=== PATIENT | female | born 1950 | race Caucasian/White ===

== ENCOUNTER 2017-01-23 01:56 | Emergency (ER) | payer MEDICARE, OTHER ==
[2017-01-23] MEDS ORDERED: Aspirin Low Dose CHEW TAB* 81 MG PO ONE (02:21)
[2017-01-23 03:03] LABS: Hematocrit 40 % (35-47); Hemoglobin 13.5 g/dl (12.0-16.0); Mean Corpuscular HGB Conc 34 g/dl (31-36); Mean Corpuscular Hemoglobin 29 pg (27-31); Mean Corpuscular Volume 87 fL (80-97); Mean Platelet Volume 9 um3 (7.4-10.4); Red Blood Count 4.65 10^6/ul (4.0-5.4); Red Cell Distribution Width 14 % (10.5-15)
[2017-01-23 03:16] LABS: Albumin 3.8 g/dL (3.2-5.2); BUN/Creatinine Ratio 23.3 (8-20); Calcium 9.5 mg/dL (8.6-10.3); EGFR African American 102.6 (>60); EGFR Non-African American 79.8 (>60); Globulin 2.7 g/dL (2-4); Potassium 3.9 mmol/L (3.5-5.0); Total Bilirubin 0.3 mg/dL (0.2-1.0); Total Protein 6.5 g/dL (6.4-8.9)
[2017-01-23 03:19] LABS: Troponin I 0.01 ng/mL (<0.04)
[2017-01-23] MEDS ORDERED: Iohexol 350* (CONTRAST) 500 ML MDV IV ONE (03:53)
--- NOTE | 2017-01-23 04:33 | ED ---
yudith Douglas Timothy, scribed for Gwyn Mckinney MD on 01/23/17 at 0214 . HPI Chest Pain - HPI Summary HPI Summary: Daxa Perez is a 66 yo female presenting to [facility] with constant SOB and 8 /10 chest tightness worsening for the past 3 days. She states it is hard to breathe and hard to move, and these actions increase her pain. She has self- medicated with ibuprofen with mild relief. Her MHx includes anus CA 2006, claustraphobia. - History of Current Complaint Time Seen by Provider: 01/23/17 02:20 Hx Obtained From: Patient Onset/Duration: Started Days Ago, Still Present Timing: Constant Initial Severity: Worse Since: - now Current Severity: Moderate Pain Intensity: 8 Pain Scale Used: 0-10 Numeric Chest Pain Location: Diffuse Character: Dyspnea at Rest, Tightness Aggravating Factor(s): Movement, Deep Breaths Associated Signs and Symptoms: Positive: Chest Pain, Shortness of Breath - Allergy/Home Medications Allergies/Adverse Reactions: Allergies Allergy/AdvReac Type Severity Reaction Status Date / Time Sulfa Drugs Allergy Intermediate Hives Verified 03/18/14 10:48 Cold Allergy Airway Uncoded 01/23/17 02:10 Obstruction PMH/Surg Hx/FS Hx/Imm Hx Endocrine/Hematology History: Denies: Hx Diabetes Cardiovascular History: Denies: Hx Hypertension, Hx Pacemaker/ICD History: Denies: Hx Dialysis, Hx Renal Disease Musculoskeletal History: Denies: Hx Osteoporosis Sensory History: Denies: Hx Hearing Aid Psychiatric History: Denies: Hx Panic Disorder - Cancer History Cancer Type, Location and Year: ANUS CA 2006 - Surgical History Surgery Procedure, Year, and Place: CYSTOSCOPY AGE 20. 2006 REMOVAL OF CANCER FROM ANUS Infectious Disease History: Denies: Traveled Outside the [place] in Last 30 Days - Family History Known Family History: Positive: Cardiac Disease - maternal, Other - stroke maternal, leukemia paternal - Social History Alcohol Use: None Substance Use Type: Reports: None Hx Tobacco Use: No Smoking Status (MU): Never Smoked Tobacco Review of Systems Constitutional: Negative Eyes: Negative ENT: Negative Positive: Chest Pain - tightness Positive: Shortness Of Breath Gastrointestinal: Negative Genitourinary: Negative Musculoskeletal: Negative Skin: Negative Neurological: Negative Psychological: Normal All Other Systems Reviewed And Are Negative: Yes Physical Exam Triage Information Reviewed: Yes Vital Signs On Initial Exam: Initial Vitals Temp Pulse Resp BP Pulse Ox 97.2 F 56 18 113/99 99 01/23/17 01:58 01/23/17 01:58 01/23/17 01:58 01/23/17 01:58 01/23/17 01:58 Vital Signs Reviewed: Yes Appearance: Positive: Well-Appearing, No Pain Distress Skin: Positive: Warm Head/Face: Positive: Normal Head/Face Inspection Eyes: Positive: TUCKER ENT: Positive: Hearing grossly normal Neck: Positive: Supple, Nontender Respiratory/Lung Sounds: Positive: Clear to Auscultation, Breath Sounds Present Cardiovascular: Positive: RRR Abdomen Description: Positive: Nontender, Soft Bowel Sounds: Positive: Present Musculoskeletal: Positive: Strength/ROM Intact Neurological: Positive: Alert, Oriented to Person Place, Time Psychiatric: Positive: Affect/Mood Appropriate Diagnostics - Vital Signs Vital Signs Temp Pulse Resp BP Pulse Ox 01/23/17 01:58 97.2 F 56 18 113/99 99 - Laboratory Lab Results: Lab Results 01/23/17 01/23/17 01/23/17 Range/Units 02:45 02:45 02:45 WBC 6.0 (3.5-10.8) 10^3/ul RBC 4.65 (4.0-5.4) 10^6/ul Hgb 13.5 (12.0-16.0) g/dl Hct 40 (35-47) % MCV 87 (80-97) fL MCH 29 (27-31) pg MCHC 34 (31-36) g/dl RDW 14 (10.5-15) % Plt Count 179 (150-450) 10^3/ul MPV 9 (7.4-10.4) um3 Neut % (Auto) 73.1 (38-83) % Lymph % (Auto) 15.4 L (25-47) % [place] % (Auto) 5.3 (1-9) % Eos % (Auto) 4.5 (0-6) % Baso % (Auto) 1.7 (0-2) % Absolute Neuts (auto) 4.4 (1.5-7.7) 10^3/ul Absolute Lymphs (auto) 0.9 L (1.0-4.8) 10^3/ul Absolute Monos (auto) 0.3 (0-0.8) 10^3/ul Absolute Eos (auto) 0.3 (0-0.6) 10^3/ul Absolute Basos (auto) 0.1 (0-0.2) 10^3/ul Absolute Nucleated RBC 0 10^3/ul Nucleated RBC % 0.1 D-Dimer, Quantitative (Less Than 230) ng/mL Sodium 135 (133-145) mmol/L Potassium 3.9 (3.5-5.0) mmol/L Chloride 104 (101-111) mmol/L Carbon Dioxide 28 (22-32) mmol/L Anion Gap 3 (2-11) mmol/L BUN 17 (6-24) mg/dL Creatinine 0.73 (0.51-0.95) mg/dL Est GFR ( Amer) 102.6 (>60) Est GFR (Non-Af Amer) 79.8 (>60) BUN/Creatinine Ratio 23.3 H (8-20) Glucose 98 (70-100) mg/dL Lactic Acid 0.7 (0.5-2.0) mmol/L Calcium 9.5 (8.6-10.3) mg/dL Total Bilirubin 0.30 (0.2-1.0) mg/dL AST 16 (13-39) U/L ALT 18 (7-52) U/L Alkaline Phosphatase 74 (34-104) U/L Troponin I 0.01 (<0.04) ng/mL Total Protein 6.5 (6.4-8.9) g/dL Albumin 3.8 (3.2-5.2) g/dL Globulin 2.7 (2-4) g/dL Albumin/Globulin Ratio 1.4 (1-3) 01/23/17 Range/Units 02:45 WBC (3.5-10.8) 10^3/ul RBC (4.0-5.4) 10^6/ul Hgb (12.0-16.0) g/dl Hct (35-47) % MCV (80-97) fL MCH (27-31) pg MCHC (31-36) g/dl RDW (10.5-15) % Plt Count (150-450) 10^3/ul MPV (7.4-10.4) um3 Neut % (Auto) (38-83) % Lymph % (Auto) (25-47) % [place] % (Auto) (1-9) % Eos % (Auto) (0-6) % Baso % (Auto) (0-2) % Absolute Neuts (auto) (1.5-7.7) 10^3/ul Absolute Lymphs (auto) (1.0-4.8) 10^3/ul Absolute Monos (auto) (0-0.8) 10^3/ul Absolute Eos (auto) (0-0.6) 10^3/ul Absolute Basos (auto) (0-0.2) 10^3/ul Absolute Nucleated RBC 10^3/ul Nucleated RBC % D-Dimer, Quantitative 237 H (Less Than 230) ng/mL Sodium (133-145) mmol/L Potassium (3.5-5.0) mmol/L Chloride (101-111) mmol/L Carbon Dioxide (22-32) mmol/L Anion Gap (2-11) mmol/L BUN (6-24) mg/dL Creatinine (0.51-0.95) mg/dL Est GFR ( Amer) (>60) Est GFR (Non-Af Amer) (>60) BUN/Creatinine Ratio (8-20) Glucose (70-100) mg/dL Lactic Acid (0.5-2.0) mmol/L Calcium (8.6-10.3) mg/dL Total Bilirubin (0.2-1.0) mg/dL AST (13-39) U/L ALT (7-52) U/L Alkaline Phosphatase (34-104) U/L Troponin I (<0.04) ng/mL Total Protein (6.4-8.9) g/dL Albumin (3.2-5.2) g/dL Globulin (2-4) g/dL Albumin/Globulin Ratio (1-3) Result Diagrams: 01/23/17 02:45 01/23/17 02:45 Lab Statement: Any lab studies that have been ordered have been reviewed, and results considered in the medical decision making process. - Radiology CXR Xray Interpretation: No Acute Changes - No active disease Radiology Interpretation Completed By: ED Physician - CT Chest/Thorax CTA CT Interpretation: No Acute Changes - Impression: No Pulmonary embolism identified. Air trapping noted bilaterally. Correlate for asthma or COPD exacerbation. No other acute abnormality seen in the chest or visualized in the upper abdomen. CT Interpretation Completed By: Radiologist - imaging business process consultant - EKG 0217 Cardiac Rate: Bradycardia - 52 BPM EKG Interpretation: Sinus bradycardia @ 52 BPM WNL Re-Evaluation - Re-Evaluation First Eval Re-Evaluation Time: 03:22 Change: Improved Comment: Discussed results of lab and imaging studies with Pt and her daughter. Chest Pain Course/Dx - Course Assessment/Plan: Daxa Perez is a 66 yo female presenting to [facility] with 8 /10 chest tightness and SOB worsening for the past 3 days, made worse with deep breaths and movement. In the ED course she received ASA. Her EKG suggests sinus bradycardia WNL. Her CXR suggests no active disease. Her Chest/Thorax CTA suggests air trapping bilaterally and no other acute abnormality. After clinical examination and review of her lab and imaging studies, she will be is charged home with chest pain with appropriate instructions. - Diagnoses Provider Diagnoses: Chest pain Discharge - Discharge Plan Condition: Improved Disposition: HOME Patient Education Materials: Chest Pain (ED) Referrals: Amira Chavis MD [Primary Care Provider] - 2 Days Additional Instructions: Please follow up with your primary care physician regarding your visit to the emergency department today. Return to the emergency department with any new or recurring symptoms. The documentation as recorded by the yudith braun Timothy accurately reflects the service I personally performed and the decisions made by me, Gwyn Mckinney MD.
[2017-01-23 05:01] VITALS: BP 104/56
--- NOTE | 2017-01-23 07:53 | RAD ---
HISTORY: Chest pain, shortness of breath COMPARISONS: November 29, 2010 VIEWS: 2: Frontal dual-energy and lateral views of the chest. FINDINGS: CARDIOMEDIASTINAL SILHOUETTE: The cardiomediastinal silhouette is normal. HERNANDO: The hernando are normal. PLEURA: The costophrenic angles are sharp. No pleural abnormalities are noted. LUNG PARENCHYMA: The lungs are clear. ABDOMEN: The upper abdomen is clear. There is no subphrenic gas. BONES AND SOFT TISSUES: Degenerative changes are noted of the spine. There is scoliotic curvature of the spine OTHER: None. IMPRESSION: NO ACTIVE CARDIOPULMONARY DISEASE.
--- NOTE | 2017-01-23 08:06 | RAD ---
INDICATION: Shortness of breath and elevated d-dimer. COMPARISON: Comparison is made with a prior outside PET/CT study from February 24, 2014 and a chest x-ray study from January 23, 2017. TECHNIQUE: A CT angiogram of the chest was performed with intravenous following intravenous injection of 69 ml of Omnipaque 350 nonionic contrast. Contiguous axial sections were obtained from the lung apices through the lung bases. Images were reconstructed in the coronal and sagittal planes. FINDINGS: There is relatively homogeneous opacification of the pulmonary arteries. No intraluminal filling defect or pulmonary embolism is seen. The heart is within normal limits in size. No pericardial effusion is present. The aorta is normal in caliber. No significant enlarged mediastinal or hilar lymph nodes are seen. There are numerous calcified and noncalcified small bilateral pulmonary nodules. The nodules appears similar to the prior PET/CT study taken in account differences in technique and would be consistent with old granulomatous disease. There is mild bilateral air trapping. No significant infiltrate or pleural effusion is seen. No acute finding is seen within the upper abdomen. There is a [id number] dorsal scoliosis convex toward the right side. No significant focal osseous abnormality is seen. IMPRESSION: 1. NO EVIDENCE FOR PULMONARY EMBOLISM. 2. FINDINGS CONSISTENT WITH OLD GRANULOMATOUS DISEASE.
== END 2017-01-23 05:02 | disposition home or self-care (01) ==
LOC: ED 01:56
DX: R07.9 Chest pain, unspecified (principal); R06.02 Shortness of breath
CPT/HCPCS: 36415; 71020; 71275; 80053; 83605; 84484; 85025; 85379; 93005; 99283; A9270-GY; Q9967

== ENCOUNTER 2017-02-17 15:16 | Emergency (ER) | payer MEDICARE ==
[2017-02-17 15:25] VITALS: BP 106/69
[2017-02-17] MEDS ORDERED: Ondansetron ODT TAB* 4 MG PO ONE ×2 (15:47→16:41)
[2017-02-17] MEDS ORDERED: Al Hydrox/Mg Hydrox/Simet LIQ* 30 ML UDC PO ONE (15:48)
--- NOTE | 2017-02-17 15:55 | UC ---
Abdominal Pain Female HPI - HPI Summary HPI Summary: 66 yo female inadvertently drank a couple of sips of tea that had a descaling solution in tip mid gi upset and bruning Poison Control suggest that this is a non life threatening ingestion and symptomatic treatment only main ingredient citric acid - History of Current Complaint Chief Complaint: UCGI Stated Complaint: DRANK CLEANING SOLUTION Time Seen by Provider: 02/17/17 15:33 Allergies/Adverse Reactions: Allergies Allergy/AdvReac Type Severity Reaction Status Date / Time Sulfa Drugs Allergy Intermediate Hives Verified 02/17/17 15:25 Cold Allergy Airway Uncoded 01/23/17 02:10 Obstruction Home Medications: Home Medications [place]-3 Fatty Acids [Fish Oil] 02/17/17 [History] Turmeric (Curcuma Longa) (Bulk [Turmeric] 1 pow XX 02/17/17 [History] PMH/Surg Hx/FS Hx/Imm Hx - Surgical History Surgical History: Yes Surgery Procedure, Year, and Place: CYSTOSCOPY AGE 20. 2006 REMOVAL OF CANCER FROM ANUS - Family History Known Family History: Positive: Cardiac Disease - maternal, Other - stroke maternal, leukemia paternal - Social History Alcohol Use: None Substance Use Type: None Smoking Status (MU): Never Smoked Tobacco Review of Systems Constitutional: Negative Skin: Negative Eyes: Negative ENT: Negative Respiratory: Negative Cardiovascular: Negative Gastrointestinal: Nausea Genitourinary: Negative Motor: Negative Neurovascular: Negative Musculoskeletal: Negative Neurological: Negative Psychological: Negative All Other Systems Reviewed And Are Negative: Yes Physical Exam Triage Information Reviewed: Yes Appearance: Well-Appearing, No Pain Distress, Well-Nourished Vital Signs: Initial Vital Signs Temp 98.2 F 02/17/17 15:20 Pulse 74 02/17/17 15:20 Resp 16 02/17/17 15:20 BP 106/69 02/17/17 15:20 Pulse Ox 100 02/17/17 15:20 Eye Exam: Normal Eyes: Positive: Conjunctiva Clear ENT: Positive: Hearing grossly normal. Negative: Nasal congestion, Nasal drainage, Tonsillar exudate, Trismus, Muffled/hoarse voice Neck: Positive: Supple, Nontender, No Lymphadenopathy Respiratory: Positive: Lungs clear, Normal breath sounds, No respiratory distress, No accessory muscle use Cardiovascular: Positive: RRR, No Murmur Abdomen Description: Positive: Nontender, Soft Musculoskeletal: Positive: ROM Intact, No Edema Neurological: Positive: Alert Psychological Exam: Normal Skin Exam: Normal Re-Evaluation - Re-Evaluation First Eval Re-Evaluation Time: 16:35 Change: Improved - no nausea/no longer burping Abd Pain Female Course/Dx - Differential Dx/Diagnosis Provider Diagnoses: esophagitis Discharge - Discharge Plan Condition: Stable Disposition: HOME Patient Education Materials: Esophagitis (ED) Referrals: Marlee Clay MD [Primary Care Provider] - If Needed Additional Instructions: MYLANTA 30 ML (2 tablespoons) every 2 hours while awake for 2-3 days
== END 2017-02-17 16:59 | disposition home or self-care (01) ==
LOC: UCEAST 15:16
DX: T65.891A Toxic effect of other specified substances, accidental (unintentional), initial encounter (principal); K20.9 Esophagitis, unspecified; Y92.9 Unspecified place or not applicable; Z88.2 Allergy status to sulfonamides
CPT/HCPCS: 99213; A9270-GY; G0463

== ENCOUNTER 2018-04-27 10:30 | Emergency (ER) | payer MEDICARE ==
[2018-04-27] MEDS ORDERED: Famotidine TAB* 20 MG PO ONE (11:33)
--- NOTE | 2018-04-27 12:04 | ED ---
Allergic Reaction/Systemic - HPI Summary HPI Summary: Patient is a 68-year-old female presenting to the ED with a possible allergic reaction. Patient states she was stung by a bee or a wasp this morning twice. She immediately took 50 of Benadryl and proceeded to go to [facility]. When she arrived at [facility] she started feeling dizzy, lightheaded with some sore throat symptoms. She called the ambulance and arrives stable into the ED. She is endorsing some mild chest pressure and tightening of the throat. She remains able to communicate well, and appears well. - History of Current Complaint Chief Complaint: EDAllergicReaction Time Seen by Provider: 04/27/18 10:35 Hx Obtained From: Patient Onset/Duration: Sudden Onset Timing: Constant Severity Initially: Moderate Severity Currently: Moderate Pain Intensity: 2 Pain Scale Used: 0-10 Numeric Associated Signs And Symptoms: Positive: Negative - Allergies/Home Medications Allergies/Adverse Reactions: Allergies Allergy/AdvReac Type Severity Reaction Status Date / Time Sulfa (Sulfonamide Allergy Hives Verified 04/27/18 10:44 Antibiotics) Cold Allergy Airway Uncoded 04/27/18 10:44 Obstruction Home Medications: Home Medications Meclizine HCl 12.5 mg PO TID PRN 04/27/18 [History Confirmed 04/27/18] PMH/Surg Hx/FS Hx/Imm Hx Previously Healthy: Yes Endocrine/Hematology History: Denies: Hx Diabetes Cardiovascular History: Denies: Hx Hypertension, Hx Pacemaker/ICD History: Denies: Hx Dialysis, Hx Renal Disease Musculoskeletal History: Denies: Hx Osteoporosis Sensory History: Denies: Hx Hearing Aid Psychiatric History: Denies: Hx Panic Disorder - Cancer History Cancer Type, Location and Year: ANUS CA 2006 - Surgical History Surgery Procedure, Year, and Place: CYSTOSCOPY AGE 20. 2006 REMOVAL OF CANCER FROM ANUS - Immunization History Hx Pertussis Vaccination: No Immunizations Up to Date: Unable to Obtain/Confirm Infectious Disease History: No Infectious Disease History: Denies: Traveled Outside the [place] in Last 30 Days - Family History Known Family History: Positive: Cardiac Disease - maternal, Other - stroke maternal, leukemia paternal - Social History Occupation: Unemployed Lives: With Family Alcohol Use: None Hx Substance Use: No Substance Use Type: Reports: None Hx Tobacco Use: No Smoking Status (MU): Never Smoked Tobacco Review of Systems Constitutional: Negative Negative: Fever, Chills, Fatigue, Skin Diaphoresis Negative: Sore Throat, Ear Ache, Nasal Discharge Negative: Palpitations, Chest Pain Negative: Shortness Of Breath, Cough Positive: no symptoms reported, see HPI Musculoskeletal: Negative Negative: Arthralgia, Myalgia Positive: Rash - 2 inesct wound - one to the leg and one to the back - erythematous and pruritic - without ecchymosis or swelling. Negative: Bruising Negative: Anxious, Depressed All Other Systems Reviewed And Are Negative: Yes Physical Exam Triage Information Reviewed: Yes Vital Signs On Initial Exam: Initial Vitals Temp Pulse Resp BP Pulse Ox 97.7 F 65 16 112/77 97 04/27/18 10:36 04/27/18 10:36 04/27/18 10:36 04/27/18 10:36 04/27/18 10:36 Vital Signs Reviewed: Yes Appearance: Positive: Well-Appearing, Well-Nourished Skin: Positive: Warm, Skin Color Reflects Adequate Perfusion Head/Face: Positive: Normal Head/Face Inspection Eyes: Positive: EOMI, TUCKER, Conjunctiva Clear Neck: Positive: Supple, No Lymphadenopathy Respiratory/Lung Sounds: Positive: Clear to Auscultation, Breath Sounds Present Cardiovascular: Positive: RRR, Pulses are Symmetrical in both Upper and Lower Extremities Musculoskeletal: Positive: Normal, Strength/ROM Intact Neurological: Positive: Sensory/Motor Intact, Alert, Oriented to Person Place, Time, Speech Normal Psychiatric: Positive: Normal, Affect/Mood Appropriate AVPU Assessment: Alert Diagnostics - Vital Signs Vital Signs Temp Pulse Resp BP Pulse Ox 04/27/18 11:00 64 97 04/27/18 10:49 64 95 04/27/18 10:36 97.7 F 65 16 112/77 97 - Laboratory Lab Statement: Any lab studies that have been ordered have been reviewed, and results considered in the medical decision making process. Allergic Reaction Course/Dx - Course Course Of Treatment: Patient's evaluated for allergic reaction. Airway patent, no pharyngeal erythema or symptoms of throat closing. Lungs CTA. RRR. Patient appears very well in speaking normally. Since she has taken Benadryl 2 hours prior to arrival, she is given famotidine. Discussed giving steroids, but she would like to defer at this time due to potential side effects. Reassessment approximately 40 minutes later, she has improved and states she is okay for discharge. She is given return precautions. - Diagnoses Differential Diagnosis/HQI/PQRI: Positive: Local Allergic Reaction Provider Diagnoses: Allergic reaction Discharge - Sign-Out/Discharge Documenting (check all that apply): Patient Departure - Discharge Plan Condition: Stable Disposition: HOME Referrals: Marlee Clay MD [Primary Care Provider] - - Billing Disposition and Condition Condition: STABLE Disposition: Home
[2018-04-27 12:05] VITALS: BP 103/63
[2018-04-27] MEDS ORDERED: Albuterol HFA INHALER* 8 gm MDI INH ONE (12:12)
== END 2018-04-27 12:18 | disposition home or self-care (01) ==
LOC: ED 10:30
DX: T78.40XA Allergy, unspecified, initial encounter (principal); X58.XXXA Exposure to other specified factors, initial encounter; Z85.048 Personal history of other malignant neoplasm of rectum, rectosigmoid junction, and anus
CPT/HCPCS: 99282; A9270-GY

== ENCOUNTER 2018-05-10 17:14 | Emergency (ER) | payer MEDICARE ==
[2018-05-10] MEDS ORDERED: NS 0.9% 1000 ML* 1,000 ML IV ONE (17:30)
[2018-05-10 17:50] LABS: ABS Basophils 0.1 10^3/ul (0-0.2); ABS Eosinophils 0.1 10^3/ul (0-0.6); ABS Monocytes 0.3 10^3/ul (0-0.8); ABS Neutrophils 5.3 10^3/ul (1.5-7.7); ABS Nucleated RBC 0 10^3/ul; Eosinophil % 2.2 % (0-6); Hematocrit 42 % (35-47); Hemoglobin 14.4 g/dl (12.0-16.0); Lymphocyte % 14.4 % (25-47); Mean Corpuscular HGB Conc 34 g/dl (31-36); Mean Corpuscular Hemoglobin 30 pg (27-31); Mean Corpuscular Volume 87 fL (80-97); Mean Platelet Volume 8.7 um3 (7.4-10.4); Nucleated Red Blood Cells % 0; Platelet Count 200 10^3/ul (150-450); Red Blood Count 4.81 10^6/ul (4.00-5.40); Red Cell Distribution Width 14 % (10.5-15); White Blood Count 6.8 10^3/ul (3.5-10.8)
--- NOTE | 2018-05-10 18:00 | ED ---
Syncope/Near Syncope - HPI Summary HPI Summary: Patient complains of lightheadedness, decreased ability to concentrate, shortness of breath, nausea after being in the sun today. Patient states she was reading in the sun for 40 minutes. Denies fever, AMS, focal deficits, MARIANO, CP, V/D, cough, sore throat, abdominal pain, change in urine, change in BM, . Medical history is A. fib. - History Of Current Complaint Chief Complaint: EDDizziness Time Seen by Provider: 05/10/18 17:43 Hx Obtained From: Patient Onset/Duration: Sudden Onset Timing: Constant Activity At Onset: At Rest Associated Head Trauma: No Aggravating Factor(s): Nothing Alleviating Factor(s): Nothing Associated Signs And Symptoms: Head Trauma (Remote), Lightheadedness, Shortness Of Breath - Allergies/Home Medications Allergies/Adverse Reactions: Allergies Allergy/AdvReac Type Severity Reaction Status Date / Time Sulfa (Sulfonamide Allergy Hives Verified 05/10/18 17:55 Antibiotics) Cold Allergy Airway Uncoded 05/10/18 17:29 Obstruction PMH/Surg Hx/FS Hx/Imm Hx Endocrine/Hematology History: Denies: Hx Anticoagulant Therapy, Hx Diabetes Cardiovascular History: Reports: Hx Atrial Fibrillation Denies: Hx Hypertension, Hx Pacemaker/ICD History: Denies: Hx Dialysis, Hx Renal Disease Musculoskeletal History: Denies: Hx Osteoporosis Sensory History: Denies: Hx Hearing Aid Neurological History: Denies: Hx CVA Psychiatric History: Denies: Hx Panic Disorder - Cancer History Cancer Type, Location and Year: ANUS CA 2006 - Surgical History Surgery Procedure, Year, and Place: CYSTOSCOPY AGE 20. 2006 REMOVAL OF CANCER FROM ANUS Infectious Disease History: No Infectious Disease History: Denies: Traveled Outside the [place] in Last 30 Days - Family History Known Family History: Positive: Cardiac Disease - maternal, Other - stroke maternal, leukemia paternal - Social History Alcohol Use: None Hx Substance Use: No Substance Use Type: Reports: None Hx Tobacco Use: No Smoking Status (MU): Never Smoked Tobacco Review of Systems Constitutional: Negative Eyes: Negative ENT: Negative Cardiovascular: Negative Positive: Shortness Of Breath Gastrointestinal: Negative Genitourinary: Negative Musculoskeletal: Negative Skin: Negative Neurological: Other - decreased ability to concentrate, lightheadedness Positive: Weakness Psychological: Normal All Other Systems Reviewed And Are Negative: Yes Physical Exam - Summary Physical Exam Summary: Neuro exam normal. Physical exam unremarkable. No peripheral edema Triage Information Reviewed: Yes Vital Signs On Initial Exam: Initial Vitals Temp Pulse Resp BP Pulse Ox 97.3 F 65 14 109/76 100 05/10/18 17:20 05/10/18 17:20 18 17:20 05/10/18 17:20 05/10/18 17:20 Vital Signs Reviewed: Yes Appearance: Positive: Well-Appearing Skin: Positive: Warm Head/Face: Positive: Normal Head/Face Inspection Eyes: Positive: Normal Neck: Positive: Supple Respiratory/Lung Sounds: Positive: Clear to Auscultation Cardiovascular: Positive: Normal Abdomen Description: Positive: Nontender Musculoskeletal: Positive: Normal Neurological: Positive: Normal Psychiatric: Positive: Normal AVPU Assessment: Alert - [place] Coma Scale Best Eye Response: 4 - Spontaneous Best Motor Response: 6 - Obeys Commands Best Verbal Response: 5 - Oriented Coma Scale Total: 15 Diagnostics - Vital Signs Vital Signs Temp Pulse Resp BP Pulse Ox 05/10/18 17:20 97.3 F 65 14 109/76 100 - Laboratory Lab Results: Lab Results 05/10/18 Range/Units 17:39 WBC 6.8 (3.5-10.8) 10^3/ul RBC 4.81 (4.00-5.40) 10^6/ul Hgb 14.4 (12.0-16.0) g/dl Hct 42 (35-47) % MCV 87 (80-97) fL MCH 30 (27-31) pg MCHC 34 (31-36) g/dl RDW 14 (10.5-15) % Plt Count 200 (150-450) 10^3/ul MPV 8.7 (7.4-10.4) um3 Neut % (Auto) 77.6 (38-83) % Lymph % (Auto) 14.4 L (25-47) % [place] % (Auto) 5.0 (0-7) % Eos % (Auto) 2.2 (0-6) % Baso % (Auto) 0.8 (0-2) % Absolute Neuts (auto) 5.3 (1.5-7.7) 10^3/ul Absolute Lymphs (auto) 1.0 (1.0-4.8) 10^3/ul Absolute Monos (auto) 0.3 (0-0.8) 10^3/ul Absolute Eos (auto) 0.1 (0-0.6) 10^3/ul Absolute Basos (auto) 0.1 (0-0.2) 10^3/ul Absolute Nucleated RBC 0 10^3/ul Nucleated RBC % 0 Result Diagrams: 05/10/18 17:39 05/10/18 19:15 Lab Statement: Any lab studies that have been ordered have been reviewed, and results considered in the medical decision making process. - Radiology cxr Xray Interpretation: No Acute Changes Radiology Interpretation Completed By: ED Physician - EKG 1 Cardiac Rate: NL EKG Rhythm: Sinus Rhythm ST Segment: Non-Specific Ectopy: None EKG Comparison: Other - 01/23/17 Course/Dx Course Of Treatment: Patient complains of lightheadedness, decreased ability to concentrate, shortness of breath, nausea after being in the sun today. Patient states she was reading in the sun for 40 minutes. Denies fever, AMS, focal deficits, MARIANO, CP, V/D, cough, sore throat, abdominal pain, change in urine, change in BM, . Medical history is A. fib. Neuro exam normal. Physical exam unremarkable. No peripheral edema. Patient ambulatory with minimal assistance. Vital signs within normal limits. UA neg. Labs unremarkable except for some dehydration. Chest x-ray unremarkable. EKG unremarkable and similar to prior on 01/23/17. Staff unable to get IV access, patient has agreed to hydrate by mouth. Has had 2 large cups of water here in the ED - Diagnoses Provider Diagnoses: Dehydration Discharge - Sign-Out/Discharge Documenting (check all that apply): Patient Departure - Discharge Plan Condition: Stable Disposition: HOME Patient Education Materials: Dehydration (ED) Referrals: Marlee Clay MD [Primary Care Provider] - Additional Instructions: Drink plenty of fluids. Maintain hydration. Return to the ED for any new or worsening symptoms - Billing Disposition and Condition Condition: STABLE Disposition: Home
[2018-05-10 18:05] LABS: EGFR Non-African American 81.9 (>60)
[2018-05-10 18:19] LABS: Urine Appearance Clear; Urine Blood 1+ (Negative); Urine Color Colorless; Urine Ketones Negative (Negative); Urine Protein Negative (Negative); Urine Red Blood Cell Trace(0-2/hpf) (Absent); Urine Specific Gravity 1.001 (1.010-1.030); Urine Urobilinogen Negative (Negative); Urine White Blood Cell Trace(0-5/hpf) (Absent)
[2018-05-10 19:35] LABS: INR 0.94 (0.77-1.02)
[2018-05-10] MEDS ORDERED: Meclizine TAB* 12.5 MG PO ONE (20:28)
[2018-05-10 20:51] VITALS: BP 134/83
--- NOTE | 2018-05-11 08:51 | RAD ---
INDICATION: Dizziness and nausea COMPARISON: Most recent comparison chest x-ray is dated January 23, 2017 TECHNIQUE: PA and lateral views of the chest were obtained. FINDINGS: The heart and mediastinum are normal in size and contour. The lungs are grossly clear. There is no evidence of large pleural effusion. Again seen are degenerative changes of the thoracic spine including loss of intervertebral disc height and anterior marginal osteophyte formation. There is no radiographic evidence of free air beneath the diaphragm IMPRESSION: No radiographic evidence of acute cardiopulmonary disease. R0
== END 2018-05-10 20:51 | disposition home or self-care (01) ==
LOC: ED 17:14
CPT/HCPCS: 36415; 71046; 80048; 81003; 81015; 83735; 83880; 84443; 84484; 85025; 85610; 87086; 93005

== ENCOUNTER 2018-06-04 07:41 | Observation (INO) | payer MEDICARE ==
--- NOTE | 2018-06-04 08:08 | ED ---
HPI Chest Pain - HPI Summary HPI Summary: This pt is a 68 y/o female presenting to [facility] c/o intermittent chest tightness for a couple of days now. Pt additionally reports SOB, right hand tingling, nausea, neck pain. She states most recent episode of chest tightness began this morning around 04:00. Pt notes radiation to left upper extremity and neck. At 06 :00 pt took 4 baby aspirin with no relief. Currently she states her pain is rated 7 or 8 out of 10 in severity. Pt reports she has had recent stress over the last couple of months and trouble sleeping. Pt states she was in the ED a couple of weeks ago for dizziness and nausea but was discharged with dehydration. She notes she saw her PCP (Dr. Rhoades) and had a brain MRI that resulted negative. Pt had an echocardiogram one week ago and followed up with her table games manager, who placed her in a holter monitor for the weekend. She has a scheduled stress test next week. PMHx includes head injury treated for at the concussion clinic, rectal CA treated with radiation, and cardiac cath for afib (16 years ago). Pt takes magnesium PO. - History of Current Complaint Chief Complaint: EDChestPainROMI Time Seen by Provider: 06/04/18 07:54 Hx Obtained From: Patient Onset/Duration: Started Days Ago, Still Present Timing: Lasting Days Current Severity: Severe Pain Intensity: 8 Pain Scale Used: 0-10 Numeric Chest Pain Location: Diffuse Chest Pain Radiates: No Character: Tightness Aggravating Factor(s): Nothing Alleviating Factor(s): Nothing Associated Signs and Symptoms: Positive: Chest Pain, Recent Stress, Tingling - right hand, Shortness of Breath, Nausea, Other: - neck pain. Negative: Fever, Chills, Vomiting - Allergy/Home Medications Allergies/Adverse Reactions: Allergies Allergy/AdvReac Type Severity Reaction Status Date / Time Sulfa (Sulfonamide Allergy Hives Verified 06/04/18 07:49 Antibiotics) Cold Allergy Airway Uncoded 06/04/18 07:49 Obstruction Home Medications: Home Medications Albuterol HFA INHALER* [Ventolin HFA Inhaler*] 2 puff INH Q6H PRN 06/04/18 [ History Confirmed 06/04/18] Aspirin 81 mg CHEW TAB* [Aspirin Low Dose TAB*] 81 mg PO DAILY PRN 06/04/18 [ History Confirmed 06/04/18] Cholecalciferol TAB* [Vitamin D TAB*] 1,000 unit PO DAILY 06/04/18 [History Confirmed 06/04/18] Cholecalciferol TAB* [Vitamin D TAB*] 1,000 unit PO DAILY 06/04/18 [History Confirmed 06/04/18] EPINEPHrine [Epipen 2-Sandor] 0.3 mg IM ONCE PRN 06/04/18 [History Confirmed ] Magnesium [Magnesium Elemental] 600 - 1,000 mg PO DAILY 06/04/18 [History Confirmed 06/04/18] Meclizine TAB* [Antivert 12.5 TAB*] 12.5 mg PO ONCE PRN 06/04/18 [History Confirmed 06/04/18] Melatonin (NF) 3 mg PO BEDTIME PRN 06/04/18 [History Confirmed 06/04/18] Multivitamin [Multiple Vitamins] 1 tab PO BID WITH MEALS 06/04/18 [History Confirmed 06/04/18] Salinas-3 Fatty Acids [Salinas-3] 1,000 mg PO DAILY 06/04/18 [History Confirmed 06/12] PMH/Surg Hx/FS Hx/Imm Hx Endocrine/Hematology History: Denies: Hx Anticoagulant Therapy, Hx Diabetes Cardiovascular History: Reports: Hx Atrial Fibrillation Denies: Hx Hypertension, Hx Pacemaker/ICD History: Denies: Hx Dialysis, Hx Renal Disease Musculoskeletal History: Denies: Hx Osteoporosis Sensory History: Denies: Hx Hearing Aid Neurological History: Reports: Other Neuro Impairments/Disorders - head injury Denies: Hx CVA Psychiatric History: Denies: Hx Panic Disorder - Cancer History Cancer Type, Location and Year: ANUS CA 2006 - Surgical History Surgery Procedure, Year, and Place: CYSTOSCOPY AGE 20. 2006 REMOVAL OF CANCER FROM [facility] Infectious Disease History: No Infectious Disease History: Denies: Traveled Outside the [place] in Last 30 Days - Family History Known Family History: Positive: Cardiac Disease - maternal, Other - stroke maternal, leukemia paternal - Social History Alcohol Use: None Hx Substance Use: No Substance Use Type: Reports: None Hx Tobacco Use: No Smoking Status (MU): Never Smoked Tobacco Review of Systems Negative: Fever, Chills Positive: Chest Pain Positive: Shortness Of Breath Positive: Nausea. Negative: Vomiting Musculoskeletal: Other - neck pain Positive: Paresthesia - in right hand All Other Systems Reviewed And Are Negative: Yes Physical Exam - Summary Physical Exam Summary: VITAL SIGNS: Reviewed. GENERAL: Patient is a well-developed and nourished female who is lying comfortable in the stretcher. Patient is not in any acute respiratory distress. HEAD AND FACE: No signs of trauma. No ecchymosis, hematomas or skull depressions. No sinus tenderness. EYES: PERRLA, EOMI x 2, No injected conjunctiva, no nystagmus. EARS: Hearing grossly intact. Ear canals and tympanic membranes are within normal limits. MOUTH: Oropharynx within normal limits. NECK: Supple, trachea is midline, no adenopathy, no JVD, no carotid bruit, no c- spine tenderness, neck with full ROM. CHEST: Symmetric, no tenderness at palpation LUNGS: Clear to auscultation bilaterally. No wheezing or crackles. CVS: Regular rate and rhythm, S1 and S2 present, no murmurs or gallops appreciated. ABDOMEN: Soft, non-tender. No signs of distention. No rebound, no guarding, and no masses palpated. Bowel sounds are normal. EXTREMITIES: FROM in all major joints, no edema, no cyanosis or clubbing. NEURO: Alert and oriented x 3. No acute neurological deficits. Speech is normal and follows commands. SKIN: Dry and warm Triage Information Reviewed: Yes Vital Signs On Initial Exam: Initial Vitals Temp Pulse Resp BP Pulse Ox 97.9 F 74 18 144/90 98 06/04/18 07:44 06/04/18 07:44 06/04/18 07:44 06/04/18 07:44 06/04/18 07:44 Vital Signs Reviewed: Yes Diagnostics - Vital Signs Vital Signs Temp Pulse Resp BP Pulse Ox 06/04/18 07:44 97.9 F 74 18 144/90 98 - Laboratory Result Diagrams: 06/05/18 06:42 06/05/18 06:42 Lab Statement: Any lab studies that have been ordered have been reviewed, and results considered in the medical decision making process. - Radiology Chest XR Xray Interpretation: No Acute Changes - IMPRESSION: COPD. No active cardiopulmonary disease. Dr. Felder has reviewed this report. Radiology Interpretation Completed By: Radiologist - EKG 07:53 Cardiac Rate: NL - at 63 bpm EKG Rhythm: Sinus Rhythm EKG Interpretation: No ST elevation. Chest Pain Course/Dx - Course Assessment/Plan: This pt is a 68 y/o female presenting to [facility] c/o intermittent chest tightness for a couple of days now. Pt additionally reports SOB, right hand tingling, nausea, neck pain. She states most recent episode of chest tightness began this morning around 04:00. Pt notes radiation to left upper extremity and neck. At 06:00 pt took 4 baby aspirin with no relief. Currently she states her pain is rated 7 or 8 out of 10 in severity. Pt reports she has had recent stress over the last couple of months and trouble sleeping. Pt states she was in the ED a couple of weeks ago for dizziness and nausea but was discharged with dehydration. She notes she saw her PCP (Dr. Rhoades) and had a brain MRI that resulted negative. Pt had an echocardiogram one week ago and followed up with her table games manager, who placed her in a holter monitor for the weekend. She has a scheduled stress test next week. PMHx includes head injury treated for at the concussion clinic, rectal CA treated with radiation, and cardiac cath for afib (16 years ago). Pt takes magnesium PO. Blood work without any significant abnormality, d-dimer is less than 200, urinalysis is negative for UTI. Chest x-ray impression: COPD. No active cardiopulmonary disease. Because the patient continues to have intermittent chest pressure with radiation to the neck and the left upper extremity I discussed the physical exam, findings and test results with Dr. Gibbs from the hospitalist services who accepted the patient for admission. Patient is hemodynamically stable, alert oriented 3. - Chest Pain Differential Diagnosis/HQI/PQRI: Acute GA, ACS, Angina, CHF, Chest Wall, GI Disease, Lower Respiratory Infection, Pulmonary Edema - Diagnoses Provider Diagnoses: Chest pain due to CAD - Provider Notifications Discussed Care Of Patient With: Rox Gibbs - hospitalist Time Discussed With Above Provider: 11:05 Instructed by Provider To: Admit As Inpatient Discharge - Sign-Out/Discharge Documenting (check all that apply): Patient Departure - admit to [facility] - Discharge Plan Condition: Stable Disposition: ADMITTED TO [facility] - Billing Disposition and Condition Condition: STABLE Disposition: Admitted to [facility] - Attestation Statements Document Initiated by Scribe: Yes Documenting Scribe: Adrienne Bernabe Provider For Whom Scribe is Documenting (Include Credential): Jayden Felder MD Scribe Attestation: I, Adrienne Bernabe, scribed for Jayden Felder MD on 06/05/18 at 0735. Scribe Documentation Reviewed: Yes Provider Attestation: The documentation as recorded by the scribe, Adrienne Bernabe accurately reflects the service I personally performed and the decisions made by me, Jayden Felder MD
[2018-06-04 08:30] LABS: ABS Basophils 0.1 10^3/ul (0-0.2); ABS Eosinophils 0.1 10^3/ul (0-0.6); ABS Lymphocytes 0.8 10^3/ul (1.0-4.8); ABS Monocytes 0.3 10^3/ul (0-0.8); ABS Neutrophils 2.8 10^3/ul (1.5-7.7); ABS Nucleated RBC 0 10^3/ul; Eosinophil % 2.6 % (0-6); Hematocrit 40 % (35-47); Hemoglobin 13.8 g/dl (12.0-16.0); Lymphocyte % 20.3 % (25-47); Mean Corpuscular HGB Conc 35 g/dl (31-36); Mean Corpuscular Hemoglobin 30 pg (27-31); Mean Corpuscular Volume 87 fL (80-97); Mean Platelet Volume 8.4 um3 (7.4-10.4); Nucleated Red Blood Cells % 0.1; Platelet Count 201 10^3/ul (150-450); Red Blood Count 4.59 10^6/ul (4.00-5.40); Red Cell Distribution Width 14 % (10.5-15); White Blood Count 4.1 10^3/ul (3.5-10.8)
[2018-06-04 08:39] LABS: INR 0.91 (0.77-1.02)
[2018-06-04 08:50] LABS: EGFR Non-African American 81.9 (>60)
[2018-06-04 08:57] LABS: Urine Appearance Clear; Urine Blood Negative (Negative); Urine Color Colorless; Urine Ketones Negative (Negative); Urine Protein Negative (Negative); Urine Specific Gravity 1.002 (1.010-1.030); Urine Urobilinogen Negative (Negative)
--- OUTSIDE RECORDS SUMMARY | 2018-06-04 08:57 | XMS REPORT ---
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 31 mg/dL High 2-29 7 LDL (Calc) 140 mg/dL High 20-99 7, 14 CBC With Auto Diff 02/22/2017 WBC 3.9 K/uL Low 4.1-11.0 7 RBC 4.57 M/uL 4.00-5.40 7 Hemoglobin 13.4 gm/dL 12.0-16.0 7 Hematocrit 40.0 % 36.0-47.0 7 MCV 87.5 fL 80.0-97.0 7 MCH 29.2 pg 27.0-32.0 7 MCHC 33.4 g/dL 32.0-36.0 7 RDW 13.7 % 11.5-14.5 7 PLT Count 184 K/ul 140-400 7 Neutrophil 64.7 % 35.0-75.0 7 Lymphocyte 24.4 % 16.0-52.0 7 Monocyte 6.3 % 2.0-10.0 7 Eosinophil 3.7 % 0.0-5.0 7 Basophil 0.9 % 0.0-4.0 7 Abs Neutrophils 2.5 K/uL 2.1-8.0 7 Abs Lymphocytes 1.0 K/uL 0.8-5.5 7 Abs Monocytes 0.2 K/uL 0.1-1.0 7 Abs Eosinophils 0.1 K/uL 0.0-0.5 7 Abs Basophils 0.0 K/uL 0.0-0.3 7 CBC With Auto Diff 05/16/2015 WBC 4.6 K/uL 4.1-11.0 RBC 4.56 M/uL 4.00-5.40 Hemoglobin 13.6 gm/dL 12.0-16.0 Hematocrit 41.0 % 36.0-47.0 MCV 90.0 fL 80.0-97.0 MCH 29.7 pg 27.0-32.0 MCHC 33.0 g/dL 32.0-36.0 RDW 14.0 % 11.5-14.5 PLT Count 164 K/ul 140-400 Neutrophil 72.3 % 35.0-75.0 Lymphocyte 14.7 % Low 16.0-52.0 Monocyte 6.8 % 2.0-10.0 Eosinophil 5.5 % High 0.0-5.0 Basophil 0.7 % 0.0-4.0 Abs Neutrophils 3.4 K/uL 2.1-8.0 Abs Lymphocytes 0.7 K/uL Low 0.8-5.5 Abmon 0.3 K/uL 0.1-1.0 Abs Eosinophils 0.3 K/uL 0.0-0.5 Abs Basophils 0.0 K/uL 0.0-0.3 Comprehensive Metabolic (CMP) 05/16/2015 Sodium 138 mmol/L 134-142 Potassium 5.3 Specimen Sli <SEE NOTE> mmol/L High 3.5-5.2 15 Chloride 105 mmol/L 97-109 Carbon Dioxide 28 mmol/L 24-34 Glucose 61 mg/dL Low 70-105 BUN 21 mg/dL 6-26 Creatinine 0.6 mg/dL 0.5-1.4 Calcium 9.3 mg/dL 8.5-10.2 Total Protein 6.1 g/dL 6.0-8.0 Albumin 3.9 g/dL 3.6-4.9 Globulin 2.2 g/dL 2.0-3.5 A/G Ratio 1.8 Ratio 1.0-2.2 Total Bilirubin 0.4 mg/dL 0.1-1.3 Alkaline Phosphatase 69 U/L 24-140 Alt 25 U/L 3-42 Ast 18 U/L 8-42 Anion Gap 10 mmol/L 6-14 Jacinta Egfr >60 >60 16 Non Jacinta Egfr >60 >60 17 Laboratory test 05/16/2015 Urine Culture Microbiology res <SEE 18 finding NOTE> CBC With Auto Diff 01/12/2015 WBC 3.6 K/uL Low 4.1-11.0 19 RBC 4.70 M/uL 4.00-5.40 19 Hemoglobin 13.8 gm/dL 12.0-16.0 19 Hematocrit 42.4 % 36.0-47.0 19 MCV 90.3 fL 80.0-97.0 19 MCH 29.5 pg 27.0-32.0 19 MCHC 32.7 g/dL 32.0-36.0 19 RDW 14.1 % 11.5-14.5 19 PLT Count 158 K/ul 140-400 19 Neutrophil 72.2 % 35.0-75.0 19 Lymphocyte 15.6 % Low 16.0-52.0 19 Monocyte 7.0 % 2.0-10.0 19 Eosinophil 4.1 % 0.0-5.0 19 Basophil 1.1 % 0.0-4.0 19 Abs Neutrophils 2.6 K/uL 2.1-8.0 19 Abs Lymphocytes 0.6 K/uL Low 0.8-5.5 19 Abmon 0.3 K/uL 0.1-1.0 19 Abs Eosinophils 0.1 K/uL 0.0-0.5 19 Abs Basophils 0.0 K/uL 0.0-0.3 19 Comprehensive Metabolic (CMP) 01/12/2015 Sodium 139 mmol/L 134-142 19 Potassium 4.5 mmol/L 3.5-5.2 19 Chloride 104 mmol/L 97-109 19 Carbon Dioxide 29 mmol/L 24-34 19 Glucose 75 mg/dL 70-105 19 BUN 17 mg/dL 6-26 19 Creatinine 0.8 mg/dL 0.5-1.4 19 Calcium 9.7 mg/dL 8.5-10.2 19 Total Protein 6.8 g/dL 6.0-8.0 19 Albumin 4.2 g/dL 3.6-4.9 19 Globulin 2.6 g/dL 2.0-3.5 19 A/G Ratio 1.6 Ratio 1.0-2.2 19 Total Bilirubin 0.5 mg/dL 0.1-1.3 19 Alkaline Phosphatase 76 U/L 24-140 19 Alt 25 U/L 3-42 19 Ast 19 U/L 8-42 19 Anion Gap 11 mmol/L 6-14 19 Jacinta Egfr >60 >60 19, 20 Non Jacinta Egfr >60 >60 19, 21 Laboratory test finding 01/12/2015 Magnesium 2.0 mg/dL 1.5-2.7 19 Laboratory test finding 01/12/2015 Troponin I <0.06 ng/mL (0.00-0.10) 22 , 23 B Natriuretic Pep 65 pg/mL (0-100) 22, 24 Lipid 12/29/2013 Cholesterol 229 mg/dL High 50-199 25 Triglycerides 134 mg/dL 30-200 25 HDL 73 mg/dL 35-85 25, 26 Chol/ HDL Ratio 3.1 ratio Low 3.7-5.6 25 VLDL 27 mg/dL 2-29 25 LDL (Calc) 129 mg/dL High 20-99 25, 27 Laboratory test finding 12/29/2013 TSH 1.70 uIU/mL 0.34-5.60 25 Comprehensive Metabolic (CMP) 12/29/2013 Sodium 139 mmol/L 134-142 25 Potassium 4.9 mmol/L 3.5-5.2 25 Chloride 104 mmol/L 97-109 25 Carbon Dioxide 33 mmol/L 24-34 25 Glucose 91 mg/dL 70-105 25 BUN 13 mg/dL 6-26 25 Creatinine 0.6 mg/dL 0.5-1.4 25 Calcium 10.1 mg/dL 8.5-10.2 25 Total Protein 6.9 g/dL 6.0-8.0 25 Albumin 4.5 g/dL 3.6-4.9 25 Globulin 2.4 g/dL 2.0-3.5 25 A/G Ratio 1.9 Ratio 1.0-2.2 25 Total Bilirubin 0.5 mg/dL 0.1-1.3 25 Alkaline Phosphatase 73 U/L 24-140 25 Alt 23 U/L 3-42 25 Ast 18 U/L 8-42 25 Anion Gap 7 mmol/L 6-14 25 Jacinta Egfr >60 >60 25, 28 Non Jacinta Egfr >60 >60 25, 29 CBC With Auto Diff 12/29/2013 WBC 6.8 K/uL 4.1-11.0 25 RBC 4.92 M/uL 4.00-5.40 25 Hemoglobin 14.4 gm/dL 12.0-16.0 25 Hematocrit 42.3 % 36.0-47.0 25 MCV 85.9 fL 80.0-97.0 25 MCH 29.3 pg 27.0-32.0 25 MCHC 34.1 g/dL 32.0-36.0 25 RDW 13.7 % 11.5-14.5 25 PLT Count 186 K/ul 140-400 25 Neutrophil 65.0 % 35.0-75.0 25 Lymphocyte 27.5 % 16.0-52.0 25 Monocyte 4.9 % 2.0-10.0 25 Eosinophil 1.4 % 0.0-5.0 25 Basophil 1.2 % 0.0-4.0 25 Abs Neutrophils 4.5 K/uL 2.1-8.0 25 Abs Lymphocytes 1.9 K/uL 0.8-5.5 25 Abmon 0.3 K/uL 0.1-1.0 25 Abs Eosinophils 0.1 K/uL 0.0-0.5 25 Abs Basophils 0.1 K/uL 0.0-0.3 25 Laboratory test finding 12/29/2013 Vitamin B12 >1500 pg/mL High 180-914 25 Vit D,25 Hydroxy 43 ng/mL 31-100 25 Magnesium 2.1 mg/dL 1.5-2.7 25 Iron Panel 08/12/2012 Iron, Total 118 g/dL 50-170 30 Transferrin 280.9 mg/dL 203.0-362.0 30 Tibc (calc) 393 g/dL 261-478 30 % Iron Saturation 30.0 % 13.0-45.0 30 Laboratory test finding 08/12/2012 TSH 2.53 uIU/mL 0.34-5.60 30 Comprehensive Metabolic (CMP) 08/12/2012 Sodium 141 mmol/L 134-142 30 Potassium 4.7 mmol/L 3.5-5.2 30 Chloride 104 mmol/L 97-109 30 Carbon Dioxide 31 mmol/L 24-34 30 Glucose 87 mg/dL 70-105 30 BUN 19 mg/dL 6-26 30 Creatinine 0.9 mg/dL 0.5-1.4 30 Calcium 10.3 mg/dL High 8.5-10.2 30 Total Protein 7.3 g/dL 6.0-8.0 30 Albumin 4.7 g/dL 3.6-4.9 30 Globulin 2.6 g/dL 2.0-3.5 30 A/G Ratio 1.8 Ratio 1.0-2.2 30 Total Bilirubin 0.6 mg/dL 0.1-1.3 30 Alkaline Phosphatase 86 U/L 24-140 30 Alt 28 U/L 3-42 30 Ast 20 U/L 8-42 30 Anion Gap 11 mmol/L 6-14 30 Jacinta Egfr >60 >60 30, 31 Non Jacinta Egfr >60 >60 30, 32 Ebv Evaluation -RL 08/12/2012 Ebv Vca Igg @ POSITIVE (Neg) 30, 33 Ebv Vca Igm @ NEGATIVE (Neg) 30 Ebv Early Ag Igg @ NEGATIVE (Neg) 30 Ebv Nuclear Ag Igg @ POSITIVE (Neg) 30, 34 CBC With Auto Diff 08/12/2012 WBC 6.7 K/uL 4.1-11.0 30 RBC 4.91 M/uL 4.00-5.40 30 Hemoglobin 14.4 gm/dL 12.0-16.0 30 Hematocrit 42.7 % 36.0-47.0 30 MCV 87.0 fL 80.0-97.0 30 MCH 29.4 pg 27.0-32.0 30 MCHC 33.8 g/dL 32.0-36.0 30 RDW 13.8 % 11.5-14.5 30 PLT Count 181 K/ul 140-400 30 Neutrophil 64.2 % 35.0-75.0 30 Lymphocyte 27.5 % 16.0-52.0 30 Monocyte 5.2 % 2.0-10.0 30 Eosinophil 2.2 % 0.0-5.0 30 Basophil 0.9 % 0.0-4.0 30 Abs Neutrophils 4.3 K/uL 2.1-8.0 30 Abs Lymphocytes 1.8 K/uL 0.8-5.5 30 Abs Monocytes 0.4 K/uL 0.1-1.0 30 Abs Eosinophils 0.1 K/uL 0.0-0.5 30 Abs Basophils 0.1 K/uL 0.0-0.3 30 Laboratory test 12/18/2011 Cytology Fluid LAB[facility]ATORY [facility] <SEE 35 finding Specimen NOTE> Laboratory test 12/18/2011 [facility] Pap [facility] <SEE 36 finding NOTE> Laboratory test 12/18/2011 [facility] Pap Cancelled 37, 38 finding Rout Urine W/ Micro 12/18/2011 Color YELLOW 37 -RL Appearance CLEAR 37 Spec Grav Urine 1.006 (1.003-1.030) 37 PH Urine 8.0 High (5.0-7.5) 37 Leuk Esterase 2+ (Neg) 37 Nitrite Urine NEGATIVE (Neg) 37 Protein Urine NEGATIVE (Neg) 37 Glucose Urine NEGATIVE (Neg) 37 Ketone Urine NEGATIVE (Neg) 37 Urobilinogen 0.2 mg/dL (0-1.0) 37 Bilirubin Urine NEGATIVE (Neg) 37 Blood/HGB Urine TRACE (Neg) 37 Urine WBC 2 /HPF (0-8) 37 Urine RBC 3 /HPF (0-3) 37 Epithelial Cells NEGATIVE /HPF (Neg) 37 Bacteria NEGATIVE /HPF (Neg) 37 Hyaline Casts 0 /LPF (0-5) 37, 39 Comprehensive Metabolic (CMP) 12/18/2011 Sodium 140 mmol/L 134-142 37 Potassium 4.9 mmol/L 3.5-5.2 37 Chloride 102 mmol/L 97-109 37 Carbon Dioxide 32 mmol/L 24-34 37 Glucose 87 mg/dL 70-105 37 BUN 16 mg/dL 6-26 37 Creatinine 0.7 mg/dL 0.5-1.4 37 Calcium 10.1 mg/dL 8.5-10.2 37 BUN/CR 23 ratio High 12-20 37 Total Protein 7.2 g/dL 6.0-8.0 37 Albumin 4.5 g/dL 3.6-4.9 37 Globulin 2.7 g/dL 2.0-3.5 37 A/G Ratio 1.7 Ratio 1.0-2.2 37 Total Bilirubin 0.4 mg/dL 0.1-1.3 37 Alkaline Phosphatase 83 U/L 24-140 37 Alt 26 U/L 3-42 37 Ast 22 U/L 8-42 37 Anion Gap 11 mmol/L 6-14 37 Jacinta Egfr >60 >60 37, 40 Non Jacinta Egfr >60 >60 37, 41 CBC With Auto Diff 12/18/2011 WBC 6.7 K/uL 4.1-11.0 37 RBC 4.69 M/uL 4.00-5.40 37 Hemoglobin 13.6 gm/dL 12.0-16.0 37 Hematocrit 40.7 % 36.0-47.0 37 MCV 86.8 fL 80.0-97.0 37 MCH 28.9 pg 27.0-32.0 37 MCHC 33.4 g/dL 32.0-36.0 37 RDW 13.5 % 11.5-14.5 37 PLT Count 188 K/ul 140-400 37 Neutrophil 59.9 % 35.0-75.0 37 Lymphocyte 32.2 % 16.0-52.0 37 Monocyte 4.6 % 2.0-10.0 37 Eosinophil 2.5 % 0.0-5.0 37 Basophil 0.8 % 0.0-4.0 37 Abs Neutrophils 4.0 K/uL 2.1-8.0 37 Abs Lymphocytes 2.2 K/uL 0.8-5.5 37 Abs Monocytes 0.3 K/uL 0.1-1.0 37 Abs Eosinophils 0.2 K/uL 0.0-0.5 37 Abs Basophils 0.1 K/uL 0.0-0.3 37 Laboratory test finding 12/18/2011 Urine Culture Microbiology res <SEE 37, 42 NOTE> Cytology Fluid Specimen Cancelled 37, 43 Laboratory test 11/26/2011 Urine Culture Microbiology res <SEE 44 finding NOTE> Laboratory test 11/19/2011 TSH 2.53 uIU/mL 0.34-5.60 37 finding Free T4 0.66 ng/dL 0.50-1.60 37 Laboratory test finding 09/24/2011 Treponema Igg/Igm NEGATIVE (Neg) 45, 46 Vitamin B12 >1500 pg/mL High 180-914 45 Vit D,25 Hydroxy 54 ng/mL 31-100 45 Folate 19.8 ng/ml 5.9-24.8 45 TSH 3.46 uIU/mL 0.34-5.60 45 CBC With Auto Diff 09/24/2011 WBC 5.5 K/uL 4.1-11.0 45 RBC 4.70 M/uL 4.00-5.40 45 Hemoglobin 14.1 gm/dL 12.0-16.0 45 Hematocrit 40.3 % 36.0-47.0 45 MCV 85.7 fL 80.0-97.0 45 MCH 29.9 pg 27.0-32.0 45 MCHC 34.9 g/dL 32.0-36.0 45 RDW 13.2 % 11.5-14.5 45 PLT Count 194 K/ul 140-400 45 Neutrophil 64.6 % 35.0-75.0 45 Lymphocyte 27.6 % 16.0-52.0 45 Monocyte 4.5 % 2.0-10.0 45 Eosinophil 2.7 % 0.0-5.0 45 Basophil 0.6 % 0.0-4.0 45 Abs Neutrophils 3.6 K/uL 2.1-8.0 45 Abs Lymphocytes 1.5 K/uL 0.8-5.5 45 Abs Monocytes 0.2 K/uL 0.1-1.0 45 Abs Eosinophils 0.1 K/uL 0.0-0.5 45 Abs Basophils 0.0 K/uL 0.0-0.3 45 Laboratory test finding 09/24/2011 Methylmalonic Serum 0.10 umol/L 45, 47 Rast1 06/07/2011 D Pteronyssinus Conc <0.05 48 D Pteronyssinus Class Negative class 48 D Farinae Conc <0.05 48 D Farinae Class Negative class 48 Cat Epithelium Conc <0.05 48 Cat Epithelium Class Negative class 48 Dog Dander Conc <0.05 48 Dog Dander Class Negative class 48 B[place] Grass Conc <0.05 48 [place] Grass Class Negative class 48 Vijay Conc <0.05 48 Vijay Class Negative class 48 House Dust Conc <0.05 48 House Dust Class Negative class 48 Cladosporium Conc <0.05 48 Cladosporium Class Negative class 48 Aspergillus Conc <0.05 48 Aspergillus Class Negative class 48 Alternaria Conc <0.05 48 Alternaria Class Negative class 48 [place]/ Maple Conc <0.05 48 [place]/ Maple Class Negative class 48 Bryan Conc <0.05 48 Bryan Class Negative class 48 Birch Conc <0.05 48 Birch Class Negative class 48 Ragweed Short Conc <0.05 48 Ragweed Short Class Negative class 48 Jarvis's Quarter Conc <0.05 48 Jarvis's Quarter Class Negative class 48 IgE,Total 65.0 IU/mL 0.0-108.0 48 Rast 2 06/07/2011January/y Conc <0.05 48 January/y Class Negative class 48 Penicillium Conc <0.05 48 Penicillium Class Negative class 48 Rhizopus Conc <0.05 48 Rhizopus Class Negative class 48 Curvularia Conc <0.05 48 Curvularia Class Negative class 48 Mucor Conc <0.05 48 Mucor Class Negative class 48 [place] Tree Conc <0.05 48 [place] Class Negative class 48 [place] Conc <0.05 48 [place] Class Negative class 48 Elm Conc <0.05 48 Elm Class Negative class 48 Mugwort Conc <0.05 48 Mugwort Class Negative class 48 Nigerien Plantain Conc <0.05 48 Nigerien Plantain Class Negative class 48 [place] Conc <0.05 48 [place] Class Negative class 48 CBC With Auto Diff 06/07/2011 WBC 7.6 K/uL 4.1-11.0 48 RBC 4.66 M/uL 4.00-5.40 48 Hemoglobin 14.0 gm/dL 12.0-16.0 48 Hematocrit 40.4 % 36.0-47.0 48 MCV 86.7 fL 80.0-97.0 48 MCH 30.1 pg 27.0-32.0 48 MCHC 34.7 g/dL 32.0-36.0 48 RDW 13.7 % 11.5-14.5 48 PLT Count 178 K/ul 140-400 48 Neutrophil 66.4 % 35.0-75.0 48 Lymphocyte 25.7 % 16.0-52.0 48 Monocyte 5.2 % 2.0-10.0 48 Eosinophil 2.2 % 0.0-5.0 48 Basophil 0.5 % 0.0-4.0 48 Abs Neutrophils 5.0 K/uL 2.1-8.0 48 Abs Lymphocytes 1.9 K/uL 0.8-5.5 48 Abs Monocytes 0.4 K/uL 0.1-1.0 48 Abs Eosinophils 0.2 K/uL 0.0-0.5 48 Abs Basophils 0.0 K/uL 0.0-0.3 48 Comprehensive Metabolic (CMP) 06/07/2011 Sodium 139 mmol/L 135-144 48 Potassium 5.1 mmol/L 3.6-5.2 48 Chloride 104 mmol/L 97-110 48 Carbon Dioxide 27 mmol/L 23-32 48 Glucose 77 mg/dL 70-105 48 BUN 15 mg/dL 6-22 48 Creatinine 1.1 mg/dL 0.5-1.3 48 Calcium 9.6 mg/dL 8.6-10.2 48 BUN/CR 14 ratio 12-20 48 Total Protein 6.5 g/dL 5.8-7.8 48 Albumin 3.9 g/dL 3.5-4.8 48 Globulin 2.6 g/dL 2.0-3.5 48 A/G Ratio 1.5 Ratio 1.0-2.2 48 Total Bilirubin 0.6 mg/dL 0.3-1.2 48 Alkaline Phosphatase 66 U/L 24-140 48 Alt 24 U/L 5-45 48 Ast 24 U/L 12-40 48 Anion Gap 13 mmol/L 8-16 48 Non Jacinta Egfr 50 Low >60 48, 49 Jacinta Egfr >60 >60 48, 50 Laboratory test finding 06/07/2011 TSH 3.67 uIU/mL 0.34-5.60 48 CBC With Auto Diff 03/09/2010 WBC 5.6 K/ul 4.0-10.9 RBC 4.40 M/ul 4.20-5.40 Hemoglobin 13.1 GM/dl 12.5-16.0 Hematocrit 38.1 % 36.0-47.0 MCV 86.6 FL 80.0-97.0 MCH 29.9 pg 27.0-31.0 MCHC 34.5 g/dL 32.0-36.0 RDW 13.4 % 11.5-14.5 Platelet Count 181 K/ul 140-440 Neutrophils 64.5 % 50-70 Lymphocytes 24.4 % 20-44 Monocytes 6.8 % 2-9 Eosinophil 3.9 % 0-4 Basophil 0.4 % 0-2 Absolute Neutrophils 3.6 K/ul 2.05-7.63 Absolute Lymphocytes 1.4 K/ul 0.8-4.8 Absolute Monocytes 0.4 K/ul 0.1-1.0 Absolute Eosinophils 0.2 K/ul 0.1-0.5 Absolute Basophils 0.0 K/ul 0.0-0.3 Hematology Comment (Comm2) N/A CMP 03/09/2010 Sodium 138 mmol/L 135-144 Potassium 5.1 mmol/L 3.6-5.2 Chloride 104 mmol/L 97-110 Carbon Dioxide 31 mmol/L 23-32 Glucose 105 mg/dL 70-105 BUN 11 mg/dL 6-22 Creatinine 0.8 mg/dL 0.5-1.3 BUN/CR 14 Ratio Calcium 9.6 mg/dL 8.6-10.2 Total Protein 6.4 g/dL 5.8-7.8 Albumin 3.8 g/dL 3.5-4.8 Globulin 2.6 g/dL 2.0-3.5 A/G Ratio 1.5 Ratio 1.0-2.2 Total Bilirubin 0.9 mg/dL 0.3-1.2 Alkaline Phosphatase 72 U/L 24-140 Alt 29 U/L 5-45 Ast 26 U/L 12-40 Anion Gap 8 mmol/L 8-16 GFR Calculation > 60 mL/min 60-175 51 GFR For > 60 mL/min 60-175 52 Lipid Panel 03/09/2010 Cholesterol 183 mg/dL 50-199 53 Triglycerides 69 mg/dL 10-150 HDL 55 mg/dL 35-85 54 Chol/HDL Ratio 3.3 Ratio Low 3.7-5.6 55 VLDL 14 mg/dL 2-29 LDL (Calc) 114 mg/dL 20-129 56 Laboratory test finding 03/09/2010 TSH 2.14 uIU/ml 0.34-5.60 Vitamin D, 25 Hydroxy 58 ng/mL 31-100 Laboratory test finding 03/08/2010 Urine Culture NO GROWTH 57 Urinalysis -RL 03/08/2010 Color -LA YELLOW 57 Appearance -LA CLEAR 57 Specific [place] -[place] 1.003 1.003-1.030 57 Leukocyte Esterase -LA TRACE (Neg) 57 Nitrite -LA NEGATIVE (Neg) 57 PH Urine -LA 8.0 High 5.0-7.5 57 Protein Urine-LA NEGATIVE (Neg) 57 Glucose Urine -LA NEGATIVE (Neg) 57 Ketone Urine -LA NEGATIVE (Neg) 57 Urobilinogen -LA 0.2 mg/dL 0-1.0 57 Bilirubin Urine -LA NEGATIVE (Neg) 57 Blood/HGB Urine-RL TRACE (Neg) 57, 58 Laboratory test finding 03/08/2010 Vaginitis Direct (SEE NOTE) 57, 59 Test(Affirm) -LA Urine Microscopic, Only 03/08/2010 Urine WBC -LA 3-5 /HPF (0-5) 57 -RL Urine RBC -LA 0-2 /HPF (0-2) 57 Epithelial Cells -LA 1+ /HPF 57 Bacteria -LA 1+ /HPF 57, 60 Laboratory test finding 04/25/2009 Urine Culture NO GROWTH Laboratory test finding 12/28/2008 Urine Culture NO GROWTH Basic (BMP) 12/17/2008 Sodium DELETED mmol/L 135-144 61 Potassium DELETED mmol/L 3.6-5.2 61 Chloride DELETED mmol/L 97-110 61 Carbon Dioxide DELETED mmol/L 23-33 61 Glucose DELETED mg/dL 70-105 61 BUN DELETED mg/dL 6-22 61 Creatinine DELETED mg/dL 0.5-1.3 61 BUN/CR DELETED Ratio 12.0-20.0 61 Anion Gap DELETED mmol/L 8-16 61 Calcium DELETED mg/dL 8.6-10.2 61 GFR Calculation DELETED mL/min 60-175 61, 62 GFR For DELETED mL/min 60-175 61, 63 Laboratory test finding 12/17/2008 Vitamin B12 570 pg/mL 180-914 61, 64 Comment SAMPLE CONTAMINA <SEE NOTE> 61, 65 Laboratory test finding 12/16/2008 Urine Culture NO GROWTH 66 CBC With Auto Diff 12/16/2008 WBC 7.0 K/ul 4.0-10.9 66 RBC 5.00 M/ul 4.20-5.40 66 Hemoglobin 14.9 GM/dl 12.5-16.0 66 Hematocrit 43.0 % 36.0-47.0 66 MCV 86.0 FL 80.0-97.0 66 MCH 29.8 pg 27.0-31.0 66 MCHC 34.6 g/dL 32.0-36.0 66 RDW 13.6 % 11.5-14.5 66 Platelet Count 198 K/ul 140-440 66 Neutrophils 64.4 % 50-70 66 Lymphocytes 29.3 % 20-44 66 Monocytes 4.1 % 2-9 66 Eosinophil 1.7 % 0-4 66 Basophil 0.5 % 0-2 66 Absolute Neutrophils 4.5 K/ul 2.05-7.63 66 Absolute Lymphocytes 2.1 K/ul 0.8-4.8 66 Absolute Monocytes 0.3 K/ul 0.1-1.0 66 Absolute Eosinophils 0.1 K/ul 0.1-0.5 66 Absolute Basophils 0.0 K/ul 0.0-0.3 66 Hematology Comment (Comm2) N/A 66 Laboratory test finding 10/06/2008 Cytology Fluid Specimen - (SEE NOTE) 67, 68 [place] Urine Culture NO GROWTH 67 Laboratory test finding 09/23/2008 Vitamin D, 25 Hydroxy 41 ng/mL 31-100 Basic (BMP) 09/23/2008 Sodium 138 mmol/L 135-144 Potassium 5.1 mmol/L 3.6-5.2 69 Chloride 103 mmol/L 97-110 Carbon Dioxide 29 mmol/L 23-33 Glucose 95 mg/dL 70-105 BUN 17 mg/dL 6-22 Creatinine 0.7 mg/dL 0.5-1.3 BUN/CR 24 Ratio High 12.0-20.0 Anion Gap 11 mmol/L 8-16 Calcium 10.0 mg/dL 8.6-10.2 GFR Calculation > 60 mL/min 70 GFR For > 60 mL/min 71 Lipid Panel 09/23/2008 Cholesterol 242 mg/dL High 50-199 Triglycerides 90 mg/dL 10-150 HDL 66 mg/dL 35-85 72 Chol/HDL Ratio 3.7 Ratio 73 VLDL 18 mg/dL LDL (Calc) 158 mg/dL High 20-129 74 Urinalysis -RL 09/23/2008 Color -LA YELLOW Appearance -LA CLEAR Specific [place] -[place] 1.023 1.003-1.030 Leukocyte Esterase -LA TRACE (Neg) Nitrite -LA NEGATIVE (Neg) PH Urine -LA 6.5 5.0-7.5 Protein Urine-LA NEGATIVE (Neg) Glucose Urine -LA NEGATIVE (Neg) Ketone Urine -LA NEGATIVE (Neg) Urobilinogen -LA 0.2 mg/dL 0-1.0 Bilirubin Urine -LA NEGATIVE (Neg) Blood/HGB Urine-RL 1+ (Neg) 75 Urine Microscopic, Only -RL 09/23/2008 Urine WBC -LA NONE SEEN /HPF (0-5 ) Urine RBC -LA * 3-5 /HPF (0-2) 76 Laboratory test finding 01/23/2008 Urine Culture <10,000 CFU/ML R <SEE 77 NOTE> Laboratory test finding 06/17/2007 Urine Culture NO GROWTH 78 Laboratory test finding 03/19/2007 Urine Culture NO GROWTH CBC With Auto Diff 08/28/2006 WBC 5.8 K/ul 4.0-10.9 RBC 4.85 M/ul 4.20-5.40 Hemoglobin 14.3 GM/dl 12.5-16.0 Hematocrit 41.3 % 36.0-47.0 MCV 85.0 FL 80.0-97.0 MCH 29.4 pg 27.0-31.0 MCHC 34.6 g/dL 32.0-36.0 RDW 12.1 % 11.5-14.5 Platelet Count 232 K/ul 140-440 Neutrophils 60.7 % 50-70 Lymphocytes 30.5 % 20-44 Monocytes 5.5 % 2-9 Eosinophil 2.4 % 0-4 Basophil 0.9 % 0-2 Absolute Neutrophils 3.5 K/ul 2.05-7.63 Absolute Lymphocytes 1.8 K/ul 0.8-4.8 Absolute Monocytes 0.3 K/ul 0.1-1.0 Absolute Eosinophils 0.1 K/ul 0.1-0.5 Absolute Basophils 0.1 K/ul 0.1-0.3 CMP 08/28/2006 Sodium 137 mmol/L 135-144 Potassium 4.3 mmol/L 3.6-5.2 Chloride 105 mmol/L 97-110 Carbon Dioxide 25 mmol/L 23-33 Glucose 95 mg/dL 70-105 BUN 13 mg/dL 6-22 Creatinine 0.9 mg/dL 0.5-1.3 BUN/CR 14 Ratio 12.0-20.0 Calcium 10.1 mg/dL 8.6-10.2 Total Protein 6.9 g/dL 5.8-7.8 Albumin 3.9 g/dL 3.5-4.8 Globulin 3.0 g/dL 2.0-3.5 A/G Ratio 1.3 Ratio 1.0-2.2 Total Bilirubin 0.7 mg/dL 0.3-1.2 Alkaline Phosphatase 83 U/L 24-140 Alt 29 U/L 4-45 Ast 24 U/L 12-40 Anion Gap 11 mmol/L 8-16 GFR White Male 92 GFR White Female 68 GFR Black Male 112 GFR Black Female 83 GFR Guidelines 0 79 Laboratory test finding 08/28/2006 Vitamin D, 25 Hydroxy 36 ng/mL 19-58 TSH 2.51 uIU/ml 0.50-6.00 PTH,Intact With 08/28/2006 PTH Intact-LA 7.1 pmol/L (0.7-5.1) 80 Calcium -RL Laboratory test 08/28/2006 Ionized Calcium - LA 5.12 mg/dL (4.64-5.28) 80, 81 finding Calcium 9.8 mg/dL (8.4-10.2) 80 Urinalysis -RL 06/21/2006 Color -LA YELLOW Appearance -LA CLEAR Specific [place] -LA 1.010 (1.003-1.030) Leukocyte Esterase -LA 1+ (Neg) Nitrite -LA NEGATIVE (Neg) PH Urine -LA 8 (5.0-7.5) Protein Urine-LA NEGATIVE (Neg) Glucose Urine -LA NEGATIVE (Neg) Ketone Urine -LA NEGATIVE (Neg) Urobilinogen -LA NORMAL (Norm) Bilirubin Urine -LA NEGATIVE (Neg) Blood/HGB Urine-RL 1+ (Neg) 82 Urine Microscopic, Only -RL 06/21/2006 Urine WBC -LA 3-5 /HPF (0-5) Urine RBC -LA 0-2 /HPF (0-2) Epithelial Cells -LA 2+ /HPF Bacteria -LA 1+ /HPF Laboratory test 05/27/2006 [place], Thinprep - SEE REFERENCE LA 83 finding LA <SEE NOTE> CBC With Auto Diff 05/27/2006 WBC 6.5 K/ul 4.0-10.9 84 RBC 4.78 M/ul 4.20-5.40 84 Hemoglobin 13.2 GM/dl 12.5-16.0 84 Hematocrit 41.9 % 36.0-47.0 84 MCV 87.7 FL 80.0-97.0 84 MCH 27.7 pg 27.0-31.0 84 MCHC 31.6 g/dL Low 32.0-36.0 84 RDW 13.0 % 11.5-14.5 84 Platelet Count 228 K/ul 140-440 84 Neutrophils 69.7 % 50-70 84 Lymphocytes 24.3 % 20-44 84 Monocytes 2.3 % 2-9 84 Eosinophil 3.1 % 0-4 84 Basophil 0.6 % 0-2 84 Absolute Neutrophils 4.6 K/ul 2.05-7.63 84 Absolute Lymphocytes 1.6 K/ul 0.8-4.8 84 Absolute Monocytes 0.1 K/ul 0.1-1.0 84 Absolute Eosinophils 0.2 K/ul 0.1-0.5 84 Absolute Basophils 0.0 K/ul Low 0.1-0.3 84 CMP 05/27/2006 Sodium 144 mmol/L 135-144 84 Potassium 5.4 mmol/L High 3.6-5.2 84, 85 Chloride 105 mmol/L 97-110 84 Carbon Dioxide 29 mmol/L 23-33 84 Glucose 86 mg/dL 70-105 84 BUN 10 mg/dL 6-22 84 Creatinine 0.9 mg/dL 0.5-1.3 84 BUN/CR 11 Ratio Low 12.0-20.0 84 Calcium 10.3 mg/dL High 8.6-10.2 84 Total Protein 7.0 g/dL 5.8-7.8 84 Albumin 4.1 g/dL 3.5-4.8 84 Globulin 2.9 g/dL 2.0-3.5 84 A/G Ratio 1.4 Ratio 1.0-2.2 84 Total Bilirubin 0.9 mg/dL 0.3-1.2 84 Alkaline Phosphatase 92 U/L 24-140 84 Alt 29 U/L 4-45 84 Ast 28 U/L 12-40 84 Anion Gap 15 mmol/L 8-16 84 GFR White Male 92 84 GFR White Female 68 84 GFR Black Male 112 84 GFR Black Female 83 84 GFR Guidelines 0 84, 86 Lipid Panel 05/27/2006 Cholesterol 252 mg/dL High 50-199 84 Triglycerides 169 mg/dL High 10-150 84 HDL 68 mg/dL 35-85 84 Chol/HDL Ratio 3.7 Ratio 84 VLDL 34 mg/dL 84 LDL (Calc) 150 mg/dL High 20-129 84 Laboratory test finding 05/27/2006 TSH 3.60 uIU/ml 0.50-6.00 84 Urinalysis - 05/22/2006 Color -LA YELLOW Appearance -LA CLEAR Specific [place] -LA 1.010 (1.003-1.030) Leukocyte Esterase -LA NEGATIVE (Neg) Nitrite -LA NEGATIVE (Neg) PH Urine -LA 7.0 (5.0-7.5) Protein Urine-LA NEGATIVE (Neg) Glucose Urine -LA NEGATIVE (Neg) Ketone Urine -LA NEGATIVE (Neg) Urobilinogen -LA NORMAL (Norm) Bilirubin Urine -LA NEGATIVE (Neg) Blood/HGB Urine-RL 2+ (Neg) Urine Microscopic, Only - 05/22/2006 Urine WBC -LA 0-2 /HPF (0-5) Urine RBC -LA * 6-10 /HPF (0-2) Epithelial Cells -LA 1+ /HPF Bacteria -LA 2+ /HPF Urinalysis -RL 01/11/2006 Color -LA YELLOW Appearance -LA CLEAR Specific [place] -LA 1.010 Leukocyte Esterase -LA TRACE Nitrite -LA NEGATIVE PH Urine -LA 7.0 Protein Urine-LA NEGATIVE Glucose Urine -LA NEGATIVE Ketone Urine -LA NEGATIVE Urobilinogen -LA NORMAL Bilirubin Urine -LA NEGATIVE Blood Urine -LA 1+ 87 Laboratory test finding 01/11/2006 Urine Culture NO GROWTH Yuriy Farmer Acute Antibody 07/11/2005 Ebv Ab Vca, IgM Negative AU 0-19 88 Panel-Centx Ebv Early Antigen Ab, IgG Positive Negative 89 Ebv Ab Vca, IgG 105 AU High 0-19 90 Ebv Nuclear Antigen Ab, IgG >200 AU 0-19 91 CBC 07/11/2005 WBC 6.1 K/ul 4.1-10.9 RBC 4.94 M/ul 4.20-6.30 Hemoglobin 14.2 GM/dl 12.5-15.0 Hematocrit 42.9 % 36.0-47.0 MCV 86.8 FL 80.0-97.0 MCH 28.7 pg 26.0-32.0 MCHC 33.1 g/dL 31.0-36.0 RDW 12.5 % 11.5-14.5 Platelet Count 231 K/ul 140-440 Neutrophils 60.5 % 50-70 Lymphocytes 30.5 % 20-44 Monocytes 6.1 % 2-9 Eosinophil 1.8 % 0-4 Basophil 1.1 % 0-2 Absolute Neutrophils 3.6 K/ul 2.05-7.63 Absolute Lymphocytes 1.9 K/ul 0.8-4.8 Absolute Monocytes 0.4 K/ul 0.1-1.0 Absolute Eosinophils 0.1 K/ul 0.1-0.5 Absolute Basophils 0.1 K/ul 0.1-0.3 Laboratory test finding 07/11/2005 Esr 9 MM/HR 0-20 TSH 2.66 uIU/ml 0.50-6.00 CMP 07/11/2005 Sodium 141 mmol/L 135-144 Potassium 4.7 mmol/L 3.6-5.2 Chloride 103 mmol/L 97-110 Carbon Dioxide 32 mmol/L 22-32 Glucose 79 mg/dL 70-105 BUN 14 mg/dL 6-22 Creatinine 0.9 mg/dL 0.5-1.3 BUN/CR 16 Ratio 12.0-20.0 Calcium 10.2 mg/dL 8.6-10.2 92 Total Protein 7.0 g/dL 5.8-7.8 Albumin 4.0 g/dL 3.5-4.8 Globulin 3.0 g/dL 2.0-3.5 A/G Ratio 1.3 Ratio 1.0-2.2 Total Bilirubin 0.6 mg/dL 0.3-1.2 Ast 22 U/L 12-40 Alt 30 U/L 4-45 Alkaline Phosphatase 90 U/L 24-108 Anion Gap 11 mmol/L 8-16 CBC 03/07/2005 WBC 7.4 K/ul 4.1-10.9 RBC 5.62 M/ul 4.20-6.30 Hemoglobin 16.8 GM/dl High 12.5-15.0 Hematocrit 50.3 % 37.0-51.0 MCV 89.5 FL 80.0-97.0 MCH 29.9 pg 26.0-32.0 MCHC 33.4 g/dL 31.0-36.0 RDW 13.0 % 11.5-14.5 Platelet Count 260 K/ul 140-440 Neutrophils 53.0 % 50-70 Lymphocytes 36.4 % 20-44 Monocytes 4.4 % 2-9 Eosinophil 5.4 % High 0-4 Basophil 0.8 % 0-2 Absolute Neutrophils 3.9 K/ul 2.05-7.63 Absolute Lymphocytes 2.7 K/ul 0.8-4.8 Absolute Monocytes 0.3 K/ul 0.1-1.0 Absolute Eosinophils 0.4 K/ul 0.1-0.5 Absolute Basophils 0.1 K/ul 0.1-0.3 Laboratory test finding 03/07/2005 TSH 2.15 uIU/ml 0.50-6.00 Lipid Panel 03/07/2005 Cholesterol 270 mg/dL High 50-199 Triglycerides 167 mg/dL 30-200 HDL 72 mg/dL 35-85 Chol/HDL Ratio 3.8 Ratio VLDL 33 mg/dL LDL (Calc) 165 mg/dL High 20-129 CBC 10/04/2004 WBC 7.2 K/ul 4.1-10.9 RBC 5.06 M/ul 4.20-6.30 Hemoglobin 14.6 GM/dl 12.5-15.0 Hematocrit 44.1 % 37.0-51.0 MCV 87.1 FL 80.0-97.0 MCH 28.9 pg 26.0-32.0 MCHC 33.2 g/dL 31.0-36.0 RDW 13.0 % 11.5-14.5 Platelet Count 208 K/ul 140-440 Neutrophils 64.2 % 50-70 Lymphocytes 28.7 % 20-44 Monocytes 4.5 % 2-9 Eosinophil 1.8 % 0-4 Basophil 0.8 % 0-2 Absolute Neutrophils 4.6 K/ul 2.05-7.63 Absolute Lymphocytes 2.1 K/ul 0.8-4.8 Absolute Monocytes 0.3 K/ul 0.1-1.0 Absolute Eosinophils 0.1 K/ul 0.1-0.5 Absolute Basophils 0.1 K/ul 0.1-0.3 Laboratory test finding 10/04/2004 TSH 2.81 uIU/ml 0.50-6.00 CMP 10/04/2004 Sodium 141 mmol/L 135-145 Potassium 4.1 mmol/L 3.4-5.3 Chloride 106 mmol/L 98-111 Carbon Dioxide 28 mmol/L 22-33 Glucose 86 mg/dL 70-105 BUN 13 mg/dL 6-26 Creatinine 0.7 mg/dL 0.5-1.5 BUN/CR 19 Ratio 12.0-20.0 Calcium 9.2 mg/dL 8.6-10.3 Total Protein 7.4 g/dL 6.2-8.3 Albumin 4.1 g/dL 3.5-5.0 Globulin 3.3 g/dL 2.7-4.3 A/G Ratio 1.2 Ratio 1.0-2.2 Total Bilirubin 0.8 mg/dL 0.1-1.3 Ast 21 U/L 8-42 Alt 25 U/L 3-42 Alkaline Phosphatase 84 U/L 24-108 Anion Gap 11 mmol/L 10-20 Laboratory test finding 10/04/2004 Magnesium 2.1 mg/dL 1.5-2.7 Basic (BMP) 03/08/2004 Sodium 139 mmol/L 135-145 Potassium 3.7 mmol/L 3.4-5.3 Chloride 103 mmol/L 98-111 Carbon Dioxide 29 mmol/L 22-33 Glucose 123 mg/dL High 70-105 BUN 14 mg/dL 6-26 Creatinine 0.7 mg/dL 0.5-1.5 BUN/CR 20 Ratio 12.0-20.0 Anion Gap 11 mmol/L 10-20 Calcium 9.2 mg/dL 8.6-10.3 Laboratory test finding 03/08/2004 Magnesium 2.0 mg/dL 1.5-2.7 PT And Inr 02/16/2004 Prothrombin Time 18.9 SEC High 10.5-12.2 Inr 2.86 2.0-3.0 93 PT And Inr 02/14/2004 Prothrombin Time 29.0 SEC High 10.5-12.2 94 Inr 6.87 High 2.0-3.0 95 PT And Inr 02/07/2004 Prothrombin Time 11.0 SEC 10.5-12.2 Inr 0.95 Low 2.0-3.0 96 Lipid Panel 02/07/2004 Cholesterol 222 mg/dL High 50-199 Triglycerides 89 mg/dL 30-200 HDL 64 mg/dL 35-85 Chol/HDL Ratio 3.5 Ratio VLDL 18 mg/dL LDL (Calc) 140 mg/dL High 20-129 CBC 02/03/2004 WBC 6.3 K/ul 4.1-10.9 RBC 4.99 M/ul 4.20-6.30 Hemoglobin 14.4 GM/dl 12.5-15.0 Hematocrit 43.7 % 37.0-51.0 MCV 87.7 FL 80.0-97.0 MCH 28.8 pg 26.0-32.0 MCHC 32.9 g/dL 31.0-36.0 RDW 12.4 % 11.5-14.5 Platelet Count 194 K/ul 140-440 Neutrophils 57.7 % 50-70 Lymphocytes 33.2 % 20-44 Monocytes 5.9 % 2-9 Eosinophil 2.6 % 0-4 Basophil 0.6 % 0-2 Absolute Neutrophils 3.6 K/ul 2.05-7.63 Absolute Lymphocytes 2.1 K/ul 0.8-4.8 Absolute Monocytes 0.4 K/ul 0.1-1.0 Absolute Eosinophils 0.2 K/ul 0.1-0.5 Absolute Basophils 0.0 K/ul Low 0.1-0.3 CMP 02/03/2004 Sodium 142 mmol/L 135-145 Potassium 4.9 mmol/L 3.4-5.3 Chloride 107 mmol/L 98-111 Carbon Dioxide 28 mmol/L 22-33 Glucose 87 mg/dL 70-105 BUN 10 mg/dL 6-26 Creatinine 0.7 mg/dL 0.5-1.5 BUN/CR 14 Ratio 12.0-20.0 Calcium 10.3 mg/dL 8.6-10.3 Total Protein 7.5 g/dL 6.2-8.3 Albumin 4.2 g/dL 3.5-5.0 Globulin 3.3 g/dL 2.7-4.3 A/G Ratio 1.3 Ratio 1.0-2.2 Total Bilirubin 1.2 mg/dL 0.1-1.3 Ast 25 U/L 8-42 Alt 27 U/L 3-42 Alkaline Phosphatase 82 U/L 24-108 Anion Gap 12 mmol/L 10-20 PT And Inr 01/25/2004 Prothrombin Time 13.8 SEC High 10.5-12.2 Inr 1.50 Low 2.0-3.0 97 PT And Inr 01/17/2004 Prothrombin Time 12.2 SEC 10.5-12.2 Inr 1.17 Low 2.0-3.0 98 PT And Inr 01/05/2004 Prothrombin Time 11.3 SEC 10.5-12.2 Inr 1.00 Low 2.0-3.0 99 PT And Inr 01/03/2004 Prothrombin Time 11.3 SEC 10.5-12.2 Inr 1.00 Low 2.0-3.0 100 Laboratory test finding 10/05/2003 Rapid Plasma Reagin NON-REACTIVE (RPR) Lipid Panel 10/04/2003 Cholesterol 239 mg/dL High 50-199 Triglycerides 208 mg/dL High 30-200 HDL 65 mg/dL 35-85 Chol/HDL Ratio 3.7 Ratio VLDL 42 mg/dL LDL (Calc) 132 mg/dL High 20-129 CMP 10/04/2003 Sodium 138 mmol/L 135-145 Potassium 4.3 mmol/L 3.4-5.3 Chloride 104 mmol/L 98-111 Carbon Dioxide 26 mmol/L 22-33 Glucose 62 mg/dL Low 70-105 BUN 16 mg/dL 6-26 Creatinine 0.6 mg/dL 0.5-1.5 BUN/CR 27 Ratio High 12.0-20.0 Calcium 9.6 mg/dL 8.6-10.3 Total Protein 7.3 g/dL 6.2-8.3 Albumin 4.2 g/dL 3.5-5.0 Globulin 3.1 g/dL 2.7-4.3 A/G Ratio 1.4 Ratio 1.0-2.2 Total Bilirubin 0.8 mg/dL 0.1-1.3 Ast 25 U/L 8-42 Alt 26 U/L 3-42 Alkaline Phosphatase 76 U/L 24-108 Anion Gap 12 mmol/L 10-20 Laboratory test finding 10/04/2003 Esr 6 MM/HR 0-20 Hemoglobin A1c 5.3 % 4.1-6.5 Vitamin B12 133 pg/mL Low 230-1050 Folate Folate result gr <SEE NOTE> ng/ml 3.0-16.0 101 Laboratory test finding 09/28/2003 TSH 2.39 uIU/ml 0.50-6.00 CBC 09/28/2003 WBC 8.9 K/ul 4.1-10.9 RBC 5.22 M/ul 4.20-6.30 Hemoglobin 15.1 GM/dl High 12.5-15.0 Hematocrit 45.5 % 37.0-51.0 MCV 87.2 FL 80.0-97.0 MCH 29.0 pg 26.0-32.0 MCHC 33.2 g/dL 31.0-36.0 RDW 12.4 % 11.5-14.5 Platelet Count 247 K/ul 140-440 Neutrophils 62.8 % 50-70 Lymphocytes 28.8 % 20-44 Monocytes 5.4 % 2-9 Eosinophil 2.2 % 0-4 Basophil 0.8 % 0-2 Absolute Neutrophils 5.5 K/ul 2.05-7.63 Absolute Lymphocytes 2.6 K/ul 0.8-4.8 Absolute Monocytes 0.5 K/ul 0.1-1.0 Absolute Eosinophils 0.2 K/ul 0.1-0.5 Absolute Basophils 0.1 K/ul 0.1-0.3 1 Updated reference range on new analyzer 2 Updated reference range on new analyzer 3 Concerning GFR Guidelines for Americans: Normal function or mild renal disease, if clinically at risk: >/=60 mL/min Moderately decreased: 30-59 Severely decreased: 15-29 Renal failure: <15 4 Concerning GFR Guidelines: Normal function or mild renal disease, if clinically at risk: >/=60 mL/min Moderately decreased: 30-59 Severely decreased: 15-29 Renal failure: <15 Glomerular Filtration Rate (GFR) is estimated based on the MDRD equation, which assumes a steady state for creatinine as recommended by the National Kidney Disease Education Program in conjunction with the National Institutes of Health and the National Kidney Foundation. Clinical conditions in which it may be necessary to measure GFR by using clearance methods include extremes of age and body size, severe malnutrition or obesity, diseases of skeletal muscle, paraplegia or quadriplegia, vegetarian diet, rapidly changing kidney function, and calculation of the dose of potentially toxic drugs that are excreted by the kidneys. 5 Updated Reference Range 6 TROPONIN LEVELS TWO TIMES THE UPPER LIMIT OF NORMAL ARE MORE PREDICTIVE OF MYOCARDIAL INJURY THAN LESSER ELEVATIONS. ([facility] [place] 361:9, 2009) Unless otherwise specified, testing performed by [facility] [place] [facility] [address] [place] [id number] 7 This sample is drawn by:MAGDA. 8 Updated reference range on new analyzer 9 Updated reference range on new analyzer 10 Concerning GFR Guidelines for Americans: Normal function or mild renal disease, if clinically at risk: >/=60 mL/min Moderately decreased: 30-59 Severely decreased: 15-29 Renal failure: <15 11 Concerning GFR Guidelines: Normal function or mild renal disease, if clinically at risk: >/=60 mL/min Moderately decreased: 30-59 Severely decreased: 15-29 Renal failure: <15 Glomerular Filtration Rate (GFR) is estimated based on the MDRD equation, which assumes a steady state for creatinine as recommended by the National Kidney Disease Education Program in conjunction with the National Institutes of Health and the National Kidney Foundation. Clinical conditions in which it may be necessary to measure GFR by using clearance methods include extremes of age and body size, severe malnutrition or obesity, diseases of skeletal muscle, paraplegia or quadriplegia, vegetarian diet, rapidly changing kidney function, and calculation of the dose of potentially toxic drugs that are excreted by the kidneys. 12 Updated reference range on new analyzer 13 Per NCEP ATP III Guidelines: Results lower than 40 mg/dL are suggestive of increased risk for coronary artery disease. Results > or=to 60 mg/dL are considered a negative risk factor. 14 Per NCEP ATP III Guidelines: Normal Population <130 Patients with medical conditions: CHD/DM Optimal: <100 Borderline high: 130-159 High: 160-189 Very high: >189 15 5.3 Specimen Slightly Hemolyzed 16 Concerning GFR Guidelines for Americans: Normal function or mild renal disease, if clinically at risk: >/=60 mL/min Moderately decreased: 30-59 Severely decreased: 15-29 Renal failure: <15 17 Concerning GFR Guidelines: Normal function or mild renal disease, if clinically at risk: >/=60 mL/min Moderately decreased: 30-59 Severely decreased: 15-29 Renal failure: <15 Glomerular Filtration Rate (GFR) is estimated based on the MDRD equation, which assumes a steady state for creatinine as recommended by the National Kidney Disease Education Program in conjunction with the National Institutes of Health and the National Kidney Foundation. Clinical conditions in which it may be necessary to measure GFR by using clearance methods include extremes of age and body size, severe malnutrition or obesity, diseases of skeletal muscle, paraplegia or quadriplegia, vegetarian diet, rapidly changing kidney function, and calculation of the dose of potentially toxic drugs that are excreted by the kidneys. 18 Microbiology results SOURCE MIDU FINAL RESULT No growth 19 This sample is drawn by:BR Fastin hours This sample is drawn by:BR Fastin hours Fastin hours Fastin hours 20 Concerning GFR Guidelines for Americans: Normal function or mild renal disease, if clinically at risk: >/=60 mL/min Moderately decreased: 30-59 Severely decreased: 15-29 Renal failure: <15 21 Concerning GFR Guidelines: Normal function or mild renal disease, if clinically at risk: >/=60 mL/min Moderately decreased: 30-59 Severely decreased: 15-29 Renal failure: <15 Glomerular Filtration Rate (GFR) is estimated based on the MDRD equation, which assumes a steady state for creatinine as recommended by the National Kidney Disease Education Program in conjunction with the National Institutes of Health and the National Kidney Foundation. Clinical conditions in which it may be necessary to measure GFR by using clearance methods include extremes of age and body size, severe malnutrition or obesity, diseases of skeletal muscle, paraplegia or quadriplegia, vegetarian diet, rapidly changing kidney function, and calculation of the dose of potentially toxic drugs that are excreted by the kidneys. 22 This sample is drawn by:BR Fastin hours This sample is drawn by:BR Fastin hours 23 TROPONIN LEVELS TWO TIMES THE UPPER LIMIT OF NORMAL ARE MORE PREDICTIVE OF MYOCARDIAL INJURY THAN LESSER ELEVATIONS. ([facility] [place] 361:9, 2009) Unless otherwise specified, [place] [address] 24 Unless otherwise specified, testing performed [place] [address] 25 This sample is drawn by:CT 26 Per NCEP ATP III Guidelines: Results lower than 40 mg/dL are suggestive of increased risk for coronary artery disease. Results > or=to 60 mg/dL are considered a negative risk factor. 27 Per NCEP ATP III Guidelines: Normal Population <130 Patients with medical conditions: CHD/DM Optimal: <100 Borderline high: 130-159 High: 160-189 Very high: >189 28 Concerning GFR Guidelines for Americans: Normal function or mild renal disease, if clinically at risk: >/=60 mL/min Moderately decreased: 30-59 Severely decreased: 15-29 Renal failure: <15 29 Concerning GFR Guidelines: Normal function or mild renal disease, if clinically at risk: >/=60 mL/min Moderately decreased: 30-59 Severely decreased: 15-29 Renal failure: <15 Glomerular Filtration Rate (GFR) is estimated based on the MDRD equation, which assumes a steady state for creatinine as recommended by the National Kidney Disease Education Program in conjunction with the National Institutes of Health and the National Kidney Foundation. Clinical conditions in which it may be necessary to measure GFR by using clearance methods include extremes of age and body size, severe malnutrition or obesity, diseases of skeletal muscle, paraplegia or quadriplegia, vegetarian diet, rapidly changing kidney function, and calculation of the dose of potentially toxic drugs that are excreted by the kidneys. 30 This sample is drawn by:RAMIRO 31 Concerning GFR Guidelines for Americans: Normal function or mild renal disease, if clinically at risk: >/=60 mL/min Moderately decreased: 30-59 Severely decreased: 15-29 Renal failure: <15 32 Concerning GFR Guidelines: Normal function or mild renal disease, if clinically at risk: >/=60 mL/min Moderately decreased: 30-59 Severely decreased: 15-29 Renal failure: <15 Glomerular Filtration Rate (GFR) is estimated based on the MDRD equation, which assumes a steady state for creatinine as recommended by the National Kidney Disease Education Program in conjunction with the National Institutes of Health and the National Kidney Foundation. Clinical conditions in which it may be necessary to measure GFR by using clearance methods include extremes of age and body size, severe malnutrition or obesity, diseases of skeletal muscle, paraplegia or quadriplegia, vegetarian diet, rapidly changing kidney function, and calculation of the dose of potentially toxic drugs that are excreted by the kidneys. 33 May indicate a current or previous infection. 34 May indicate a current or previous infection. Unless otherwise specified, testing performed by [facility] [address] [address] [facility]. [address] [place] [id number] MISCELLANEOUS CYTOLOGY REPORT Accession Number: [id number] Source of Specimen(s): A: Urine, Voided Clinical Diagnosis and History: Gross Description: Urine, Voided: 30 cc clear yellow fluid. Final Diagnosis: Specimen Adequacy Satisfactory Final Diagnosis NEGATIVE FOR MALIGNANCY Erythrocytes and scattered bacteria noted. Reported: 12/19/2011 Electronically Signed Out By Anam Coburn M.D. Biochemist: Rhianna JAVIER([facility]) [facility] Path[facility], P.CLeila estelle [address] [facility]. [address] [place] [address] GYNECOLOGIC CYTOLOGY REPORT Accession Number: [id number] Source of Specimen(s): A: [facility] Vaginal/ Cervical/ Endocervical Pap Smear - One Vial Clinical Diagnosis and History: Date of Last Menstrual Period: None Provided Other Clinical Conditions: REFLEX TO DIGENE HPV ASSAY IF RESULTS OF THIS PAP ARE ASCUS Specimen Adequacy Satisfactory for evaluation Presence of endocervical/transformation zone cannot be assessed due to atrophic changes. It may be difficult to distinguish squamous metaplastic cells from parabasal type cells in specimens showing atrophy due to a variety of hormonal changes including menopause, post changes and progestational agents. General Categorization Negative for intraepithelial lesion or malignancy Interpretation NEGATIVE FOR INTRAEPITHELIAL LESION OR MALIGNANCY Acute inflammatory cells Reported: 12/20/2011 Electronically Signed Out By Yesi JAVIER([facility]) [facility] da 37 This sample is drawn by:MAGDA. 38 SEE REFERENCE LAB REPORT 39 Unless otherwise specified, testing performed by [facility] [place] [address] [address] 40 Concerning GFR Guidelines for Americans: Normal function or mild renal disease, if clinically at risk: >/=60 mL/min Moderately decreased: 30-59 Severely decreased: 15-29 Renal failure: <15 41 Concerning GFR Guidelines: Normal function or mild renal disease, if clinically at risk: >/=60 mL/min Moderately decreased: 30-59 Severely decreased: 15-29 Renal failure: <15 Glomerular Filtration Rate (GFR) is estimated based on the MDRD equation, which assumes a steady state for creatinine as recommended by the National Kidney Disease Education Program in conjunction with the National Institutes of Health and the National Kidney Foundation. Clinical conditions in which it may be necessary to measure GFR by using clearance methods include extremes of age and body size, severe malnutrition or obesity, diseases of skeletal muscle, paraplegia or quadriplegia, vegetarian diet, rapidly changing kidney function, and calculation of the dose of potentially toxic drugs that are excreted by the kidneys. 42 Microbiology results SOURCE URINE FINAL RESULT No growth 43 SEE REFERENCE LAB REPORT 44 Microbiology results SOURCE URINE FINAL RESULT No growth 45 This sample is drawn by:GRACIE/JUVENTINO 46 Unless otherwise specified, testing performed by Laboratory [facility] [facility] [place] [place] [address] 47 Reference range: 0.00 to 0.40 Performed by [employer], [address] [place] [id number] [email or web address], Gladys Holbrook MD, Lab. Director Unless otherwise specified, testing performed by [employer] [facility] [place] [address] 48 This sample is drawn by:RAMIRO 49 Concerning GFR Guidelines: Normal function or mild renal disease, if clinically at risk: >/=60 mL/min Moderately decreased: 30-59 Severely decreased: 15-29 Renal failure: <15 Glomerular Filtration Rate (GFR) is estimated based on the MDRD equation, which assumes a steady state for creatinine as recommended by the National Kidney Disease Education Program in conjunction with the National Institutes of Health and the National Kidney Foundation. Clinical conditions in which it may be necessary to measure GFR by using clearance methods include extremes of age and body size, severe malnutrition or obesity, diseases of skeletal muscle, paraplegia or quadriplegia, vegetarian diet, rapidly changing kidney function, and calculation of the dose of potentially toxic drugs that are excreted by the kidneys. 50 Concerning GFR Guidelines for Americans: Normal function or mild renal disease, if clinically at risk: >/=60 mL/min Moderately decreased: 30-59 Severely decreased: 15-29 Renal failure: <15 51 Concerning GFR GUIDELINES: Normal Function or Mild Renal Disease, if clinically at risk: >/=60mL/min Moderately decreased: 30-59 Severely decreased: 15-29 Renal Failure: <15 Glomerular Filtration Rate (GFR) is estimated based on the MDRD equation, which assumes a steady state for creatinine as recommended by the National Kidney Disease Education Program in conjunction with the National Institutes of Health and the National Kidney Foundation. Clinical conditions in which it may be necessary to measure GFR by using clearance methods include extremes of age and body size, severe malnutrition or obesity, diseases of skeletal muscle, paraplegia or quadriplegia, vegetarian diet, rapidly changing kidney function, and calculation of the dose of potentially toxic drugs that are excreted by the kidneys. 52 Concerning GFR GUIDELINES: Normal Function or Mild Renal Disease, if clinically at risk: >/=60mL/min Moderately decreased: 30-59 Severely decreased: 15-29 Renal Failure: <15 53 The difference between the most recent result of 242 and the current result of 183 exceeds the absolute delta value of 50 as defined for this test. 54 PER NCEP ATP III GUIDELINES: RESULTS LOWER THAN 40 MG/DL ARE SUGGESTIVE OF INCREASED RISK FOR CORONARY ARTERY DISEASE. RESULTS > OR=TO 60 MG/DL ARE CONSIDERED A NEGATIVE RISK FACTOR. 55 INTERPRETATION OF CHOL-HDL RATIO CHD RISK FEMALE MALE VERY HIGH >8.3 >14.3 HIGH 5.6 - 8.3 6.7 - 14.3 AVERAGE 3.7 - 5.6 4.0 - 6.7 BELOW AVERAGE 2.5 - 3.7 2.7 - 4.0 PROTECTED <2.5 <2.7 56 PER NCEP ATP III GUIDELINES: OPTIMAL: <100 NEAR OPTIMAL: 100 - 129 BORDERLINE HIGH: 130 - 159 HIGH: 160 - 189 VERY HIGH: >189 57 This sample is drawn by:ROBBIE 58 Unless otherwise specified, testing performed by [employer] [facility] [place] [address] 59 SPECIMEN DESCRIPTION VAGINAL SPECIMEN RESULT NEGATIVE FOR TRICHOMONAS VAGINALIS NEGATIVE FOR GARDNERELLA VAGINALIS NEGATIVE FOR ANTHONY SPECIES REPORT STATUS FINAL 03/08/2010 Unless otherwise specified, testing performed by [employer] [facility] [place] [address] 60 Unless otherwise specified, testing performed by [employer] [facility] [place] [address] 61 LAB DRAW KSLPN Test deleted. Reason: CONTAMINATED SPECIMEN LAB DRAW KSLPN LAB DRAW KSLPN 62 Concerning GFR GUIDELINES: Normal Function or Mild Renal Disease, if clinically at risk: >/=60mL/min Moderately decreased: 30-59 Severely decreased: 15-29 Renal Failure: <15 Glomerular Filtration Rate (GFR) is estimated based on the MDRD equation, which assumes a steady state for creatinine as recommended by the National Kidney Disease Education Program in conjunction with the National Institutes of Health and the National Kidney Foundation. Clinical conditions in which it may be necessary to measure GFR by using clearance methods include extremes of age and body size, severe malnutrition or obesity, diseases of skeletal muscle, paraplegia or quadriplegia, vegetarian diet, rapidly changing kidney function, and calculation of the dose of potentially toxic drugs that are excreted by the kidneys. 63 Concerning GFR GUIDELINES: Normal Function or Mild Renal Disease, if clinically at risk: >/=60mL/min Moderately decreased: 30-59 Severely decreased: 15-29 Renal Failure: <15 64 SPECIMEN CONTAMINATED WITH POTASSIUM EDTA. THIS TEST PREVIOUSLY HAD A RESULT OF '570' WHICH WAS RELEASED 12/17/08 07: 05PM. IT WAS SUBSEQUENTLY UNRELEASED 12/22/08 10:47AM BY RDW. Result changed from 570 to 65 SAMPLE CONTAMINATED WITH POTASSIUM EDTA. UNABLE TO ANALYZE CHEMISTRY TESTS 66 This sample is drawn by:ARLEEN HALL 67 This sample is drawn by:MAGDA 68 [employer] [facility] [employer] [facility]. [facility] [place] [address] MISCELLANEOUS CYTOLOGY REPORT Accession Number: [id number] Source of Specimen(s): A: Urine, Voided Clinical Diagnosis and History: 595.0 Gross Description: Urine, Voided: 40 cc cloudy yellow fluid. Final Diagnosis: Specimen Adequacy Satisfactory Final Diagnosis NEGATIVE FOR MALIGNANCY Squamous cells and urothelial cells with scattered neutrophils and red blood cells. Reported: 10/07/2008 Electronically Signed Out By Neptali Morocho MD Biochemist: Kia Knapp SCT(ASCP)([facility]) [facility] Pathology, P[facility] ICD9 Code: 595.0 Unless otherwise specified, testing performed by [facility] [place] [address] [place] [address] 69 The difference between the most recent result of 4.3 and the current result of 5.1 exceeds the absolute delta value of 0.5 as defined for this test. 70 Concerning GFR GUIDELINES: Normal Function or Mild Renal Disease, if clinically at risk: >/=60mL/min Moderately decreased: 30-59 Severely decreased: 15-29 Renal Failure: <15 Glomerular Filtration Rate (GFR) is estimated based on the MDRD equation, which assumes a steady state for creatinine as recommended by the National Kidney Disease Education Program in conjunction with the National Institutes of Health and the National Kidney Foundation. Clinical conditions in which it may be necessary to measure GFR by using clearance methods include extremes of age and body size, severe malnutrition or obesity, diseases of skeletal muscle, paraplegia or quadriplegia, vegetarian diet, rapidly changing kidney function, and calculation of the dose of potentially toxic drugs that are excreted by the kidneys. 71 Concerning GFR GUIDELINES: Normal Function or Mild Renal Disease, if clinically at risk: >/=60mL/min Moderately decreased: 30-59 Severely decreased: 15-29 Renal Failure: <15 72 PER NCEP ATP III GUIDELINES: RESULTS LOWER THAN 40 MG/DL ARE SUGGESTIVE OF INCREASED RISK FOR CORONARY ARTERY DISEASE. RESULTS > OR=TO 60 MG/DL ARE CONSIDERED A NEGATIVE RISK FACTOR. 73 INTERPRETATION OF CHOL-HDL RATIO CHD RISK FEMALE MALE VERY HIGH >8.3 >14.3 HIGH 5.6 - 8.3 6.7 - 14.3 AVERAGE 3.7 - 5.6 4.0 - 6.7 BELOW AVERAGE 2.5 - 3.7 2.7 - 4.0 PROTECTED <2.5 <2.7 74 PER NCEP ATP III GUIDELINES: OPTIMAL: <100 NEAR OPTIMAL: 100 - 129 BORDERLINE HIGH: 130 - 159 HIGH: 160 - 189 VERY HIGH: >189 75 Unless otherwise specified, testing performed by [employer] [facility] [place] [address] 76 Unless otherwise specified, testing performed by [employer] [facility] [place] [place] [address] 77 <10,000 CFU/ML REPRESENTING URETHRAL INO 78 EX GOLD 79 Normal Function or Mild Renal Disease, if clinically at risk: >/=60 mL/min Moderately decreased: 30-59 Severely decreased: 15-29 Renal Failure: <15 Glomerular Filtration Rate (GFR) is estimated based on the MDRD equation, which assumes a steady state for creatinine as recommended by the National Kidney Disease Education Program in conjunction with the National Institutes of Health and the National Kidney Foundation. Clinical conditions in which it may be necessary to measure GFR by using clearance methods include extremes of age and body size, severe malnutrition or obesity, diseases of skeletal muscle, paraplegia or quadriplegia, vegetarian diet, rapidly changing kidney function, and calculation of the dose of potentially toxic drugs that are excreted by the kidneys. 80 DUP TEST Test deleted. Reason: DUP TEST DUP TEST 81 IONIZED CALCIUM NORMALIZED TO PH 7.40 AND 37 DEGREES C. 82 Test deleted. Reason: NO SPECIMEN REC'V 83 SEE REFERENCE LAB REPORT 84 FASTING 85 NO VISIBLE HEMOLYSIS 86 Normal Function or Mild Renal Disease, if clinically at risk: >/=60 mL/min Moderately decreased: 30-59 Severely decreased: 15-29 Renal Failure: <15 Glomerular Filtration Rate (GFR) is estimated based on the MDRD equation, which assumes a steady state for creatinine as recommended by the National Kidney Disease Education Program in conjunction with the National Institutes of Health and the National Kidney Foundation. Clinical conditions in which it may be necessary to measure GFR by using clearance methods include extremes of age and body size, severe malnutrition or obesity, diseases of skeletal muscle, paraplegia or quadriplegia, vegetarian diet, rapidly changing kidney function, and calculation of the dose of potentially toxic drugs that are excreted by the kidneys. 87 MICROSCOPIC: WBC: 0-2 RBC: 0-2 EPITH: 1+ 88 Negative <20 Positive >19 89 Positive results suggest recent or chronic-active infection. Anti-EA becomes undetectable weeks to months after onset. 90 Negative <20 Positive >19 91 Negative <20 Positive >19 92 RESULT CONFIRMED 93 IT MUST BE STRESSED THAT THE INR IS SPECIFICALLY INTENDED FOR ASSESSING PATIENTS STABILIZED ON LONG-TERM ANTICOAGULANT THERAPY. THE RECOMMENDED THERAPEUTIC RANGE FOR: MOST PATIENTS ON COUMADIN INR: 2.0 - 3.0 PROPHYLAXIS/TREATMENT OF VENOUS THROMBOSIS PROPHYLAXIS/TREATMENT OF PULMONARY EMBOLIS PROSTHETIC HEART VALVES INR: 2.5 - 3.5 RECURRENT SYSTEMIC EMBOLISM 94 CONFIRMED, CALLED, AND FAXED. 95 IT MUST BE STRESSED THAT THE INR IS SPECIFICALLY INTENDED FOR ASSESSING PATIENTS STABILIZED ON LONG-TERM ANTICOAGULANT THERAPY. THE RECOMMENDED THERAPEUTIC RANGE FOR: MOST PATIENTS ON COUMADIN INR: 2.0 - 3.0 PROPHYLAXIS/TREATMENT OF VENOUS THROMBOSIS PROPHYLAXIS/TREATMENT OF PULMONARY EMBOLIS PROSTHETIC HEART VALVES INR: 2.5 - 3.5 RECURRENT SYSTEMIC EMBOLISM 96 IT MUST BE STRESSED THAT THE INR IS SPECIFICALLY INTENDED FOR ASSESSING PATIENTS STABILIZED ON LONG-TERM ANTICOAGULANT THERAPY. THE RECOMMENDED THERAPEUTIC RANGE FOR: MOST PATIENTS ON COUMADIN INR: 2.0 - 3.0 PROPHYLAXIS/TREATMENT OF VENOUS THROMBOSIS PROPHYLAXIS/TREATMENT OF PULMONARY EMBOLIS PROSTHETIC HEART VALVES INR: 2.5 - 3.5 RECURRENT SYSTEMIC EMBOLISM 97 IT MUST BE STRESSED THAT THE INR IS SPECIFICALLY INTENDED FOR ASSESSING PATIENTS STABILIZED ON LONG-TERM ANTICOAGULANT THERAPY. THE RECOMMENDED THERAPEUTIC RANGE FOR: MOST PATIENTS ON COUMADIN INR: 2.0 - 3.0 PROPHYLAXIS/TREATMENT OF VENOUS THROMBOSIS PROPHYLAXIS/TREATMENT OF PULMONARY EMBOLIS PROSTHETIC HEART VALVES INR: 2.5 - 3.5 RECURRENT SYSTEMIC EMBOLISM 98 IT MUST BE STRESSED THAT THE INR IS SPECIFICALLY INTENDED FOR ASSESSING PATIENTS STABILIZED ON LONG-TERM ANTICOAGULANT THERAPY. THE RECOMMENDED THERAPEUTIC RANGE FOR: MOST PATIENTS ON COUMADIN INR: 2.0 - 3.0 PROPHYLAXIS/TREATMENT OF VENOUS THROMBOSIS PROPHYLAXIS/TREATMENT OF PULMONARY EMBOLIS PROSTHETIC HEART VALVES INR: 2.5 - 3.5 RECURRENT SYSTEMIC EMBOLISM 99 IT MUST BE STRESSED THAT THE INR IS SPECIFICALLY INTENDED FOR ASSESSING PATIENTS STABILIZED ON LONG-TERM ANTICOAGULANT THERAPY. THE RECOMMENDED THERAPEUTIC RANGE FOR: MOST PATIENTS ON COUMADIN INR: 2.0 - 3.0 PROPHYLAXIS/TREATMENT OF VENOUS THROMBOSIS PROPHYLAXIS/TREATMENT OF PULMONARY EMBOLIS PROSTHETIC HEART VALVES INR: 2.5 - 3.5 RECURRENT SYSTEMIC EMBOLISM 100 IT MUST BE STRESSED THAT THE INR IS SPECIFICALLY INTENDED FOR ASSESSING PATIENTS STABILIZED ON LONG-TERM ANTICOAGULANT THERAPY. THE RECOMMENDED THERAPEUTIC RANGE FOR: MOST PATIENTS ON COUMADIN INR: 2.0 - 3.0 PROPHYLAXIS/TREATMENT OF VENOUS THROMBOSIS PROPHYLAXIS/TREATMENT OF PULMONARY EMBOLIS PROSTHETIC HEART VALVES INR: 2.5 - 3.5 RECURRENT SYSTEMIC EMBOLISM 101 Folate result greater than 23.0 ng/ml Procedures Date CPT Code Description Status Comment 05/27/2018 05356 Electrocardiogram Complete Completed 05/13/2018 56563 Electrocardiogram Complete Completed 02/07/2018 Colonoscopy Completed Document: 02/07/18 - Colonoscopy 01/05/2014 Bone Mineral Density Test Completed 12/29/2013 74301 Electrocardiogram Complete Completed 12/29/2013 54942 Electrocardiogram Complete Completed 12/18/2011 04628 Electrocardiogram Complete Completed 11/26/2011 Colonoscopy Completed 11/29/2010 15525 Measure Blood Oxygen Level Completed Single Determination 06/26/2010 Colonoscopy Completed 12/17/2008 32825 Charge Back Completed 09/16/2008 64041 Electrocardiogram Complete Completed 01/23/2008 43979 Admin Of Inj Completed (Therapeutic,Prophylactic Or Diagnostic Subq Or Intr 12/03/2007 87699 Admin Of Inj Completed (Therapeutic,Prophylactic Or Diagnostic Subq Or Intr 06/12/2007 84788 Admin Of Inj Completed (Therapeutic,Prophylactic Or Diagnostic Subq Or Intr 03/26/2007 64252 Electrocardiogram Complete Completed 02/05/2007 56124 Admin Of Inj Completed (Therapeutic,Prophylactic Or Diagnostic Subq Or Intr 07/17/2006 14825 Admin Of Inj Completed (Therapeutic,Prophylactic Or Diagnostic Subq Or Intr 06/21/2006 42693 Admin Of Inj Completed (Therapeutic,Prophylactic Or Diagnostic Subq Or Intr 05/09/2006 87200 Admin Of Inj Completed (Therapeutic,Prophylactic Or Diagnostic Subq Or Intr 09/12/2005 03591 Admin Of Inj Completed (Therapeutic,Prophylactic Or Diagnostic Subq Or Intr 04/04/2005 66139 Deleted Code Use 04772 Completed 12/26/2004 11853 Electrocardiogram Complete Completed 12/06/2004 32270 Electrocardiogram Complete Completed 10/04/2004 11097 Deleted Code Use 16714 Completed 03/08/2004 10380 Electrocardiogram Complete Completed 02/03/2004 45374 Deleted Code Use 03545 Completed 01/25/2004 01809 Deleted Code Use 51008 Completed 01/25/2004 58804 Electrocardiogram Complete Completed 01/20/2004 21654 Remove Foreign Body Completed Subcutaneous Simple 01/03/2004 96868 Electrocardiogram Complete Completed 01/03/2004 45957 Deleted Code Use 36387 Completed 01/03/2004 30627 Remove Foreign Body Completed Subcutaneous Simple 12/27/2003 52466 Deleted Code Use 50452 Completed 12/13/2003 40708 Deleted Code Use 47426 Completed 12/06/2003 27794 Deleted Code Use 49128 Completed 11/26/2003 99367 Duplex Scan Extracranial Completed Arteries, Complete Bilateral Study Encounters Type Date Location Provider CPT E/M Dx Office Visit 05/13/2018 11:20[place] [address] R42 F07.81 R94.31 E83.42 T78.40xD T78.40xD Office Visit 01/08/2018 11:15[place] [address] M54.2 F07.81 Z12.11 R26.89 Office Visit 02/22/2017 10:45a Marlee Fournier MD G0439 Z00.01 D01.3 Z12.11 Z12.31 J45.20 R19.7 E55.9 K21.9 H81.10 F07.81 Z11.59 S60.945A N95.2 Office Visit 01/23/2017 2:40[place] [address] R05 R07.9 Office Visit 01/10/2016 4:00p [place] [address] R87.619 D01.3 S06.0x0D Z12.31 Office Visit 06/08/2015 1:20[place] [address] S06.0x0D Office Visit 01/12/2015 12:40p Crystal Thacker RN [facility] 84145 786.50 786.09 493.00 790.6 Office Visit 10/07/2014 1:40p Crystal Thacker RN [facility] 59617 466.0 Office Visit 04/05/2014 11:40[place] [address] 230.5 Office Visit 02/10/2014 10:00[place] [address] 230.5 780.93 Office Visit 12/29/2013 1:00p Amira Moore MD G0439 230.5 296.32 V81.2 268.9 427.31 V70.0 V79.0 723.1 493.00 477.0 780.93 V77.1 Office Visit 07/27/2013 4:15p [place] [address] 723.1 724.2 Office Visit 02/05/2013 10:20a Crystal Thacker RN [facility] 05533 723.1 916.0 Office Visit 10/07/2012 3:20p Crystal Thacker RN [facility] 44575 373.12 Office Visit 08/12/2012 12:00p Crystal Thacker RN [facility] 40594 780.79 241.0 627.3 959.5 Office Visit 08/12/2012 12:00p Crystal Thacker RN [facility] 50347 780.79 723.1 723.1 241.0 627.3 Office Visit 02/19/2012 1:15p [place] [address] 296.32 154.2 241.0 278.02 723.1 Office Visit 12/18/2011 2:00p [place] [address] V72.31 599.70 296.32 708.2 V76.10 V82.81 V04.81 154.2 V06.1 V72.81 627.3 368.9 723.1 241.0 Office Visit 09/21/2011 1:30[place] [address] 296.32 780.4 995.3 780.93 281.1 V76.10 153.9 Office Visit 06/07/2011 2:00p Crystal Thacker RN 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 90831 V41.1 995.3 272.0 Office Visit 11/29/2010 1:15p Yadira Hoskins, N.P. 08002 466.0 382.00 Office Visit 03/08/2010 11:15[place] [address] 595.0 723.1 616.10 783.1 Office Visit 01/16/2010 2:15p Yadira Hoskins, N.P. 63323 780.4 787.03 Office Visit 04/25/2009 11:15a Yadira Hoskins, N.P. 85391 595.0 Office Visit 12/30/2008 1:50[place] [address] 786.09 Office Visit 12/28/2008 3:50[place] [address] 599.0 Office Visit 12/16/2008 2:10p [place] [address] 079.89 Office Visit 09/16/2008 2:10[place] [address] 281.0 296.32 599.0 Office Visit 01/23/2008 2:00[place] [address] 281.0 719.41 569.0 595.0 296.32 733.09 327.23 Office Visit 12/03/2007 2:00[place] [address] 787.01 719.41 786.51 Office Visit 09/12/2007 10:00a Yadira Hoskins, N.P. 60511 726.10 Office Visit 06/17/2007 1:00p Yadira Hoskins, N.P. 50279 599.0 Office Visit 03/26/2007 11:00[place] [address] 296.32 724.2 281.0 525.9 786.51 Office Visit 02/05/2007 11:30[place] [address] 595.0 296.32 327.23 836.2 724.2 281.0 Office Visit 08/28/2006 1:00[place] [address] 296.32 847.0 564.00 275.42 847.2 477.0 Office Visit 07/17/2006 10:30[place] [address] 817.0 847.0 780.57 211.3 300.02 281.0 V04.81 Office Visit 06/21/2006 11:30a Yadira Hoskins, N.P. 32164 788.1 281.0 Office Visit 05/27/2006 9:30a Yadira Hoskins, N.P. 78761 V72.31 569.3 Office Visit 05/22/2006 11:30[place] [address] 300.02 427.31 724.2 723.1 599.7 477.8 Office Visit 12/26/2005 11:00[place] [address] 724.2 723.1 Office Visit 11/19/2005 2:00p Yadira Hoskins, N.P. 83285 465.9 008.8 Office Visit 11/07/2005 11:15[place] [address] 846.0 Office Visit 10/10/2005 11:00[place] [address] 780.4 723.1 296.32 Office Visit 09/12/2005 8:00[place] [address] 009.0 296.32 266.2 281.0 Office Visit 07/11/2005 11:45[place] [address] 296.32 780.79 281.0 723.1 266.2 Office Visit 05/16/2005 9:45[place] [address] 296.32 719.46 Office Visit 03/07/2005 11:30[place] [address] 272.0 296.22 783.1 Office Visit 12/26/2004 11:45a Yadira Hoskins, N.P. 96076 300.02 788.1 786.50 Office Visit 12/06/2004 11:15[place] [address] 280.9 786.51 Office Visit 10/04/2004 1:00[place] [address] 723.1 281.0 780.79 784.0 826.0 Office Visit 09/07/2004 1:15p Yadira Hoskins, N.P. 41628 724.2 296.32 599.0 Office Visit 07/10/2004 1:00[place] [address] 784.0 719.47 Office Visit 05/22/2004 11:00[place] [address] 780.4 380.10 783.1 Office Visit 05/11/2004 10:15a Yadira Hoskins, N.P. 95599 723.1 296.32 780.4 Office Visit 03/08/2004 12:00p Yadira Hoskins, N.P. 35598 786.51 296.32 780.79 Office Visit 02/14/2004 9:00[place] [address] 300.02 V58.61 296.32 310.2 Office Visit 02/08/2004 10:15a Yadira Hoskins, N.P. 93435 V58.61 300.02 296.32 780.4 Office Visit 02/07/2004 11:00[place] [address] V58.61 300.02 427.31 780.4 787.01 Office Visit 02/03/2004 1:15p Yadira Hoskins, N.P. 75018 300.02 296.32 780.4 787.02 Office Visit 01/20/2004 12:15p Yadira Hoskins, N.P. 45237 892.0 Office Visit 01/03/2004 11:15[place] [address] V58.61 427.31 786.51 919.6 285.9 Office Visit 12/06/2003 10:45[place] [address] 281.0 784.0 726.73 780.93 Office Visit 10/07/2003 4:00p Yadira Hoskins, N.P. 57403 477.0 296.32 784.0 372.05 Office Visit 10/04/2003 11:00[place] [address] 493.10 298.9 310.2 V18.0 Office Visit 09/28/2003 1:30p Yadira Hoskins, N.P. 79639 780.79 784.0 780.93 298.9 Office Visit 05/24/2003 12:45p Yadira Hoskins, N.P. 79409 599.0 Office Visit 02/19/2003 9:15a Yadira Hoskins, N.P. 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.20 Mild intermittent asthma, vejfpbyahjuheR35.2 Postmenopausal atrophic rysehlaioW38.9 Vitamin D deficiency, emtidflaahvH17.31 Encntr screen mammogram for malignant neoplasm of breastNew Xrays:Mammogram, Screening, WoywolehhR55.820 Encounter for screening for osteoporosisNew Xrays: Bone Density Study (Dexa)Z13.89 Encounter for screening for other cawtiurjI80.9 Hematuria, dabkisydwxaF70.52 AkwfwuopaaeywD05.00 Pure hypercholesterolemia, nwzaqdxtmgsR67.1 Generalized anxiety disorderNew Medication:Escitalopram Oxalate 5 mgFollow up:move 06/12 SB to later in the mos SBZ68.30 Body mass index (BMI) 30.0-30.9, adult
--- OUTSIDE RECORDS SUMMARY | 2018-06-04 08:58 | XMS REPORT ---
:1950 External Reference #:[id number] Author Organization [facility] Address [address] [address] Phone [phone] Care Team Providers Name Role Phone Marlee Rhoades MD Care Team Information In Store Marketer Unavailable Payers Type Date Identification Numbers Payment Provider Subscriber Commercial Effective: Policy Number: [id number] Today's Options Daxa Perez 2015 PayID: [id number] [address] [address] [place] [address] Workers Compensation Effective: Policy Number: Adams Mittal 2012 [id number] Insurance Chris Onset: 2012 [address] [place] [address] Problems Date Description Provider Status Onset: 12/18/2011 [...] Inactive: 12/30/2013 Onset: 01/11/2014 Atrial fibrillation Amira Chavis MD Inactive Inactive: 01/11/2014 Social History Type Date Description Comments Marital Status Legal Status: for 28 years Lives With patient lives with spouse and children Pets 1 dog Pets 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 Cigarette Use Never Smoked Cigarettes Allergies, Adverse Reactions, Alerts Date Description Reaction Status Severity Comments 05/16/2005 Sulfa active Medications Medication Date Status Form Strength Qnty SIG Indications Ordering Provider Epinephrine 05/02 Active Solution 0.3mg/0.3 2unit as needed Auto-Inject ML s Marlee Barry MD Cyclobenzaprine 01/08 Active Tablets 10mg 30tab take 08/27 M54.2 , s to 1 Marlee Barry MD every night at bedtime Melatonin ER 02/22 Active Tablets ER 3mg 1 po qhs F07.81 Macaparamjit prn Marlee Barry MD Multivitamin 01/23 Active Tablets 30tab 1 by mouth Verona, s every day Marlee Barry MD Vitamin D High 01/23 Active Capsules 1000Unit 3 by mouth E55.9 [place] , every day Marlee Barry MD Holloway 3 01/23 Active Capsules 1000mg 1 capsule paramjit per oral Marlee daily MD Asha Multimineral 01/23 Active Tablets 1 tablet [place], per oral Marlee daily MD Asha Ventolin HFA 12/16 Active Aerosol 108(90Bas 1unit inhale two J45.20 [place] e) s puffs by Marlee mcg/Act mouth four MD Asha times a day Ondansetron HCL 03/01 Hx Tablets 4mg 30tab 1 by mouth [place] s three Marlee - times alexi Barry MD 01/08 day needed n/v Magnesium Oxide 01/23 Hx Capsules 500mg 1 capsule Veorna, (Antacid) per oral Marlee - daily MD Asha 02/22 Omeprazole 01/[address] 20mg 90cap 1 by mouth K21.9 Verona s every day Marlee Barry MD 01/08 Epipen 2-Sandor 06/28 Hx Solution 0.3mg/0.3 2unit as needed Maca Auto-Inject ML s Marlee - MD sAha 05/02 Physical And 07/04 Hx to Partha evaluate Amira Therapy - and tx MD Elva 01/09 dx: concussion Zofran 05/19 Hx Tablets 4mg 30tab 1 tab by Partha s mouth q6hr Amira - as needed MD Elva 01/09 Meclizine HCL 05/16 Hx Tablets 12.5mg 45tab 1-2 tab by R11.0 [place], s mouth Marlee - three MD Asha 02/22 times day as needed dizziness and nausea Cipro 11/12 Hx Tablets 250mg 6tabs 1 po bid x Milton 3 d Crystal - IRAJ Mariee MS 01/12 C PROGRAMMER Asmanex 10/07 Hx Aerosol 220mcg/In 1unit Inhale One 493.00 Eulalio Agarwal h s puff By Crystal Metered Doses - Mouth C, RN MS 01/09 Twice A Day Azithromycin 10/07 Hx Tablets 250mg 6tabs 2 tabs day 466.0 Stefano one and 1 Crystal - tab daily Kodi RN MS 01/12 till gone Fluticasone 12/29 Hx Suspension 50mcg/Act 1unit 1 spray 477.0 Stefano, Propionate s b/l Crystal - nostrils C, RN MS 01/09 twice a day, then may wean to 1 spray everyday, until sx resolution Triamcinolone 12/29 Hx Inhaler 55mcg/Act 1unit 2 sprays 477.0 Partha, Acetonide s b/l Amira - nostril MD Elva 10/07 qday prn Asmanex 60 12/16 Hx Aerosol 220mcg/In 1unit Inhale One 493.00 Partha, Metered Doses /2013 h s puff By Amira - Mouth MD Elva 10/07 Twice A Day Partial 02/05 Hx not able Verona, to manage Marlee Continues In Her - her MD Asha Neck Since 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 PT Is Healty 02/05 Hx Stefano, Enough For Crystal Dental Appt. - IRAJ Mariee MS 07/27 Physical Therapy 10/[address] eval Verona and treat Marlee - lbp MD Asha 07/27 Dicloxacillin 10/08 Hx Capsules 250mg 42cap Q 6 HRS 373.12 Milton, Sodium s After Crystal - Eating X 7 IRAJ Mariee MS 02/05 Days Cephalexin 10/07 Hx Capsules 500mg 21cap 1 tab tid 373.12 Stefano s for 7 days Crystal Mariee RN MS 10/08 Erythromycin 10/07 Hx Ointment 1Tube apply 373.12 Stefano Opthalmic every4-6hr Crystal - s as IRAJ Mariee MS 02/05 directed to the eye Citalopram 08/27 Hx Tablets 20mg 30tab 1 /2 qd x Stefano, Hydrobromide s 6 days Crystal - then jonas Mariee RN MS 02/05 po qd Escitalopram 08/16 Hx Tablets 10mg 30tab 1 po qd Stefano, s Crystal Mariee RN MS 08/27 Estrace 08/12 Hx Cream 0.1mg/GM 1Tube 1 GM 1-2 627.3 Partha Times Amira - weekly MD Elva 01/09 Naproxen 05/28 Hx Tablets 500mg 60tab 1 po bid 723.1 Stefano s prn Crystal Mariee RN MS 10/07 Escitalopram 03/03 Hx Tablets 10mg 30tab 1/2 po qd Macadam, Oxalate s X 4 D Then Marlee - 1 PO qd MD Asha 03/03 Citalopram 03/03 Hx Tablets 20mg 30tab 1/2 po qd [place]adam, Hydrobromide s x 4 d then Marlee - 1 qd MD Asha 03/27 Promethegan 03/03 Hx Suppository 12.5mg 10uni 1 PO bid Macaparamjit ts prn Marlee Barry MD 08/12 Dentist Note 02/25 Hx PT is not Stefano known to Crystal Mariee, RN MS 02/05 major C PROGRAMMER structural cardiac probs that would req abx Cyclobenzaprine 02/18 Hx Tablets 10mg 30tab tid prn M54.2 Partha s Amira Stevenson MD 01/23 Premarin 12/17 Hx Cream 0.625mg/G 42.50 qhs x 2 627.3 Verona M 0gm wks then Marlee Barry MD 08/12 2x/ Cipro 11/25 Hx Tablets 250mg 6tabs 1 po bid x 3 d Marlee Barry MD 12/17 Asmanex 30 10/02 Hx Aerosol 220mcg/In 1unit One Milton, Metered Doses h s Inhalation Crystal - tanner Mariee RN MS 12/16 C PROGRAMMER Fexofenadine HCL 10/02 Hx Tablets 180mg 90tab 1 po qd 477.0 marcie Stevenson MD 02/22 Periactin 10/02 Hx [place] Marlee Barry MD 08/12 Effexor XR 09/25 Hx Caps ER 24HR 37.5mg take one capsule by Marlee Barry MD 09/25 with 150mg capsule Effexor XR 09/25 Hx Caps ER 24HR 37.5mg 30cap Take One Lakshmi s Capsule By Marlee Barry MD 03/03 Vitamin B12 09/21 Hx Tablets ER 1000mcg 1 po qd 281.1 Marlee Barry MD 02/22 Effexor XR 08/31 Hx Caps ER 24HR 75mg 30cap 1 po qd Verona s Marlee Barry MD 09/25 Effexor 05/03 Hx Tablets 75mg 30tab 1 po qd s Yadira, - N.P. 08/31 Epipen 02/21 Hx Device 0.3mg/0.3 1unit use as ML s directed Yadira, - N.P. 06/28 Erythromycin 02/13 Hx Caps 250mg 40cap 1 po qid x Amazonia s 10 days Yadira, - N.P. 09/21 Zithromax Z-Sandor 12/04 Hx Tablets 250mg 1tabs as directed Yadira, - N.P. 02/13 Proventil HFA 11/29 Hx Aerosol 108(90Bas 1unit 2 puffs Milton, e) mcg/ac s qid Crystal Mariee RN MS 12/16 C PROGRAMMER Augmentin 11/29 Hx Tablets 500-125mg 20tab 1 po q 12 s hours x 10 Yadira, - days N.P. 12/04 Carisoprodol 11/29 Hx Tablets 350mg 30tab 1 po tid 723.1 s Yadira, - N.P. 12/17 Silvadene 04/03 Hx Cream 1% 50gm apply to wound bid Yadira, - N.P. 04/03 Cipro 03/08 Hx Tablets 250mg 4tabs 1 po bid x 595.0 paramjit 3 d Marlee Barry MD 11/29 Carisoprodol 03/08 Hx Tablets 350mg 30tab take 08/27 723.1 paramjit s to 1 qhs Marlee Barry MD 11/29 Zofran Odt 01/16 Hx Tablets 4mg 12tab 1-2 tabs Dispers s tid prn Yadira - nausea N.P. 03/08 Meclizine HCL 01/16 Hx Tablets 25mg 30tab 1 po tid Amazon[place] s Yadira, - N.P. 12/17 Proair HFA 08/04 Hx Aerosol 108(90Bas 1unit 2 puffs Eppolito, e) mcg/ac s qid prn Vladimir Waddell MD 11/29 Estrace 05/09 Hx Cream 0.1mg/GM 42.50 apply 0gm 0.1mg Yadira, - vaginally N.P. 12/17 qd x week the 2-3 times a week Diflucan 04/25 Hx Tablets 100mg 5tabs 1 tabs qd Eulalio x 5 days Yadira - N.P. 03/08 Dental 03/30 Hx pt's prior Macadam, use of Marlee - fosamax dali Barry MD 04/09 not contraindi cation to proceed Ciprofloxacin 12/28 Hx Tablets 250mg 14tab 1 po bid Eulalio, s x 7days Yadira, - N.P. 05/09 Azithromycin 12/16 Hx Tablets 250mg 6tabs 2 po qd Eppolito, day 1, Anam Stone - then 1 po 12/28 qd x days Effexor XR 10/29 Hx Caps ER 24HR 37.5mg 60cap Take 1 s Capsule By Yadira, - Mouth Two N.P. 05/03 Times Day Effexor XR 10/28 Hx Caps ER 24HR 75mg 30cap 1 po qd Eppolito, s Vladimir Waddell MD 10/29 Effexor 10/26 Hx Tablets 37.5mg 90tab 1 po bid Eppolito, s Vladimir Waddell MD 10/28 Macrobid 09/22 Hx Capsules 100mg 14cap 1 po bid Macadam s as dir Marlee Barry MD 12/16 Effexor XR 09/16 Hx Caps ER 24HR 75mg 30cap 1 po qd Eppolito s Vladimir Waddell MD 10/26 Cipro 09/16 Hx Tablets 250mg 10tab 1po bid Eppolito, s 5days Vladimir Waddell MD 12/16 Flonase 07/01 Hx Suspension 50mcg/Act 1Bott 2 p Bilat Amazonia le qd Yadira, - N.P. 12/17 Phenergan [...] Physical Therapy 12/[address] eval 719.41 Macaparamjit and tx Asha Keller MD 09/16 neck Ciprofloxacin 12/02 Hx Tablets 500mg 14tab 1 PO bid 787.01 Trabout, HCL s Vladimir Valerio MD 01/22 Tigan 12/02 Hx Suppository 200mg 12uni 1 pr ac 787.01 Trabout, ts tid prn Vladimir Valerio nausea/vom 01/22 it Phenergan 11/10 Hx Tablets 12.5mg 10tab 1-2 PO tid Macadam s prn Nausea Marlee Barry MD 12/02 Ibuprofen 09/12 Hx Tablets 800mg 60tab 1 po qid Amazonia, s with food Yadira, - N.P. 12/02 Ciprofloxacin 06/17 Hx Tablets 500mg 10tab 1 PO bid X Eulalio, s 5 days Mashelle, - N.P. 08/11 Amoxicillin 03/26 Hx Tablets 500mg 21tab 1 PO tid 525.9 [place]ona s Marlee Barry MD 06/11 Cipro 02/05 Hx Tablets 250mg 14tab 1 PO bid 595.0 [place] s Marlee Barry MD 06/11 Xanax 02/05 Hx Tablets 0.25mg 20tab one 599.0 Verona s half-two Marlee - po tid prn MD Asha 09/16 Physical Therapy 02/05 Hx eval and 724.2 Verona treat l Marlee - knee, l-S MD Asha 06/11 spine Lexapro 08/28 Hx Tablets 10mg 28tab 1 PO qd 599.0 Ver[place] s Marlee Barry MD 09/12 Isis 08/28 Hx Tablets 180mg 30tab 1 po qd 477.0 Macadam s prn Marlee Barry MD 09/16 Effexor XR 07/17 Hx Capsules 37.5mg 30cap 1 po qd Macadam s Marlee Barry MD 09/16 Cipro 06/21 Hx Tablets 500mg 20tab 1 po bid x Amazonia, s 10 days Mashelle, - N.P. 08/28 Ibuprofen 05/22 Hx Tablets 800mg 90tab One PO 724.2 Macadam s Q8HRS With Marlee - Food meredith Barry MD 09/12 Singulair 05/22 Hx 10mg 30uni 1 po qd 477.8 Macadam ts Marlee Barry MD 12/16 Ecasa 05/22 Hx 325mg 1 PO qd 427.31 paramjit Marlee Barry MD 12/16 Wellbutrin SR 03/26 Hx Tablets 150mg 60tab 1 po bid Macadam s Marlee Barry MD 05/22 Macrobid 03/20 Hx Capsules 100mg 14cap 1 po bid Macadam s as dir Marlee Barry MD 05/22 Cipro 01/11 Hx Tablets 250mg 6tabs 1 po bid Macadam, Marlee Barry MD 05/22 Soma 11/07 Hx Tablets 350mg 30tab 1/2-1 PO 846.0 Verona s tid prn Marlee Barry MD 09/12 Hydrocodone & 11/07 Hx Tablets 5mg;500 30tab 1-2 po q6h 846.0 Macaparamjit, Acetaminophen /2006 mg s prn Marlee Barry MD 09/12 Physical Therapy 11/07 Hx eval and 846.0 Macadam treat Marlee - lbp/jared Barry MD 07/22 alg Darvocet N100 10/31 Hx 40uni 1 po qid Macaparamjit ts meredith Barry MD 05/22 Fosamax 10/10 Hx Tablets 70mg 12tab 1 po qweek Eulalio s on empty Mashelle, - stomach as N.P. 01/22 Effexor 10/10 Hx Tablets 37.5mg 30tab 1 po qd Macadam s Marlee Barry MD 07/17 Meclizine 10/10 Hx Tablets 25mg 30tab 1/2 To 1 780.4 Verona s PO tid prn Marlee Barry MD 09/12 Gym Note 10/10 Hx please 780.4 paramjit allow PT Marlee Barry MD 10/11 free trial at the gym now being premedicat ed for vertigo condition Nortriptiline 10/10 Hx 10mg 60uni 1-2 PO QHS 723.1 ts Marlee Barry MD 09/12 Phenergan 09/12 Hx Tablets 12.5mg 7tabs 1-2 po tid [place]ona prn nausea Marlee Barry MD 10/10 Vicodin 05/25 Hx Tablets 5mg;500 40tab 1-2 po qid [place]ona, mg s prn Marlee Barry MD 10/10 Effexor XR 03/07 Hx Capsules 75mg 90cap 1 po qd Macaparamjit, s Marlee Barry MD 09/12 Effexor XR 03/07 Hx Capsules 37.5mg 90cap 1 po qd Macaparamjit, s with 75 mg Marlee Baryr MD 09/12 Wellbutrin XL 03/07 Hx Tablets 300mg 30tab 1 po qd Macaparamjit, s Marlee Barry MD 09/12 Wellbutrin XL 03/07 Hx Tablets 150mg 14tab 1 po qd x [place]ona, s 14d Marlee Barry MD 03/21 Effexor XR 12/25 Hx Capsules 150mg 90cap 1 po qd [place], s Yadira, - N.P. 03/07 Effexor XR 10/04 Hx Capsules 150mg 30cap 1 po qam Verona s Marlee Barry MD 12/25 Medications Administered in Office Medication Date Status Form Strength Qnty SIG Indications Ordering Provider B-12 Injection Administered Injection Macadam, 008 Marlee Barry MD Tigan Im Up To Administered Injection Trabout, 200 MG 008 MD Teodoro Phenergan(Prom Administered Injection Trabout, ethazine 008 Teodoro, Hci)Up To 50 MD MG B-12 Injection Administered Injection Trabout, 007 MD Teodoro B-12 Injection Administered Injection Nurses 007 Schedule [place] B-12 Injection Administered Injection Macadam, 007 Marlee Barry MD B-12 Injection Administered Injection Nurses 007 Schedule [place] B-12 Injection Administered Injection Macadam, 007 Marlee Barry MD B-12 Injection Administered Injection [place], 006 Marlee Barry MD B-12 Injection Administered Injection Amazonia, 006 Mashelle, N.P. B-12 Injection Administered Injection Stefano, 006 Crystal Mariee RN MS C PROGRAMMER B-12 Injection Administered Injection [place]adam, 006 Marlee Barry MD B-12 Injection Administered Injection [place], 005 Marlee Barry MD B-12 Injection Administered Injection [place], 005 MD Lida Vazquez-12 Injection Administered Injection [place], 005 Marlee Barry MD Phenergan(Prom Administered Injection Amazonia, ethazine 004 Skyele, Hci)Up To 50 N.P. MG B-12 Injection Administered Injection Eulalio, 004 Mashelle, N.P. B-12 Injection Administered Injection Macadam, 004 Marlee Barry MD B-12 Injection Administered Injection [place], 004 Marlee Barry MD B-12 Injection Administered Injection Amazonia, 004 Mashelle, N.P. B-12 Injection Administered Injection Macadam, 004 Marlee Barry MD Immunizations CPT Code Status Date Vaccine Lot # [id number] Given 02/22/2017 Prevnar 13 Pneumococal Conjugate Vaccine 47887 Given 12/18/2011 Pneumococcal 23 Immunization Adult Or Immunosuppressed Patient 77241 Given 12/18/2011 Tdap (Adacel) Ages 7 And Above Only 13018 Given 07/17/2006 Afluria Or Fluvirin Flu Vac Intramuscular [id number] 95034 Given 06/13/2005 Afluria Or Fluvirin Flu Vac Intramuscular 31878 Given 06/13/2005 Afluria Or Fluvirin Flu Vac Intramuscular [id number] Vital Signs Date Vital Result Comment 05/13/2018 Body Temperature 98.0 F Heart Rate [...] Test Date Test Result H/L Range Note Comprehensive Met Panel-[facility]CMG 05/13/2018 Sodium 141 mmol/L 135-146 1 Potassium [...] (0.00-0.10) 6 Order 01/08/2018 Physical Therapy <pending> CBC With Auto Diff 02/22/2017 WBC 3.9 [...] 7 Abs Basophils 0.0 K/uL 0.0-0.3 7 Lipid 02/22/2017 Cholesterol 230 mg/dL High 50-199 7 Triglycerides 157 mg/dL 30-200 7 HDL 59 mg/dL 35-85 7, 8 Chol/ HDL Ratio 3.9 ratio 3.7-5.6 7 VLDL 31 mg/dL High 2-29 7 LDL (Calc) 140 mg/dL High 20-99 7, 9 Comprehensive Met Panel-FCMG 02/22/2017 Sodium 142 mmol/L 135-146 7, 10 Potassium 4.8 mmol/L 3.5-5.2 7 Chloride# 106 mmol/L 97-110 7, 11 Carbon Dioxide 29 mmol/L 24-34 7 Glucose [...] 8-42 7 Jacinta Egfr >60 >60 7, 12 Non Jacinta Egfr >60 >60 7, 13 Anion Gap 12 mmol/L 7-16 7, 14 Laboratory test finding 02/22/2017 TSH 1.00 uIU/mL 0.35-4.94 7 Hepatitis C Virus Antibody NONREACTIVE Nonreactive 7 CBC With Auto Diff 05/16/2015 WBC [...] Abs Basophils 0.0 K/uL 0.0-0.3 Comprehensive Metabolic ([facility]) 05/16/2015 Sodium 138 mmol/L 134-142 Potassium 5.3 [...] Culture Microbiology res <SEE 18 finding NOTE> Laboratory test 01/12/2015 Troponin I <0.06 ng/mL (0.00-0.1 19, 20 finding 0) B Natriuretic Pep 65 pg/mL (0-100) 19, 21 Laboratory test finding 01/12/2015 Magnesium 2.0 mg/dL 1.5-2.7 22 Comprehensive Metabolic (CMP) 01/12/2015 Sodium 139 mmol/L 134-142 22 Potassium 4.5 mmol/L 3.5-5.2 22 Chloride 104 mmol/L 97-109 22 Carbon Dioxide 29 mmol/L 24-34 22 Glucose 75 mg/dL 70-105 22 BUN 17 mg/dL 6-26 22 Creatinine 0.8 mg/dL 0.5-1.4 22 Calcium 9.7 mg/dL 8.5-10.2 22 Total Protein 6.8 g/dL 6.0-8.0 22 Albumin 4.2 g/dL 3.6-4.9 22 Globulin 2.6 g/dL 2.0-3.5 22 A/G Ratio 1.6 Ratio 1.0-2.2 22 Total Bilirubin 0.5 mg/dL 0.1-1.3 22 Alkaline Phosphatase 76 U/L 24-140 22 Alt 25 U/L 3-42 22 Ast 19 U/L 8-42 22 Anion Gap 11 mmol/L 6-14 22 Jacinta Egfr >60 >60 22, 23 Non Jacinta Egfr >60 >60 22, 24 CBC With Auto Diff 01/12/2015 WBC 3.6 K/uL Low 4.1-11.0 22 RBC 4.70 M/uL 4.00-5.40 22 Hemoglobin 13.8 gm/dL 12.0-16.0 22 Hematocrit 42.4 % 36.0-47.0 22 MCV 90.3 fL 80.0-97.0 22 MCH 29.5 pg 27.0-32.0 22 MCHC 32.7 g/dL 32.0-36.0 22 RDW 14.1 % 11.5-14.5 22 PLT Count 158 K/ul 140-400 22 Neutrophil 72.2 % 35.0-75.0 22 Lymphocyte 15.6 % Low 16.0-52.0 22 Monocyte 7.0 % 2.0-10.0 22 Eosinophil 4.1 % 0.0-5.0 22 Basophil 1.1 % 0.0-4.0 22 Abs Neutrophils 2.6 K/uL 2.1-8.0 22 Abs Lymphocytes 0.6 K/uL Low 0.8-5.5 22 Abmon 0.3 K/uL 0.1-1.0 22 Abs Eosinophils 0.1 K/uL 0.0-0.5 22 Abs Basophils 0.0 K/uL 0.0-0.3 22 CBC With Auto Diff 12/29/2013 WBC 6.8 [...] 25 Abs Basophils 0.1 K/uL 0.0-0.3 25 Comprehensive Metabolic (CMP) 12/29/2013 Sodium 139 [...] 6-14 25 Jacinta Egfr >60 >60 25, 26 Non Jacinta Egfr >60 >60 25, 27 Laboratory test finding 12/29/2013 TSH 1.70 uIU/mL 0.34-5.60 25 Lipid 12/29/2013 Cholesterol 229 mg/dL High 50-199 25 Triglycerides 134 mg/dL 30-200 25 HDL 73 mg/dL 35-85 25, 28 Chol/ HDL Ratio 3.1 ratio Low 3.7-5.6 25 VLDL 27 mg/dL 2-29 25 LDL (Calc) 129 mg/dL High 20-99 25, 29 Laboratory test finding 12/29/2013 Vitamin B12 >1500 pg/mL High 180-914 25 Vit D,25 Hydroxy 43 ng/mL 31-100 25 Magnesium 2.1 mg/dL 1.5-2.7 25 CBC With Auto Diff 08/12/2012 WBC 6.7 [...] 30 Abs Basophils 0.1 K/uL 0.0-0.3 30 Iron Panel 08/12/2012 Iron, Total 118 g/dL [...] Ag Igg @ POSITIVE (Neg) 30, 34 Laboratory test 12/18/2011 Cytology Fluid LABORATORY [facility] [...] <0.05 48 Alternaria Class Negative class 48 [place]/ Maple Conc <0.05 48 [place]/ Maple Class Negative class 48 Forest Conc <0.05 48 Forest Class Negative class 48 Birch Conc <0.05 48 Birch Class Negative class 48 Ragweed Short Conc <0.05 48 Ragweed Short Class Negative class 48 Jarvis's Quarter Conc <0.05 48 Jarvis's Quarter Class Negative class 48 IgE,Total 65.0 IU/mL 0.0-108.0 48 Rast 2 06/07/2011 Conc <0.05 48 Class Negative class 48 Penicillium Conc <0.05 48 Penicillium Class Negative class 48 Rhizopus Conc <0.05 48 Rhizopus Class Negative class 48 Curvularia Conc <0.05 48 Curvularia Class Negative class 48 Mucor Conc <0.05 48 Mucor Class Negative class 48 Bucklin Tree Conc <0.05 48 Buck[place] Tree Class Negative class 48 Henning Conc <0.05 48 Henning Class Negative class 48 Elm Conc <0.05 48 Elm Class Negative class 48 Mugwort Conc <0.05 48 Mugwort Class Negative class 48 Armenian Plantain Conc <0.05 48 Armenian Plantain Class Negative class 48 [place] Conc <0.05 48 [place] Class Negative class 48 CBC With Auto [...] Vitamin D, 25 Hydroxy 58 ng/mL 31-100 Urine Microscopic, Only -RL 03/08/2010 Urine WBC -LA 3-5 /HPF (0-5) 57 Urine RBC -LA 0-2 /HPF (0-2) 57 Epithelial Cells -LA 1+ /HPF 57 Bacteria -LA 1+ /HPF 57, 58 Laboratory test finding 03/08/2010 Vaginitis Direct (SEE NOTE) 57, 59 Test(Affirm) -LA Urinalysis -RL 03/08/2010 Color -LA YELLOW 57 Appearance -LA CLEAR 57 Specific [place] -LA 1.003 1.003-1.030 57 Leukocyte Esterase -LA TRACE (Neg) 57 Nitrite -LA NEGATIVE (Neg) 57 PH Urine -LA 8.0 High 5.0-7.5 57 Protein Urine-LA NEGATIVE (Neg) 57 Glucose Urine -LA NEGATIVE (Neg) 57 Ketone Urine -LA NEGATIVE (Neg) 57 Urobilinogen -LA 0.2 mg/dL 0-1.0 57 Bilirubin Urine -LA NEGATIVE (Neg) 57 Blood/HGB Urine-RL TRACE (Neg) 57, 60 Laboratory test finding 03/08/2010 Urine Culture NO GROWTH 57 Laboratory test finding 04/25/2009 Urine Culture NO [...] 68 LA Urine Culture NO GROWTH 67 Basic (BMP) 09/23/2008 Sodium 138 mmol/L 135-144 [...] Color -LA YELLOW Appearance -LA CLEAR Specific [place] -LA 1.023 1.003-1.030 Leukocyte Esterase -LA TRACE [...] 3-5 /HPF (0-2) 76 Laboratory test finding 09/23/2008 Vitamin D, 25 41 ng/mL 31-100 Hydroxy Laboratory test finding 01/23/2008 Urine Culture <10,000 CFU/ML R 77 <SEE NOTE> Laboratory test finding 06/17/2007 Urine Culture [...] Color -LA YELLOW Appearance -LA CLEAR Specific [place] -LA 1.010 (1.003-1.030) Leukocyte Esterase -LA 1+ [...] /HPF Bacteria -LA 1+ /HPF Laboratory test finding 05/27/2006 TSH 3.60 uIU/ml 0.50-6.00 83 Lipid Panel 05/27/2006 Cholesterol 252 mg/dL High 50-199 83 Triglycerides 169 mg/dL High 10-150 83 HDL 68 mg/dL 35-85 83 Chol/HDL Ratio 3.7 Ratio 83 VLDL 34 mg/dL 83 LDL (Calc) 150 mg/dL High 20-129 83 CMP 05/27/2006 Sodium 144 mmol/L 135-144 83 Potassium 5.4 mmol/L High 3.6-5.2 83, 84 Chloride 105 mmol/L 97-110 83 Carbon Dioxide 29 mmol/L 23-33 83 Glucose 86 mg/dL 70-105 83 BUN 10 mg/dL 6-22 83 Creatinine 0.9 mg/dL 0.5-1.3 83 BUN/CR 11 Ratio Low 12.0-20.0 83 Calcium 10.3 mg/dL High 8.6-10.2 83 Total Protein 7.0 g/dL 5.8-7.8 83 Albumin 4.1 g/dL 3.5-4.8 83 Globulin 2.9 g/dL 2.0-3.5 83 A/G Ratio 1.4 Ratio 1.0-2.2 83 Total Bilirubin 0.9 mg/dL 0.3-1.2 83 Alkaline Phosphatase 92 U/L 24-140 83 Alt 29 U/L 4-45 83 Ast 28 U/L 12-40 83 Anion Gap 15 mmol/L 8-16 83 GFR White Male 92 83 GFR White Female 68 83 GFR Black Male 112 83 GFR Black Female 83 83 GFR Guidelines 0 83, 85 CBC With Auto Diff 05/27/2006 WBC 6.5 K/ul 4.0-10.9 83 RBC 4.78 M/ul 4.20-5.40 83 Hemoglobin 13.2 GM/dl 12.5-16.0 83 Hematocrit 41.9 % 36.0-47.0 83 MCV 87.7 FL 80.0-97.0 83 MCH 27.7 pg 27.0-31.0 83 MCHC 31.6 g/dL Low 32.0-36.0 83 RDW 13.0 % 11.5-14.5 83 Platelet Count 228 K/ul 140-440 83 Neutrophils 69.7 % 50-70 83 Lymphocytes 24.3 % 20-44 83 Monocytes 2.3 % 2-9 83 Eosinophil 3.1 % 0-4 83 Basophil 0.6 % 0-2 83 Absolute Neutrophils 4.6 K/ul 2.05-7.63 83 Absolute Lymphocytes 1.6 K/ul 0.8-4.8 83 Absolute Monocytes 0.1 K/ul 0.1-1.0 83 Absolute Eosinophils 0.2 K/ul 0.1-0.5 83 Absolute Basophils 0.0 K/ul Low 0.1-0.3 83 Laboratory test finding 05/27/2006 Papsmear, Thinprep - SEE REFERENCE LA < SEE 86 LA NOTE> Urinalysis -RL 05/22/2006 Color -LA YELLOW Appearance -LA CLEAR Specific [place] -LA 1.010 (1.003-1.030) Leukocyte Esterase -LA NEGATIVE (Neg) Nitrite -LA NEGATIVE (Neg) PH Urine -LA 7.0 (5.0-7.5) Protein Urine-LA NEGATIVE (Neg) Glucose Urine -LA NEGATIVE (Neg) Ketone Urine -LA NEGATIVE (Neg) Urobilinogen -LA NORMAL (Norm) Bilirubin Urine -LA NEGATIVE (Neg) Blood/HGB Urine-RL 2+ (Neg) Urine Microscopic, Only -RL 05/22/2006 Urine WBC -LA 0-2 /HPF (0-5) Urine RBC -LA * 6-10 /HPF (0-2) Epithelial Cells -LA 1+ /HPF Bacteria -LA 2+ /HPF Laboratory test finding 01/11/2006 Urine Culture NO GROWTH Urinalysis -RL 01/11/2006 Color -LA YELLOW Appearance -LA CLEAR Specific [place] -LA 1.010 Leukocyte Esterase -LA TRACE Nitrite -LA NEGATIVE PH Urine -LA 7.0 Protein Urine-LA NEGATIVE Glucose Urine -LA NEGATIVE Ketone Urine -LA NEGATIVE Urobilinogen -LA NORMAL Bilirubin Urine -LA NEGATIVE Blood Urine -LA 1+ 87 Yuriy Farmer Acute Antibody 07/11/2005 Ebv Ab [...] 10.5-12.2 94 Inr 6.87 High 2.0-3.0 95 Lipid Panel 02/07/2004 Cholesterol 222 mg/dL High 50-199 Triglycerides 89 mg/dL 30-200 HDL 64 mg/dL 35-85 Chol/HDL Ratio 3.5 Ratio VLDL 18 mg/dL LDL (Calc) 140 mg/dL High 20-129 PT And Inr 02/07/2004 Prothrombin Time 11.0 SEC 10.5-12.2 Inr 0.95 Low 2.0-3.0 96 CMP 02/03/2004 Sodium 142 mmol/L 135-145 Potassium [...] U/L 24-108 Anion Gap 12 mmol/L 10-20 CBC 02/03/2004 WBC 6.3 K/ul 4.1-10.9 RBC [...] 0.1-0.5 Absolute Basophils 0.0 K/ul Low 0.1-0.3 PT And Inr 01/25/2004 Prothrombin Time 13.8 [...] result gr <SEE NOTE> ng/ml 3.0-16.0 101 CBC 09/28/2003 WBC 8.9 K/ul 4.1-10.9 RBC [...] Basophils 0.1 K/ul 0.1-0.3 Laboratory test finding 09/28/2003 TSH 2.39 uIU/ml 0.50-6.00 1 Updated reference range on new analyzer [...] PREDICTIVE OF MYOCARDIAL INJURY THAN LESSER ELEVATIONS. (NEJ 361:9, 2009) Unless otherwise specified, testing performed by [facility] [address] [place] [id number] This sample is drawn by:[facility]. 8 Per NCEP ATP III Guidelines: Results lower than 40 mg/dL are suggestive of increased risk for coronary artery disease. Results > or=to 60 mg/dL are considered a negative risk factor. 9 Per NCEP ATP III Guidelines: Normal Population <130 Patients with medical conditions: CHD/DM Optimal: <100 Borderline high: 130-159 High: 160-189 Very high: >189 10 Updated reference range on new analyzer 11 Updated reference range on new analyzer 12 Concerning GFR Guidelines for Americans: Normal function or mild renal disease, if clinically at risk: >/=60 mL/min Moderately decreased: 30-59 Severely decreased: 15-29 Renal failure: <15 13 Concerning GFR Guidelines: Normal function or mild [...] drugs that are excreted by the kidneys. 14 Updated reference range on new analyzer 15 5.3 Specimen Slightly Hemolyzed 16 Concerning [...] This sample is drawn by:BR Fastin hours 20 TROPONIN LEVELS TWO TIMES THE UPPER LIMIT OF NORMAL ARE MORE PREDICTIVE OF MYOCARDIAL INJURY THAN LESSER ELEVATIONS. ([facility] 361:9, 2009) Unless otherwise specified, testing performed by Laboratory [facility] [address] [place] [address] 21 Unless otherwise specified, testing performed by [facility] [employer] [address] [place] [address] 22 This sample is drawn by:BR Fastin hours This sample is drawn by:BR Fastin hours Fastin hours Fastin hours 23 Concerning GFR Guidelines for Americans: Normal function or mild renal disease, if clinically at risk: >/=60 mL/min Moderately decreased: 30-59 Severely decreased: 15-29 Renal failure: <15 24 Concerning GFR Guidelines: Normal function or mild [...] drugs that are excreted by the kidneys. 25 This sample is drawn by:CT 26 Concerning GFR Guidelines for Americans: Normal function or mild renal disease, if clinically at risk: >/=60 mL/min Moderately decreased: 30-59 Severely decreased: 15-29 Renal failure: <15 27 Concerning GFR Guidelines: Normal function or mild [...] drugs that are excreted by the kidneys. 28 Per NCEP ATP III Guidelines: Results lower than 40 mg/dL are suggestive of increased risk for coronary artery disease. Results > or=to 60 mg/dL are considered a negative risk factor. 29 Per NCEP ATP III Guidelines: Normal Population <130 Patients with medical conditions: CHD/DM Optimal: <100 Borderline high: 130-159 High: 160-189 Very high: >189 30 This sample is drawn by:RAMIRO 31 [...] infection. Unless otherwise specified, testing performed by [facility] [address] [address] [address] [employer] [facility]. [address] [place] [address] MISCELLANEOUS CYTOLOGY REPORT Accession Number: [id number] Source of Specimen(s): A: Urine, Voided Clinical Diagnosis and History: Gross Description: Urine, Voided: 30 cc clear yellow fluid. Final Diagnosis: Specimen Adequacy Satisfactory Final Diagnosis NEGATIVE FOR MALIGNANCY Erythrocytes and scattered bacteria noted. Reported: 12/19/2011 Electronically Signed Out By Anam Coburn M.D. Bi Solutions Architect: Rhianna JAVIER(ASCP) [facility] [address] [employer] [facility]. [address] [place] [address] GYNECOLOGIC CYTOLOGY REPORT Accession Number: [id number] Source of Specimen(s): A: [facility] Vaginal/ Cervical/ [...] Reported: 12/20/2011 Electronically Signed Out By Yesi JAVIER(ASC) [facility] da 37 This sample is drawn by:MAGDA. 38 SEE REFERENCE LAB REPORT 39 Unless otherwise specified, [place] [address] 40 Concerning GFR Guidelines for Americans: Normal [...] Unless otherwise specified, testing performed [place] [address] 47 Reference range: 0.00 to 0.40 Performed by [facility], [address] [place] [id number] [email or web address], Gladys Holbrook MD, Lab. Director Unless otherwise specified, testing performed by [facility] [place] [facility] [address] [place] [id number] 48 This sample is drawn by:RAMIRO 49 [...] 58 Unless otherwise specified, testing [place] [address] 59 SPECIMEN DESCRIPTION VAGINAL SPECIMEN RESULT NEGATIVE FOR TRICHOMONAS VAGINALIS NEGATIVE FOR GARDNERELLA VAGINALIS NEGATIVE FOR ANTHONY SPECIES REPORT STATUS FINAL 03/08/2010 Unless otherwise specified, [place] [address] 60 Unless otherwise specified, testing [place] [address] 61 LAB DRAW KSLPN Test deleted. Reason: [...] 67 This sample is drawn by:MAGDA 68 [facility] [employer] [facility]. [address] [place] [address] MISCELLANEOUS CYTOLOGY REPORT Accession Number: [id number] Source of Specimen(s): A: Urine, Voided Clinical Diagnosis and History: 595.0 Gross Description: Urine, Voided: 40 cc cloudy yellow fluid. Final Diagnosis: Specimen Adequacy Satisfactory Final Diagnosis NEGATIVE FOR MALIGNANCY Squamous cells and urothelial cells with scattered neutrophils and red blood cells. Reported: 10/07/2008 Electronically Signed Out By Neptali Morocho MD Bi Solutions Architect: Kia Knapp [facility](ASCP)([facility]) [facility], [facility] ICD9 Code: 595.0 Unless otherwise specified, testing performed by [facility] [address] [address] 69 The difference between the most recent [...] 75 Unless otherwise specified, testing performed by [facility] [employer] ([place] [address] 76 Unless otherwise specified, testing performed by [employer] [facility] [employer] [facility] [address] 77 <10,000 CFU/ML REPRESENTING URETHRAL INO 78 [...] Test deleted. Reason: NO SPECIMEN REC'V 83 FASTING 84 NO VISIBLE HEMOLYSIS 85 Normal Function or Mild Renal Disease, if [...] drugs that are excreted by the kidneys. 86 SEE REFERENCE LAB REPORT 87 MICROSCOPIC: WBC: 0-2 RBC: 0-2 EPITH: [...] Procedures Date CPT Code Description Status Comment 05/13/2018 28984 Electrocardiogram Complete Completed 02/07/2018 Colonoscopy Completed Document: 02/07/18 - Colonoscopy 01/05/2014 Bone Mineral Density Test Completed 12/29/2013 27179 Electrocardiogram Complete Completed 12/29/2013 66375 Electrocardiogram Complete Completed 12/18/2011 93387 Electrocardiogram Complete Completed 11/26/2011 Colonoscopy Completed 11/29/2010 85192 Measure Blood Oxygen Level Completed Single Determination 06/26/2010 Colonoscopy Completed 12/17/2008 18655 Charge Back Completed 09/16/2008 77873 Electrocardiogram Complete Completed 01/23/2008 12361 Admin Of Inj Completed (Therapeutic,Prophylactic Or Diagnostic Subq Or Intr 12/03/2007 38747 Admin Of Inj Completed (Therapeutic,Prophylactic Or Diagnostic Subq Or Intr 06/12/2007 21391 Admin Of Inj Completed (Therapeutic,Prophylactic Or Diagnostic Subq Or Intr 03/26/2007 59247 Electrocardiogram Complete Completed 02/05/2007 22102 Admin Of Inj Completed (Therapeutic,Prophylactic Or Diagnostic Subq Or Intr 07/17/2006 11256 Admin Of Inj Completed (Therapeutic,Prophylactic Or Diagnostic Subq Or Intr 06/21/2006 07033 Admin Of Inj Completed (Therapeutic,Prophylactic Or Diagnostic Subq Or Intr 05/09/2006 63120 Admin Of Inj Completed (Therapeutic,Prophylactic Or Diagnostic Subq Or Intr 09/12/2005 52875 Admin Of Inj Completed (Therapeutic,Prophylactic Or Diagnostic Subq Or Intr 04/04/2005 76455 Deleted Code Use 75143 Completed 12/26/2004 96414 Electrocardiogram Complete Completed 12/06/2004 96331 Electrocardiogram Complete Completed 10/04/2004 67255 Deleted Code Use 87879 Completed 03/08/2004 07346 Electrocardiogram Complete Completed 02/03/2004 87531 Deleted Code Use 54896 Completed 01/25/2004 12376 Deleted Code Use 99356 Completed 01/25/2004 70612 Electrocardiogram Complete Completed 01/20/2004 32210 Remove Foreign Body Completed Subcutaneous Simple 01/03/2004 93294 Electrocardiogram Complete Completed 01/03/2004 34710 Deleted Code Use 90069 Completed 01/03/2004 17953 Remove Foreign Body Completed Subcutaneous Simple 12/27/2003 77865 Deleted Code Use 05111 Completed 12/13/2003 60076 Deleted Code Use 34165 Completed 12/06/2003 73921 Deleted Code Use 95758 Completed 11/26/2003 45357 Duplex Scan Extracranial Completed Arteries, Complete Bilateral Study Encounters Type Date Location Provider CPT E/M Dx Office Visit 01/08/2018 11:15[place] [address] M54.2 F07.81 Z12.11 R26.89 Office Visit 02/22/2017 10:45a Marlee Fournier MD G0439 Z00.01 D01.3 Z12.11 Z12.31 J45.20 R19.7 E55.9 K21.9 H81.10 F07.81 Z11.59 S60.945A N95.2 Office Visit 01/23/2017 2:40[place] [address] R05 R07.9 Office Visit 01/10/2016 4:00p [place] [address] R87.619 D01.3 S06.0x0D Z12.31 Office Visit 06/08/2015 1:20p [place] [address] S06.0x0D Office Visit 01/12/2015 12:40p Crystal Thacker RN [facility] [employer] 79175 786.50 786.09 493.00 790.6 Office Visit 10/07/2014 1:40p Crystal Thacker RN [employer]GRAM[employer] 99542 466.0 Office Visit 04/05/2014 11:40[place] [address] 230.5 Office Visit 02/10/2014 10:00[place] [address] 230.5 780.93 Office Visit 12/29/2013 1:00p Amira Moore MD G0439 230.5 296.32 V81.2 268.9 427.31 V70.0 V79.0 723.1 493.00 477.0 780.93 V77.1 Office Visit 07/27/2013 4:15p [place] [address] 723.1 724.2 Office Visit 02/05/2013 10:20a Crystal Thacker RN [facility] 97859 723.1 916.0 Office Visit 10/07/2012 3:20p Crystal Tahcker RN [facility] 94818 373.12 Office Visit 08/12/2012 12:00p Crystal Thacekr RN [facility] 12648 780.79 241.0 627.3 959.5 Office Visit 08/12/2012 12:00p Crystal Thacker RN [facility] 07989 780.79 723.1 723.1 241.0 627.3 Office Visit 02/19/2012 1:15p [place] [address] 296.32 154.2 241.0 278.02 723.1 Office Visit 12/18/2011 2:00p [place] [address] V72.31 599.70 296.32 708.2 V76.10 V82.81 V04.81 154.2 V06.1 V72.81 627.3 368.9 723.1 241.0 Office Visit 09/21/2011 1:30[place] [address] 296.32 780.4 995.3 780.93 281.1 V76.10 153.9 Office Visit 06/07/2011 2:00p Crystal Thacker RN [facility] 76236 V41.1 995.3 272.0 Office Visit 11/29/2010 1:15p Yadira Hoskins, N.P. 59172 466.0 382.00 Office Visit 03/08/2010 11:15[place] [address] 595.0 723.1 616.10 783.1 Office Visit 01/16/2010 2:15p Yadira Hoskins, N.P. 59882 780.4 787.03 Office Visit 04/25/2009 11:15a Yadira Hoskins, N.P. 90013 595.0 Office Visit 12/30/2008 1:50[place] [address] 786.09 Office Visit 12/28/2008 3:50[place] [address] 599.0 Office Visit 12/16/2008 2:10[place] [address] 079.89 Office Visit 09/16/2008 2:10[place] [address] 281.0 296.32 599.0 Office Visit 01/23/2008 2:00[place] [address] 281.0 719.41 569.0 595.0 296.32 733.09 327.23 Office Visit 12/03/2007 2:00[place] [address] 787.01 719.41 786.51 Office Visit 09/12/2007 10:00a Yadira Hoskins, N.P. 75936 726.10 Office Visit 06/17/2007 1:00p Yadira Hoskins, N.P. 52948 599.0 Office Visit 03/26/2007 11:00[place] [address] 296.32 724.2 281.0 525.9 786.51 Office Visit 02/05/2007 11:30[place] [address] 595.0 296.32 327.23 836.2 724.2 281.0 Office Visit 08/28/2006 1:00[place] [address] 296.32 847.0 564.00 275.42 847.2 477.0 Office Visit 07/17/2006 10:30[place] [address] 817.0 847.0 780.57 211.3 300.02 281.0 V04.81 Office Visit 06/21/2006 11:30a Yadira Hoskins, N.P. 34225 788.1 281.0 Office Visit 05/27/2006 9:30a Yadira Hoskins, N.P. 37735 V72.31 569.3 Office Visit 05/22/2006 11:30[place] [address] 300.02 427.31 724.2 723.1 599.7 477.8 Office Visit 12/26/2005 11:00[place] [address] 724.2 723.1 Office Visit 11/19/2005 2:00p Yadira Hoskins, N.P. 16097 465.9 008.8 Office Visit 11/07/2005 11:15[place] [address] 846.0 Office Visit 10/10/2005 11:00[place] [address] 780.4 723.1 296.32 Office Visit 09/12/2005 8:00[place] [address] 009.0 296.32 266.2 281.0 Office Visit 07/11/2005 11:45[place] [address] 296.32 780.79 281.0 723.1 266.2 Office Visit 05/16/2005 9:45[place] [address] 296.32 719.46 Office Visit 03/07/2005 11:30[place] [address] 272.0 296.22 783.1 Office Visit 12/26/2004 11:45a Yadira Hoskins, N.P. 42109 300.02 788.1 786.50 Office Visit 12/06/2004 11:15[place] [address] 280.9 786.51 Office Visit 10/04/2004 1:00[place] [address] 723.1 281.0 780.79 784.0 826.0 Office Visit 09/07/2004 1:15p Yadira Hoskins, N.P. 74073 724.2 296.32 599.0 Office Visit 07/10/2004 1:00[place] [address] 784.0 719.47 Office Visit 05/22/2004 11:00[place] [address] 780.4 380.10 783.1 Office Visit 05/11/2004 10:15a Yadira Hoskins, N.P. 33598 723.1 296.32 780.4 Office Visit 03/08/2004 12:00p Yadira Hoskins, N.P. 19007 786.51 296.32 780.79 Office Visit 02/14/2004 9:00[place] [address] 300.02 V58.61 296.32 310.2 Office Visit 02/08/2004 10:15a Yadira Hoskins, N.P. 19864 V58.61 300.02 296.32 780.4 Office Visit 02/07/2004 11:00[place] [address] V58.61 300.02 427.31 780.4 787.01 Office Visit 02/03/2004 1:15p Yadira Hoskins, N.P. 45783 300.02 296.32 780.4 787.02 Office Visit 01/20/2004 12:15p Yadira Hoskins, N.P. 58501 892.0 Office Visit 01/03/2004 11:15[place] [address] V58.61 427.31 786.51 919.6 285.9 Office Visit 12/06/2003 10:45[place] [address] 281.0 784.0 726.73 780.93 Office Visit 10/07/2003 4:00p Yadira Hoskins, N.P. 19607 477.0 296.32 784.0 372.05 Office Visit 10/04/2003 11:00[place] [address] 493.10 298.9 310.2 V18.0 Office Visit 09/28/2003 1:30p Yadira Hoskins, N.P. 51188 780.79 784.0 780.93 298.9 Office Visit 05/24/2003 12:45p Yadira Hoskins, N.P. 47605 599.0 Office Visit 02/19/2003 9:15a Yadira Hoskins, N.P. 29041 595.0 Plan of Care Future Appointment(s):06/12/2018 1:00 pm - Rafal Miranda PA at [id number] 9:45 am - Marlee Rhoades MD at [id number]/13/2018 - Rafal Miranda PAR42 Dizziness and giddinessNew Xrays:Carotid Doppler Duplex Scan-Complete Bilateral StudyEchocardiogramMRI Brain W & W/O ContrastComments:needs cardio work up. check basic labs. does not make sense that this would be neuro with acute change 3yrs after concussion/tbi.Referral:Rosy Johnson, Cardiology/Phys/ OsteoFollow up:f/u 3ynujpG93.81 Postconcussional syndromeNew Xrays:Carotid Doppler Duplex Scan-Complete Bilateral StudyEchocardiogramMRI Brain W & W/O ContrastComments:3 yrs s/p TBI. ??why acute change now. no other focal neuro impairment.R94.31 Abnormal electrocardiogram [ECG] [EKG]New Xrays:Carotid Doppler Duplex Scan-Complete Bilateral StudyEchocardiogramMRI Brain W & W/O ContrastComments:??ST elevation inferior. referring to cardio and getting Echo and Carotid doppler.E83.42 YglwkuaspyngekD68.40xD Allergy, unspecified, subsequent awhkyuynrH07.40xD Allergy, unspecified, subsequent encounter
--- OUTSIDE RECORDS SUMMARY | 2018-06-04 09:00 | XMS REPORT ---
:1950 External Reference #:[id number] [facility] Address [address] [address] Phone [phone] Care Team Providers Name Role Phone Marlee Rhoades MD Care Team Information Functional Tester Typewriters Unavailable Payers Type Date Identification Numbers Payment Provider Subscriber Commercial Effective: Policy Number: [id number] Today's Options Daxa Perez 2015 PayID: [id number] [address] [address] [place] [address] Workers Compensation Effective: Policy Number: Adams Mittal 2012 [id number] Insurance Chris Onset: 2012 [address] [place] [address] Problems Date Description Provider Status Onset: 12/18/2011 [...] intermittent asthma Marlee Rhoades MD Active Onset: 09/21/2011 Moderate recurrent major depression Marlee [...] 05/02 Active Solution 0.3mg/0.3 2unit as needed Maca Auto-Inject ML s Marlee Barry MD Cyclobenzaprine [...] , Potency every day Marlee Barry MD [place] 3 01/23 Active Capsules 1000mg 1 capsule [place] per oral Marlee daily MD Asha Multimineral 01/23 Active Tablets 1 tablet [place], per oral Marlee daily MD Asha Ventolin HFA 12/16 Active Aerosol 108(90Bas 1unit inhale two J45.20 [place] e) s puffs by Marlee mcg/Act mouth four MD Asha times a day Ondansetron HCL 03/01 Hx Tablets 4mg 30tab 1 by mouth [place] s three Marlee - times a MD [...] Maca Auto-Inject ML s Marlee - MD Asha 05/02 Physical And 07/04 Hx to Partha evaluate Amira Therapy - and tx MD Elva 01/09 dx: concussion Zofran 05/19 Hx Tablets 4mg 30tab 1 tab by s mouth q6hr Amira - as needed MD Elva 01/09 Meclizine HCL 05/16 Hx Tablets 12.5mg 45tab 1-2 tab by R11.0 [place], s mouth Marlee - [place] Barry MD 02/22 times day as needed dizziness and nausea Cipro 11/12 Hx Tablets 250mg 6tabs 1 po bid x Stefano 3 d Crystal - IRAJ Mariee MS 01/12 [employer]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 that would req abx Cyclobenzaprine 02/18 Hx Tablets 10mg 30tab tid prn M54.2 Partha marcie Stevenson MD 01/23 Premarin 12/17 Hx Cream 0.625mg/G 42.50 qhs x 2 627.3 [place] M 0gm wks then Marlee Barry MD 08/12 2x/wk Cipro 11/25 Hx Tablets 250mg 6tabs 1 po bid x [place] 3 d Marlee Barry MD 12/17 Asmanex 30 10/02 Hx Aerosol 220mcg/In 1unit One Stefano, Metered Doses h s Inhalation Crystal - bid CIRAJ MS 12/16 [employer]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 08/31 Epipen 02/21 Hx Device 0.3mg/0.3 1unit use as ML s ayse May - N.P. 06/28 Erythromycin 02/13 Hx Caps 250mg 40cap 1 po qid x Eulalio s 10 days Skyele, - N.P. 09/21 Zithromax Z-Sandor 12/04 Hx Tablets 250mg 1tabs as directed Yadira, - N.P. 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 03/08 Meclizine HCL 01/16 Hx Tablets 25mg 30tab 1 po tid Eulalio s Skyele, - N.P. 12/17 Proair HFA 08/04 Hx Aerosol 108(90Bas 1unit 2 puffs Eppolito, e) mcg/ac s qid prn Vladimir Waddell MD 11/29 Estrace 05/09 Hx Cream 0.1mg/GM 42.50 apply 0gm 0.1mg Yadira, - vaginally N.P. 12/17 qd x week the 2-3 times a week Diflucan 04/25 Hx Tablets 100mg 5tabs 1 tabs qd [place] x 5 days Yadira, - N.P. 03/08 Dental 03/30 Hx pt's prior Macadam, use of Marlee Gilbert fosamaabril Barry MD 04/09 not contraindi cation to proceed Ciprofloxacin 12/28 Hx Tablets 250mg 14tab 1 po bid [place], s x 7days Yadira, - N.P. 05/09 [...] Hx Suspension 50mcg/Act 1Bott 2 p Bilat [place] le qd Yadira, - N.P. 12/17 Phenergan [...] Hx Tablets 800mg 60tab 1 po qid Eulalio s with food Yadira, - N.P. 12/02 Ciprofloxacin 06/17 Hx Tablets 500mg 10tab 1 PO bid X [place], s 5 days Mashelle, - N.P. 08/11 Amoxicillin 03/26 Hx Tablets 500mg 21tab 1 PO tid 525.9 s Marlee Barry MD 06/11 Cipro 02/05 Hx Tablets 250mg 14tab 1 PO bid 595.0 [place] s Marlee Barry MD 06/11 Xanax 02/05 Hx Tablets 0.25mg 20tab one 599.0 s half-two Marlee - po tid prn MD Asha 09/16 Physical Therapy 02/05 Hx eval and 724.2 treat l Marlee - knee, l-S MD Asha 06/11 spine Lexapro 08/28 Hx Tablets 10mg 28tab 1 PO qd 599.0 Macaparamjit s Marlee Barry MD 09/12 Isis 08/28 Hx Tablets 180mg 30tab 1 po qd 477.0 Macadam s prn Marlee Barry MD 09/16 Effexor XR 07/17 Hx Capsules 37.5mg 30cap 1 po qd Macaparamjit s Marlee Barry MD 09/16 Cipro 06/21 Hx Tablets 500mg 20tab 1 po bid x Eulalio s 10 days Mashelle, - N.P. 08/28 Ibuprofen 05/22 Hx Tablets 800mg 90tab One PO 724.2 paramjit s Q8HRS With Marlee - Food meredith Barry MD 09/12 Singulair 05/22 Hx 10mg 30uni 1 po qd 477.8 ts Marlee Barry MD 12/16 Ecasa 05/22 Hx 325mg 1 PO qd 427.31 Marlee Barry MD 12/16 Wellbutrin SR 03/26 Hx Tablets 150mg 60tab 1 po bid Macaparamjit s Marlee Barry MD 05/22 Macrobid 03/20 Hx Capsules 100mg 14cap 1 po bid Macaparamjit s as dir Marlee Barry MD 05/22 Cipro 01/11 Hx Tablets 250mg 6tabs 1 po bid Macaparamjit, Marlee Barry MD 05/22 Soma 11/07 Hx Tablets 350mg 30tab 1/2-1 PO 846.0 Macaparamjit s tid prn Marlee Barry MD 09/12 Hydrocodone & 11/07 Hx Tablets 5mg;500 30tab 1-2 po q6h 846[facility]0 [facility] mg s prn Marlee Barry MD 09/12 [...] Tablets 25mg 30tab 1/2 To 1 780.4 Macaparamjit s PO tid prn Marlee Barry MD 09/12 Gym Note 10/10 Hx please 780.4 Macaparamjit allow PT Marlee Barry MD 10/11 free trial at the gym now being premedicat ed for vertigo condition Nortriptiline 10/10 Hx 10mg 60uni 1-2 PO QHS 723.1 [place] ts Marlee Barry MD 09/12 Phenergan 09/12 Hx Tablets 12.5mg 7tabs 1-2 po tid [place] prn nausea Marlee Barry MD 10/10 Vicodin 05/25 Hx Tablets 5mg;500 40tab 1-2 po qid [place], mg s prn Marlee Barry MD 10/10 Effexor XR 03/07 Hx Capsules 75mg 90cap 1 po qd [place], s Marlee Barry MD 09/12 Effexor XR 03/07 Hx Capsules 37.5mg 90cap 1 po qd [place] s with 75 mg Marlee Barry MD 09/12 Wellbutrin XL 03/07 Hx Tablets 300mg 30tab 1 po qd [place], s Marlee Barry MD 09/12 Wellbutrin XL 03/07 Hx Tablets 150mg 14tab 1 po qd x [place], s 14d Marlee Barry MD 03/21 Effexor XR 12/25 Hx Capsules 150mg 90cap 1 po qd [place], s Yadira, - N.P. 03/07 Effexor XR 10/04 Hx Capsules 150mg 30cap 1 po qam [place] s Marlee Barry MD 12/25 Medications Administered in Office Medication Date Status Form Strength Qnty SIG Indications Ordering Provider B-12 Injection Administered Injection [place], 008 Marlee Barry MD Tigan Im Up To Administered Injection Trabout, 200 MG 008 MD Teodoro Phenergan(Prom Administered Injection Trabout, ethazine 008 Teodoro, i)Up To 50 MD MG B-12 Injection Administered Injection Trabout, 007 MD Teodoro B-12 Injection Administered Injection Nurses 007 Schedule [place] B-12 Injection Administered Injection [place], 007 Marlee Barry MD B-12 Injection Administered Injection Nurses 007 Schedule [place] B-12 Injection Administered Injection [place], 007 Marlee Barry MD B-12 Injection Administered Injection [place], 006 Marlee Barry MD B-12 Injection Administered Injection Eulalio, 006 Mashelle, N.P. B-12 Injection Administered Injection Stefano, 006 Crystal Mariee RN MS [employer] SALES CLERK B-12 Injection Administered Injection [place], 006 Marlee Barry MD B-12 Injection Administered Injection [place], 005 Marlee Barry MD B-12 Injection Administered Injection [place], 005 Marlee Barry MD B-12 Injection Administered Injection [place], 005 Marlee Barry MD Phenergan(Prom Administered Injection [place], ethazine 004 Skyele, Hci)Up To 50 N.P. MG B-12 Injection Administered Injection [place], 004 Mashelle, N.P. B-12 Injection Administered Injection [place], 004 Marlee Barry MD B-12 Injection Administered Injection [place], 004 Marlee Barry MD B-12 Injection Administered Injection [place], 004 Mashelle, N.P. B-12 Injection Administered Injection Macaparamjit, 004 Marlee Barry MD Immunizations CPT Code Status Date Vaccine Lot # 57424 Given 02/22/2017 Prevnar 13 Pneumococal Conjugate Vaccine 22247 Given 12/18/2011 Pneumococcal 23 Immunization Adult Or Immunosuppressed Patient 79900 Given 12/18/2011 Tdap (Adacel) Ages 7 And Above Only 50662 Given 07/17/2006 Afluria Or Fluvirin Flu Vac Intramuscular [id number] 57498 Given 06/13/2005 Afluria Or Fluvirin Flu Vac Intramuscular 42897 Given 06/13/2005 Afluria Or Fluvirin Flu Vac Intramuscular [id number] Vital Signs Date Vital Result Comment 05/13/2018 [...] Result H/L Range Note Laboratory test finding 05/13/2018 TSH <pending> Magnesium <pending> Laboratory test finding 05/13/2018 Troponin I- RL <pending> Order 01/08/2018 Physical Therapy <pending> CBC With Auto Diff 02/22/2017 WBC 3.9 K/uL Low 4.1-11.0 1 RBC 4.57 M/uL 4.00-5.40 1 Hemoglobin 13.4 gm/dL 12.0-16.0 1 Hematocrit 40.0 % 36.0-47.0 1 MCV 87.5 fL 80.0-97.0 1 MCH 29.2 pg 27.0-32.0 1 MCHC 33.4 g/dL 32.0-36.0 1 RDW 13.7 % 11.5-14.5 1 PLT Count 184 K/ul 140-400 1 Neutrophil 64.7 % 35.0-75.0 1 Lymphocyte 24.4 % 16.0-52.0 1 Monocyte 6.3 % 2.0-10.0 1 Eosinophil 3.7 % 0.0-5.0 1 Basophil 0.9 % 0.0-4.0 1 Abs Neutrophils 2.5 K/uL 2.1-8.0 1 Abs Lymphocytes 1.0 K/uL 0.8-5.5 1 Abs Monocytes 0.2 K/uL 0.1-1.0 1 Abs Eosinophils 0.1 K/uL 0.0-0.5 1 Abs Basophils 0.0 K/uL 0.0-0.3 1 Lipid 02/22/2017 Cholesterol 230 mg/dL High 50-199 1 Triglycerides 157 mg/dL 30-200 1 HDL 59 mg/dL 35-85 1, 2 Chol/ HDL Ratio 3.9 ratio 3.7-5.6 1 VLDL 31 mg/dL High 2-29 1 LDL (Calc) 140 mg/dL High 20-99 1, 3 Comprehensive Met Panel-FCMG 02/22/2017 Sodium 142 mmol/L 135-146 1, 4 Potassium 4.8 mmol/L 3.5-5.2 1 Chloride# 106 mmol/L 97-110 1, 5 Carbon Dioxide 29 mmol/L 24-34 1 Glucose 80 mg/dL 70-105 1 BUN 10 mg/dL 6-26 1 Creatinine 0.7 mg/dL 0.5-1.4 1 Calcium 9.7 mg/dL 8.5-10.2 1 Total Protein 6.3 g/dL 6.0-8.0 1 Albumin 4.0 g/dL 3.6-4.9 1 Globulin 2.3 g/dL 2.0-3.5 1 A/G Ratio 1.7 Ratio 1.0-2.2 1 Total Bilirubin 0.5 mg/dL 0.1-1.3 1 Alkaline Phosphatase 79 U/L 24-140 1 Alt 19 U/L 3-42 1 Ast 19 U/L 8-42 1 Jacinta Egfr >60 >60 1, 6 Non Jacinta Egfr >60 >60 1, 7 Anion Gap 12 mmol/L 7-16 1, 8 Laboratory test finding 02/22/2017 TSH 1.00 uIU/mL 0.35-4.94 1 Hepatitis C Virus Antibody NONREACTIVE Nonreactive 1 CBC With Auto Diff 05/16/2015 WBC 4.6 [...] Specimen Sli <SEE NOTE> mmol/L High 3.5-5.2 9 Chloride 105 mmol/L 97-109 Carbon Dioxide 28 [...] 10 mmol/L 6-14 Jacinta Egfr >60 >60 10 Non Jacinta Egfr >60 >60 11 Laboratory test 05/16/2015 Urine Culture Microbiology res <SEE 12 finding NOTE> Laboratory test 01/12/2015 Troponin I <0.06 ng/mL (0.00-0.1 13, 14 finding 0) B Natriuretic Pep 65 pg/mL (0-100) 13, 15 Laboratory test finding 01/12/2015 Magnesium 2.0 mg/dL 1.5-2.7 16 Comprehensive Metabolic (CMP) 01/12/2015 Sodium 139 mmol/L 134-142 16 Potassium 4.5 mmol/L 3.5-5.2 16 Chloride 104 mmol/L 97-109 16 Carbon Dioxide 29 mmol/L 24-34 16 Glucose 75 mg/dL 70-105 16 BUN 17 mg/dL 6-26 16 Creatinine 0.8 mg/dL 0.5-1.4 16 Calcium 9.7 mg/dL 8.5-10.2 16 Total Protein 6.8 g/dL 6.0-8.0 16 Albumin 4.2 g/dL 3.6-4.9 16 Globulin 2.6 g/dL 2.0-3.5 16 A/G Ratio 1.6 Ratio 1.0-2.2 16 Total Bilirubin 0.5 mg/dL 0.1-1.3 16 Alkaline Phosphatase 76 U/L 24-140 16 Alt 25 U/L 3-42 16 Ast 19 U/L 8-42 16 Anion Gap 11 mmol/L 6-14 16 Jacinta Egfr >60 >60 16, 17 Non Jacinta Egfr >60 >60 16, 18 CBC With Auto Diff 01/12/2015 WBC 3.6 K/uL Low 4.1-11.0 16 RBC 4.70 M/uL 4.00-5.40 16 Hemoglobin 13.8 gm/dL 12.0-16.0 16 Hematocrit 42.4 % 36.0-47.0 16 MCV 90.3 fL 80.0-97.0 16 MCH 29.5 pg 27.0-32.0 16 MCHC 32.7 g/dL 32.0-36.0 16 RDW 14.1 % 11.5-14.5 16 PLT Count 158 K/ul 140-400 16 Neutrophil 72.2 % 35.0-75.0 16 Lymphocyte 15.6 % Low 16.0-52.0 16 Monocyte 7.0 % 2.0-10.0 16 Eosinophil 4.1 % 0.0-5.0 16 Basophil 1.1 % 0.0-4.0 16 Abs Neutrophils 2.6 K/uL 2.1-8.0 16 Abs Lymphocytes 0.6 K/uL Low 0.8-5.5 16 Abmon 0.3 K/uL 0.1-1.0 16 Abs Eosinophils 0.1 K/uL 0.0-0.5 16 Abs Basophils 0.0 K/uL 0.0-0.3 16 CBC With Auto Diff 12/29/2013 WBC 6.8 K/uL 4.1-11.0 19 RBC 4.92 M/uL 4.00-5.40 19 Hemoglobin 14.4 gm/dL 12.0-16.0 19 Hematocrit 42.3 % 36.0-47.0 19 MCV 85.9 fL 80.0-97.0 19 MCH 29.3 pg 27.0-32.0 19 MCHC 34.1 g/dL 32.0-36.0 19 RDW 13.7 % 11.5-14.5 19 PLT Count 186 K/ul 140-400 19 Neutrophil 65.0 % 35.0-75.0 19 Lymphocyte 27.5 % 16.0-52.0 19 Monocyte 4.9 % 2.0-10.0 19 Eosinophil 1.4 % 0.0-5.0 19 Basophil 1.2 % 0.0-4.0 19 Abs Neutrophils 4.5 K/uL 2.1-8.0 19 Abs Lymphocytes 1.9 K/uL 0.8-5.5 19 Abmon 0.3 K/uL 0.1-1.0 19 Abs Eosinophils 0.1 K/uL 0.0-0.5 19 Abs Basophils 0.1 K/uL 0.0-0.3 19 Comprehensive Metabolic (CMP) 12/29/2013 Sodium 139 mmol/L 134-142 19 Potassium 4.9 mmol/L 3.5-5.2 19 Chloride 104 mmol/L 97-109 19 Carbon Dioxide 33 mmol/L 24-34 19 Glucose 91 mg/dL 70-105 19 BUN 13 mg/dL 6-26 19 Creatinine 0.6 mg/dL 0.5-1.4 19 Calcium 10.1 mg/dL 8.5-10.2 19 Total Protein 6.9 g/dL 6.0-8.0 19 Albumin 4.5 g/dL 3.6-4.9 19 Globulin 2.4 g/dL 2.0-3.5 19 A/G Ratio 1.9 Ratio 1.0-2.2 19 Total Bilirubin 0.5 mg/dL 0.1-1.3 19 Alkaline Phosphatase 73 U/L 24-140 19 Alt 23 U/L 3-42 19 Ast 18 U/L 8-42 19 Anion Gap 7 mmol/L 6-14 19 Jacinta Egfr >60 >60 19, 20 Non Jacinta Egfr >60 >60 19, 21 Laboratory test finding 12/29/2013 TSH 1.70 uIU/mL 0.34-5.60 19 Lipid 12/29/2013 Cholesterol 229 mg/dL High 50-199 19 Triglycerides 134 mg/dL 30-200 19 HDL 73 mg/dL 35-85 19, 22 Chol/ HDL Ratio 3.1 ratio Low 3.7-5.6 19 VLDL 27 mg/dL 2-29 19 LDL (Calc) 129 mg/dL High 20-99 19, 23 Laboratory test finding 12/29/2013 Vitamin B12 >1500 pg/mL High 180-914 19 Vit D,25 Hydroxy 43 ng/mL 31-100 19 Magnesium 2.1 mg/dL 1.5-2.7 19 CBC With Auto Diff 08/12/2012 WBC 6.7 K/uL 4.1-11.0 24 RBC 4.91 M/uL 4.00-5.40 24 Hemoglobin 14.4 gm/dL 12.0-16.0 24 Hematocrit 42.7 % 36.0-47.0 24 MCV 87.0 fL 80.0-97.0 24 MCH 29.4 pg 27.0-32.0 24 MCHC 33.8 g/dL 32.0-36.0 24 RDW 13.8 % 11.5-14.5 24 PLT Count 181 K/ul 140-400 24 Neutrophil 64.2 % 35.0-75.0 24 Lymphocyte 27.5 % 16.0-52.0 24 Monocyte 5.2 % 2.0-10.0 24 Eosinophil 2.2 % 0.0-5.0 24 Basophil 0.9 % 0.0-4.0 24 Abs Neutrophils 4.3 K/uL 2.1-8.0 24 Abs Lymphocytes 1.8 K/uL 0.8-5.5 24 Abs Monocytes 0.4 K/uL 0.1-1.0 24 Abs Eosinophils 0.1 K/uL 0.0-0.5 24 Abs Basophils 0.1 K/uL 0.0-0.3 24 Iron Panel 08/12/2012 Iron, Total 118 g/dL 50-170 24 Transferrin 280.9 mg/dL 203.0-362.0 24 Tibc (calc) 393 g/dL 261-478 24 % Iron Saturation 30.0 % 13.0-45.0 24 Laboratory test finding 08/12/2012 TSH 2.53 uIU/mL 0.34-5.60 24 Comprehensive Metabolic (CMP) 08/12/2012 Sodium 141 mmol/L 134-142 24 Potassium 4.7 mmol/L 3.5-5.2 24 Chloride 104 mmol/L 97-109 24 Carbon Dioxide 31 mmol/L 24-34 24 Glucose 87 mg/dL 70-105 24 BUN 19 mg/dL 6-26 24 Creatinine 0.9 mg/dL 0.5-1.4 24 Calcium 10.3 mg/dL High 8.5-10.2 24 Total Protein 7.3 g/dL 6.0-8.0 24 Albumin 4.7 g/dL 3.6-4.9 24 Globulin 2.6 g/dL 2.0-3.5 24 A/G Ratio 1.8 Ratio 1.0-2.2 24 Total Bilirubin 0.6 mg/dL 0.1-1.3 24 Alkaline Phosphatase 86 U/L 24-140 24 Alt 28 U/L 3-42 24 Ast 20 U/L 8-42 24 Anion Gap 11 mmol/L 6-14 24 Jacinta Egfr >60 >60 24, 25 Non Jacinta Egfr >60 >60 24, 26 Ebv Evaluation -RL 08/12/2012 Ebv Vca Igg @ POSITIVE (Neg) 24, 27 Ebv Vca Igm @ NEGATIVE (Neg) 24 Ebv Early Ag Igg @ NEGATIVE (Neg) 24 Ebv Nuclear Ag Igg @ POSITIVE (Neg) 24, 28 Laboratory test 12/18/2011 Cytology Fluid LABORATORY [facility] <SEE 29 finding Specimen NOTE> Laboratory test 12/18/2011 [facility] Pap LAB[facility]ATORY [facility] <SEE 30 finding NOTE> Laboratory test 12/18/2011 [facility] Pap Cancelled 31, 32 finding Rout Urine W/ Micro 12/18/2011 Color YELLOW 31 -RL Appearance CLEAR 31 Spec Grav Urine 1.006 (1.003-1.030) 31 PH Urine 8.0 High (5.0-7.5) 31 Leuk Esterase 2+ (Neg) 31 Nitrite Urine NEGATIVE (Neg) 31 Protein Urine NEGATIVE (Neg) 31 Glucose Urine NEGATIVE (Neg) 31 Ketone Urine NEGATIVE (Neg) 31 Urobilinogen 0.2 mg/dL (0-1.0) 31 Bilirubin Urine NEGATIVE (Neg) 31 Blood/HGB Urine TRACE (Neg) 31 Urine WBC 2 /HPF (0-8) 31 Urine RBC 3 /HPF (0-3) 31 Epithelial Cells NEGATIVE /HPF (Neg) 31 Bacteria NEGATIVE /HPF (Neg) 31 Hyaline Casts 0 /LPF (0-5) 31, 33 Comprehensive Metabolic (CMP) 12/18/2011 Sodium 140 mmol/L 134-142 31 Potassium 4.9 mmol/L 3.5-5.2 31 Chloride 102 mmol/L 97-109 31 Carbon Dioxide 32 mmol/L 24-34 31 Glucose 87 mg/dL 70-105 31 BUN 16 mg/dL 6-26 31 Creatinine 0.7 mg/dL 0.5-1.4 31 Calcium 10.1 mg/dL 8.5-10.2 31 BUN/CR 23 ratio High 12-20 31 Total Protein 7.2 g/dL 6.0-8.0 31 Albumin 4.5 g/dL 3.6-4.9 31 Globulin 2.7 g/dL 2.0-3.5 31 A/G Ratio 1.7 Ratio 1.0-2.2 31 Total Bilirubin 0.4 mg/dL 0.1-1.3 31 Alkaline Phosphatase 83 U/L 24-140 31 Alt 26 U/L 3-42 31 Ast 22 U/L 8-42 31 Anion Gap 11 mmol/L 6-14 31 Jacinta Egfr >60 >60 31, 34 Non Jacinta Egfr >60 >60 31, 35 CBC With Auto Diff 12/18/2011 WBC 6.7 K/uL 4.1-11.0 31 RBC 4.69 M/uL 4.00-5.40 31 Hemoglobin 13.6 gm/dL 12.0-16.0 31 Hematocrit 40.7 % 36.0-47.0 31 MCV 86.8 fL 80.0-97.0 31 MCH 28.9 pg 27.0-32.0 31 MCHC 33.4 g/dL 32.0-36.0 31 RDW 13.5 % 11.5-14.5 31 PLT Count 188 K/ul 140-400 31 Neutrophil 59.9 % 35.0-75.0 31 Lymphocyte 32.2 % 16.0-52.0 31 Monocyte 4.6 % 2.0-10.0 31 Eosinophil 2.5 % 0.0-5.0 31 Basophil 0.8 % 0.0-4.0 31 Abs Neutrophils 4.0 K/uL 2.1-8.0 31 Abs Lymphocytes 2.2 K/uL 0.8-5.5 31 Abs Monocytes 0.3 K/uL 0.1-1.0 31 Abs Eosinophils 0.2 K/uL 0.0-0.5 31 Abs Basophils 0.1 K/uL 0.0-0.3 31 Laboratory test finding 12/18/2011 Urine Culture Microbiology res <SEE 31, 36 NOTE> Cytology Fluid Specimen Cancelled 31, 37 Laboratory test 11/26/2011 Urine Culture Microbiology res <SEE 38 finding NOTE> Laboratory test 11/19/2011 TSH 2.53 uIU/mL 0.34-5.60 31 finding Free T4 0.66 ng/dL 0.50-1.60 31 Laboratory test finding 09/24/2011 Treponema Igg/Igm NEGATIVE (Neg) 39, 40 Vitamin B12 >1500 pg/mL High 180-914 39 Vit D,25 Hydroxy 54 ng/mL 31-100 39 Folate 19.8 ng/ml 5.9-24.8 39 TSH 3.46 uIU/mL 0.34-5.60 39 CBC With Auto Diff 09/24/2011 WBC 5.5 K/uL 4.1-11.0 39 RBC 4.70 M/uL 4.00-5.40 39 Hemoglobin 14.1 gm/dL 12.0-16.0 39 Hematocrit 40.3 % 36.0-47.0 39 MCV 85.7 fL 80.0-97.0 39 MCH 29.9 pg 27.0-32.0 39 MCHC 34.9 g/dL 32.0-36.0 39 RDW 13.2 % 11.5-14.5 39 PLT Count 194 K/ul 140-400 39 Neutrophil 64.6 % 35.0-75.0 39 Lymphocyte 27.6 % 16.0-52.0 39 Monocyte 4.5 % 2.0-10.0 39 Eosinophil 2.7 % 0.0-5.0 39 Basophil 0.6 % 0.0-4.0 39 Abs Neutrophils 3.6 K/uL 2.1-8.0 39 Abs Lymphocytes 1.5 K/uL 0.8-5.5 39 Abs Monocytes 0.2 K/uL 0.1-1.0 39 Abs Eosinophils 0.1 K/uL 0.0-0.5 39 Abs Basophils 0.0 K/uL 0.0-0.3 39 Laboratory test finding 09/24/2011 Methylmalonic Serum 0.10 umol/L 39, 41 Rast1 06/07/2011 D Pteronyssinus Conc <0.05 42 D Pteronyssinus Class Negative class 42 D Farinae Conc <0.05 42 D Farinae Class Negative class 42 Cat Epithelium Conc <0.05 42 Cat Epithelium Class Negative class 42 Dog Dander Conc <0.05 42 Dog Dander Class Negative class 42 Bermuda Grass Conc <0.05 42 [place] Grass Class Negative class 42 Vijay Conc <0.05 42 Vijay Class Negative class 42 House Dust Conc <0.05 42 House Dust Class Negative class 42 Cladosporium Conc <0.05 42 Cladosporium Class Negative class 42 Aspergillus Conc <0.05 42 Aspergillus Class Negative class 42 Alternaria Conc <0.05 42 Alternaria Class Negative class 42 [place]/ Maple Conc <0.05 42 [place]/ Maple Class Negative class 42 Dufur Conc <0.05 42 Dufur Class Negative class 42 Birch Conc <0.05 42 Birch Class Negative class 42 Ragweed Short Conc <0.05 42 Ragweed Short Class Negative class 42 Jarvis's Quarter Conc <0.05 42 Jarvis's Quarter Class Negative class 42 IgE,Total 65.0 IU/mL 0.0-108.0 42 Rast 2 06/07/2011 Conc <0.05 42 Class Negative class 42 Penicillium Conc <0.05 42 Penicillium Class Negative class 42 Rhizopus Conc <0.05 42 Rhizopus Class Negative class 42 Curvularia Conc <0.05 42 Curvularia Class Negative class 42 Mucor Conc <0.05 42 Mucor Class Negative class 42 [place] Conc <0.05 42 [place] Class Negative class 42 [place] Conc <0.05 42 [place] Class Negative class 42 Elm Conc <0.05 42 Elm Class Negative class 42 Mugwort Conc <0.05 42 Mugwort Class Negative class 42 American Plantain Conc <0.05 42 American Plantain Class Negative class 42 [place] Conc <0.05 42 [place] Class Negative class 42 CBC With Auto Diff 06/07/2011 WBC 7.6 K/uL 4.1-11.0 42 RBC 4.66 M/uL 4.00-5.40 42 Hemoglobin 14.0 gm/dL 12.0-16.0 42 Hematocrit 40.4 % 36.0-47.0 42 MCV 86.7 fL 80.0-97.0 42 MCH 30.1 pg 27.0-32.0 42 MCHC 34.7 g/dL 32.0-36.0 42 RDW 13.7 % 11.5-14.5 42 PLT Count 178 K/ul 140-400 42 Neutrophil 66.4 % 35.0-75.0 42 Lymphocyte 25.7 % 16.0-52.0 42 Monocyte 5.2 % 2.0-10.0 42 Eosinophil 2.2 % 0.0-5.0 42 Basophil 0.5 % 0.0-4.0 42 Abs Neutrophils 5.0 K/uL 2.1-8.0 42 Abs Lymphocytes 1.9 K/uL 0.8-5.5 42 Abs Monocytes 0.4 K/uL 0.1-1.0 42 Abs Eosinophils 0.2 K/uL 0.0-0.5 42 Abs Basophils 0.0 K/uL 0.0-0.3 42 Comprehensive Metabolic (CMP) 06/07/2011 Sodium 139 mmol/L 135-144 42 Potassium 5.1 mmol/L 3.6-5.2 42 Chloride 104 mmol/L 97-110 42 Carbon Dioxide 27 mmol/L 23-32 42 Glucose 77 mg/dL 70-105 42 BUN 15 mg/dL 6-22 42 Creatinine 1.1 mg/dL 0.5-1.3 42 Calcium 9.6 mg/dL 8.6-10.2 42 BUN/CR 14 ratio 12-20 42 Total Protein 6.5 g/dL 5.8-7.8 42 Albumin 3.9 g/dL 3.5-4.8 42 Globulin 2.6 g/dL 2.0-3.5 42 A/G Ratio 1.5 Ratio 1.0-2.2 42 Total Bilirubin 0.6 mg/dL 0.3-1.2 42 Alkaline Phosphatase 66 U/L 24-140 42 Alt 24 U/L 5-45 42 Ast 24 U/L 12-40 42 Anion Gap 13 mmol/L 8-16 42 Non Jacinta Egfr 50 Low >60 42, 43 Jacinta Egfr >60 >60 42, 44 Laboratory test finding 06/07/2011 TSH 3.67 uIU/mL 0.34-5.60 42 CBC With Auto Diff 03/09/2010 WBC 5.6 [...] 8-16 GFR Calculation > 60 mL/min 60-175 45 GFR For > 60 mL/min 60-175 46 Lipid Panel 03/09/2010 Cholesterol 183 mg/dL 50-199 47 Triglycerides 69 mg/dL 10-150 HDL 55 mg/dL 35-85 48 Chol/HDL Ratio 3.3 Ratio Low 3.7-5.6 49 VLDL 14 mg/dL 2-29 LDL (Calc) 114 mg/dL 20-129 50 Laboratory test finding 03/09/2010 TSH 2.14 uIU/ml 0.34-5.60 Vitamin D, 25 Hydroxy 58 ng/mL 31-100 Urine Microscopic, Only -RL 03/08/2010 Urine WBC -LA 3-5 /HPF (0-5) 51 Urine RBC -LA 0-2 /HPF (0-2) 51 Epithelial Cells -LA 1+ /HPF 51 Bacteria -LA 1+ /HPF 51, 52 Laboratory test finding 03/08/2010 Vaginitis Direct (SEE NOTE) 51, 53 Test(Affirm) -LA Urinalysis -RL 03/08/2010 Color -LA YELLOW 51 Appearance -LA CLEAR 51 Specific [place] -LA 1.003 1.003-1.030 51 Leukocyte Esterase -LA TRACE (Neg) 51 Nitrite -LA NEGATIVE (Neg) 51 PH Urine -LA 8.0 High 5.0-7.5 51 Protein Urine-LA NEGATIVE (Neg) 51 Glucose Urine -LA NEGATIVE (Neg) 51 Ketone Urine -LA NEGATIVE (Neg) 51 Urobilinogen -LA 0.2 mg/dL 0-1.0 51 Bilirubin Urine -LA NEGATIVE (Neg) 51 Blood/HGB Urine-RL TRACE (Neg) 51, 54 Laboratory test finding 03/08/2010 Urine Culture NO GROWTH 51 Laboratory test finding 04/25/2009 Urine Culture NO GROWTH Laboratory test finding 12/28/2008 Urine Culture NO GROWTH Basic (BMP) 12/17/2008 Sodium DELETED mmol/L 135-144 55 Potassium DELETED mmol/L 3.6-5.2 55 Chloride DELETED mmol/L 97-110 55 Carbon Dioxide DELETED mmol/L 23-33 55 Glucose DELETED mg/dL 70-105 55 BUN DELETED mg/dL 6-22 55 Creatinine DELETED mg/dL 0.5-1.3 55 BUN/CR DELETED Ratio 12.0-20.0 55 Anion Gap DELETED mmol/L 8-16 55 Calcium DELETED mg/dL 8.6-10.2 55 GFR Calculation DELETED mL/min 60-175 55, 56 GFR For DELETED mL/min 60-175 55, 57 Laboratory test finding 12/17/2008 Vitamin B12 570 pg/mL 180-914 55, 58 Comment SAMPLE CONTAMINA <SEE NOTE> 55, 59 Laboratory test finding 12/16/2008 Urine Culture NO GROWTH 60 CBC With Auto Diff 12/16/2008 WBC 7.0 K/ul 4.0-10.9 60 RBC 5.00 M/ul 4.20-5.40 60 Hemoglobin 14.9 GM/dl 12.5-16.0 60 Hematocrit 43.0 % 36.0-47.0 60 MCV 86.0 FL 80.0-97.0 60 MCH 29.8 pg 27.0-31.0 60 MCHC 34.6 g/dL 32.0-36.0 60 RDW 13.6 % 11.5-14.5 60 Platelet Count 198 K/ul 140-440 60 Neutrophils 64.4 % 50-70 60 Lymphocytes 29.3 % 20-44 60 Monocytes 4.1 % 2-9 60 Eosinophil 1.7 % 0-4 60 Basophil 0.5 % 0-2 60 Absolute Neutrophils 4.5 K/ul 2.05-7.63 60 Absolute Lymphocytes 2.1 K/ul 0.8-4.8 60 Absolute Monocytes 0.3 K/ul 0.1-1.0 60 Absolute Eosinophils 0.1 K/ul 0.1-0.5 60 Absolute Basophils 0.0 K/ul 0.0-0.3 60 Hematology Comment (Comm2) N/A 60 Laboratory test finding 10/06/2008 Cytology Fluid Specimen - (SEE NOTE) 61, 62 LA Urine Culture NO GROWTH 61 Basic (BMP) 09/23/2008 Sodium 138 mmol/L 135-144 Potassium 5.1 mmol/L 3.6-5.2 63 Chloride 103 mmol/L 97-110 Carbon Dioxide 29 mmol/L 23-33 Glucose 95 mg/dL 70-105 BUN 17 mg/dL 6-22 Creatinine 0.7 mg/dL 0.5-1.3 BUN/CR 24 Ratio High 12.0-20.0 Anion Gap 11 mmol/L 8-16 Calcium 10.0 mg/dL 8.6-10.2 GFR Calculation > 60 mL/min 64 GFR For > 60 mL/min 65 Lipid Panel 09/23/2008 Cholesterol 242 mg/dL High 50-199 Triglycerides 90 mg/dL 10-150 HDL 66 mg/dL 35-85 66 Chol/HDL Ratio 3.7 Ratio 67 VLDL 18 mg/dL LDL (Calc) 158 mg/dL High 20-129 68 Urinalysis -RL 09/23/2008 Color -LA YELLOW Appearance -LA CLEAR Specific [place] -LA 1.023 1.003-1.030 Leukocyte Esterase -LA TRACE (Neg) Nitrite -LA NEGATIVE (Neg) PH Urine -LA 6.5 5.0-7.5 Protein Urine-LA NEGATIVE (Neg) Glucose Urine -LA NEGATIVE (Neg) Ketone Urine -LA NEGATIVE (Neg) Urobilinogen -LA 0.2 mg/dL 0-1.0 Bilirubin Urine -LA NEGATIVE (Neg) Blood/HGB Urine-RL 1+ (Neg) 69 Urine Microscopic, Only -RL 09/23/2008 Urine WBC -LA NONE SEEN /HPF (0-5 ) Urine RBC -LA * 3-5 /HPF (0-2) 70 Laboratory test finding 09/23/2008 Vitamin D, 25 41 ng/mL 31-100 Hydroxy Laboratory test finding 01/23/2008 Urine Culture <10,000 CFU/ML R 71 <SEE NOTE> Laboratory test finding 06/17/2007 Urine Culture NO GROWTH 72 Laboratory test finding 03/19/2007 Urine Culture NO [...] GFR Black Female 83 GFR Guidelines 0 73 Laboratory test finding 08/28/2006 Vitamin D, 25 Hydroxy 36 ng/mL 19-58 TSH 2.51 uIU/ml 0.50-6.00 PTH,Intact With 08/28/2006 PTH Intact-LA 7.1 pmol/L (0.7-5.1) 74 Calcium -RL Laboratory test 08/28/2006 Ionized Calcium - LA 5.12 mg/dL (4.64-5.28) 74, 75 finding Calcium 9.8 mg/dL (8.4-10.2) 74 Urinalysis -RL 06/21/2006 Color -LA YELLOW Appearance -LA CLEAR Specific [place] -LA 1.010 (1.003-1.030) Leukocyte Esterase -LA 1+ (Neg) Nitrite -LA NEGATIVE (Neg) PH Urine -LA 8 (5.0-7.5) Protein Urine-LA NEGATIVE (Neg) Glucose Urine -LA NEGATIVE (Neg) Ketone Urine -LA NEGATIVE (Neg) Urobilinogen -LA NORMAL (Norm) Bilirubin Urine -LA NEGATIVE (Neg) Blood/HGB Urine-RL 1+ (Neg) 76 Urine Microscopic, Only -RL 06/21/2006 Urine WBC -LA 3-5 /HPF (0-5) Urine RBC -LA 0-2 /HPF (0-2) Epithelial Cells -LA 2+ /HPF Bacteria -LA 1+ /HPF Laboratory test finding 05/27/2006 TSH 3.60 uIU/ml 0.50-6.00 77 Lipid Panel 05/27/2006 Cholesterol 252 mg/dL High 50-199 77 Triglycerides 169 mg/dL High 10-150 77 HDL 68 mg/dL 35-85 77 Chol/HDL Ratio 3.7 Ratio 77 VLDL 34 mg/dL 77 LDL (Calc) 150 mg/dL High 20-129 77 CMP 05/27/2006 Sodium 144 mmol/L 135-144 77 Potassium 5.4 mmol/L High 3.6-5.2 77, 78 Chloride 105 mmol/L 97-110 77 Carbon Dioxide 29 mmol/L 23-33 77 Glucose 86 mg/dL 70-105 77 BUN 10 mg/dL 6-22 77 Creatinine 0.9 mg/dL 0.5-1.3 77 BUN/CR 11 Ratio Low 12.0-20.0 77 Calcium 10.3 mg/dL High 8.6-10.2 77 Total Protein 7.0 g/dL 5.8-7.8 77 Albumin 4.1 g/dL 3.5-4.8 77 Globulin 2.9 g/dL 2.0-3.5 77 A/G Ratio 1.4 Ratio 1.0-2.2 77 Total Bilirubin 0.9 mg/dL 0.3-1.2 77 Alkaline Phosphatase 92 U/L 24-140 77 Alt 29 U/L 4-45 77 Ast 28 U/L 12-40 77 Anion Gap 15 mmol/L 8-16 77 GFR White Male 92 77 GFR White Female 68 77 GFR Black Male 112 77 GFR Black Female 83 77 GFR Guidelines 0 77, 79 CBC With Auto Diff 05/27/2006 WBC 6.5 K/ul 4.0-10.9 77 RBC 4.78 M/ul 4.20-5.40 77 Hemoglobin 13.2 GM/dl 12.5-16.0 77 Hematocrit 41.9 % 36.0-47.0 77 MCV 87.7 FL 80.0-97.0 77 MCH 27.7 pg 27.0-31.0 77 MCHC 31.6 g/dL Low 32.0-36.0 77 RDW 13.0 % 11.5-14.5 77 Platelet Count 228 K/ul 140-440 77 Neutrophils 69.7 % 50-70 77 Lymphocytes 24.3 % 20-44 77 Monocytes 2.3 % 2-9 77 Eosinophil 3.1 % 0-4 77 Basophil 0.6 % 0-2 77 Absolute Neutrophils 4.6 K/ul 2.05-7.63 77 Absolute Lymphocytes 1.6 K/ul 0.8-4.8 77 Absolute Monocytes 0.1 K/ul 0.1-1.0 77 Absolute Eosinophils 0.2 K/ul 0.1-0.5 77 Absolute Basophils 0.0 K/ul Low 0.1-0.3 77 Laboratory test finding 05/27/2006 P[place]ear, Thinprep - SEE REFERENCE LA < SEE 80 LA NOTE> Urinalysis -RL 05/22/2006 Color -LA YELLOW Appearance -LA CLEAR Specific [place] -LA 1.010 (1.003-1.030) Leukocyte Esterase -LA NEGATIVE [...] Color -LA YELLOW Appearance -LA CLEAR Specific [place] -LA 1.010 Leukocyte Esterase -LA TRACE Nitrite -LA NEGATIVE PH Urine -LA 7.0 Protein Urine-LA NEGATIVE Glucose Urine -LA NEGATIVE Ketone Urine -LA NEGATIVE Urobilinogen -LA NORMAL Bilirubin Urine -LA NEGATIVE Blood Urine -LA 1+ 81 Yuriy Farmer Acute Antibody 07/11/2005 Ebv Ab Vca, IgM Negative AU 0-19 82 Panel-Centx Ebv Early Antigen Ab, IgG Positive Negative 83 Ebv Ab Vca, IgG 105 AU High 0-19 84 Ebv Nuclear Antigen Ab, IgG >200 AU 0-19 85 CBC 07/11/2005 WBC 6.1 K/ul 4.1-10.9 RBC [...] 16 Ratio 12.0-20.0 Calcium 10.2 mg/dL 8.6-10.2 86 Total Protein 7.0 g/dL 5.8-7.8 Albumin 4.0 [...] 18.9 SEC High 10.5-12.2 Inr 2.86 2.0-3.0 87 PT And Inr 02/14/2004 Prothrombin Time 29.0 SEC High 10.5-12.2 88 Inr 6.87 High 2.0-3.0 89 Lipid Panel 02/07/2004 Cholesterol 222 mg/dL High 50-199 Triglycerides 89 mg/dL 30-200 HDL 64 mg/dL 35-85 Chol/HDL Ratio 3.5 Ratio VLDL 18 mg/dL LDL (Calc) 140 mg/dL High 20-129 PT And Inr 02/07/2004 Prothrombin Time 11.0 SEC 10.5-12.2 Inr 0.95 Low 2.0-3.0 90 CMP 02/03/2004 Sodium 142 mmol/L 135-145 Potassium [...] SEC High 10.5-12.2 Inr 1.50 Low 2.0-3.0 91 PT And Inr 01/17/2004 Prothrombin Time 12.2 SEC 10.5-12.2 Inr 1.17 Low 2.0-3.0 92 PT And Inr 01/05/2004 Prothrombin Time 11.3 SEC 10.5-12.2 Inr 1.00 Low 2.0-3.0 93 PT And Inr 01/03/2004 Prothrombin Time 11.3 SEC 10.5-12.2 Inr 1.00 Low 2.0-3.0 94 Laboratory test finding 10/05/2003 Rapid Plasma Reagin [...] Folate result gr <SEE NOTE> ng/ml 3.0-16.0 95 CBC 09/28/2003 WBC 8.9 K/ul 4.1-10.9 RBC [...] finding 09/28/2003 TSH 2.39 uIU/ml 0.50-6.00 1 This sample is drawn by:NB. 2 Per NCEP ATP III Guidelines: Results lower than 40 mg/dL are suggestive of increased risk for coronary artery disease. Results > or=to 60 mg/dL are considered a negative risk factor. 3 Per NCEP ATP III Guidelines: Normal Population <130 Patients with medical conditions: CHD/DM Optimal: <100 Borderline high: 130-159 High: 160-189 Very high: >189 4 Updated reference range on new analyzer 5 Updated reference range on new analyzer 6 Concerning GFR Guidelines for Americans: Normal function or mild renal disease, if clinically at risk: >/=60 mL/min Moderately decreased: 30-59 Severely decreased: 15-29 Renal failure: <15 7 Concerning GFR Guidelines: Normal function or mild [...] drugs that are excreted by the kidneys. 8 Updated reference range on new analyzer 9 5.3 Specimen Slightly Hemolyzed 10 Concerning GFR Guidelines for Americans: Normal [...] that are excreted by the kidneys. 12 Microbiology results SOURCE MIDU FINAL RESULT No growth 13 This sample is drawn by:BR Fastin hours This sample is drawn by:BR Fast[employer] hours 14 TROPONIN LEVELS TWO TIMES THE UPPER LIMIT OF NORMAL ARE MORE PREDICTIVE OF MYOCARDIAL INJURY THAN LESSER ELEVATIONS. ([facility] 361:9, 2009) Unless otherwise specified, testing performed by [facility] [employer] [facility] [place] [address] 15 Unless otherwise specified, testing performed by [facility] [employer] [facility] [place] [address] 16 This sample is drawn by:BR Fastin hours This sample is drawn by:BR Fastin hours Fastin hours Fastin hours 17 Concerning GFR Guidelines for Americans: Normal function or mild renal disease, if clinically at risk: >/=60 mL/min Moderately decreased: 30-59 Severely decreased: 15-29 Renal failure: <15 18 Concerning GFR Guidelines: Normal function or mild [...] drugs that are excreted by the kidneys. 19 This sample is drawn by:CT 20 Concerning GFR Guidelines for Americans: Normal [...] that are excreted by the kidneys. 22 Per NCEP ATP III Guidelines: Results lower than 40 mg/dL are suggestive of increased risk for coronary artery disease. Results > or=to 60 mg/dL are considered a negative risk factor. 23 Per NCEP ATP III Guidelines: Normal Population <130 Patients with medical conditions: CHD/DM Optimal: <100 Borderline high: 130-159 High: 160-189 Very high: >189 24 This sample is drawn by:RAMIRO 25 Concerning GFR Guidelines for Americans: Normal function or mild renal disease, if clinically at risk: >/=60 mL/min Moderately decreased: 30-59 Severely decreased: 15-29 Renal failure: <15 26 Concerning GFR Guidelines: Normal function or mild [...] drugs that are excreted by the kidneys. 27 May indicate a current or previous infection. 28 May indicate a current or previous infection. Unless otherwise specified, testing performed by [facility] [address] [place] [id number] 29 Is That [employer] [facility] [employer]. [address] [place] [address] MISCELLANEOUS CYTOLOGY REPORT Accession Number: [id number] Source of Specimen(s): A: Urine, Voided Clinical Diagnosis and History: Gross Description: Urine, Voided: 30 cc clear yellow fluid. Final Diagnosis: Specimen Adequacy Satisfactory Final Diagnosis NEGATIVE FOR MALIGNANCY Erythrocytes and scattered bacteria noted. Reported: 12/19/2011 Electronically Signed Out By Anam Coburn M.D. [employer] Supervisor: Rhianna JAVIER(ASCP) [facility] 30 [employer] [facility] [employer]. [address] [place] [address] GYNECOLOGIC CYTOLOGY REPORT Accession Number: [id number] Source of Specimen(s): A: [employer] Vaginal/ Cervical/ [...] Reported: 12/20/2011 Electronically Signed Out By Yesi JAVIER(ASCP) [facility] da 31 This sample is drawn by:MAGDA. 32 SEE REFERENCE LAB REPORT 33 Unless otherwise specified, testing performed by [facility] [address] [place] [id number] 34 Concerning GFR Guidelines for Americans: Normal function or mild renal disease, if clinically at risk: >/=60 mL/min Moderately decreased: 30-59 Severely decreased: 15-29 Renal failure: <15 35 Concerning GFR Guidelines: Normal function or mild [...] drugs that are excreted by the kidneys. 36 Microbiology results SOURCE URINE FINAL RESULT No growth 37 SEE REFERENCE LAB REPORT 38 Microbiology results SOURCE URINE FINAL RESULT No growth 39 This sample is drawn by:[employer] 40 Unless otherwise specified, testing performed by [facility] [address] [place] [address] 41 Reference range: 0.00 to 0.40 Performed by [employer], [address] [place] [id number] [email or web address], Gladys Holbrook MD, Lab. Director Unless otherwise specified, testing performed by [employer] [address] [place] [address] 42 This sample is drawn by:RAMIRO 43 Concerning GFR Guidelines: Normal function or mild [...] drugs that are excreted by the kidneys. 44 Concerning GFR Guidelines for Americans: Normal function or mild renal disease, if clinically at risk: >/=60 mL/min Moderately decreased: 30-59 Severely decreased: 15-29 Renal failure: <15 45 Concerning GFR GUIDELINES: Normal Function or Mild [...] drugs that are excreted by the kidneys. 46 Concerning GFR GUIDELINES: Normal Function or Mild Renal Disease, if clinically at risk: >/=60mL/min Moderately decreased: 30-59 Severely decreased: 15-29 Renal Failure: <15 47 The difference between the most recent result of 242 and the current result of 183 exceeds the absolute delta value of 50 as defined for this test. 48 PER NCEP ATP III GUIDELINES: RESULTS LOWER THAN 40 MG/DL ARE SUGGESTIVE OF INCREASED RISK FOR CORONARY ARTERY DISEASE. RESULTS > OR=TO 60 MG/DL ARE CONSIDERED A NEGATIVE RISK FACTOR. 49 INTERPRETATION OF CHOL-HDL RATIO CHD RISK FEMALE MALE VERY HIGH >8.3 >14.3 HIGH 5.6 - 8.3 6.7 - 14.3 AVERAGE 3.7 - 5.6 4.0 - 6.7 BELOW AVERAGE 2.5 - 3.7 2.7 - 4.0 PROTECTED <2.5 <2.7 50 PER NCEP ATP III GUIDELINES: OPTIMAL: <100 NEAR OPTIMAL: 100 - 129 BORDERLINE HIGH: 130 - 159 HIGH: 160 - 189 VERY HIGH: >189 51 This sample is drawn by:ROBBIE 52 Unless otherwise specified, testing performed by [place] [address] 53 SPECIMEN DESCRIPTION VAGINAL SPECIMEN RESULT NEGATIVE FOR TRICHOMONAS VAGINALIS NEGATIVE FOR GARDNERELLA VAGINALIS NEGATIVE FOR ANTHONY SPECIES REPORT STATUS FINAL 03/08/2010 Unless otherwise specified, testing performed [place] [address] 54 Unless otherwise specified, testing performed by [facility] [place] [address] 55 LAB DRAW KSLPN Test deleted. Reason: CONTAMINATED SPECIMEN LAB DRAW KSLPN LAB DRAW KSLPN 56 Concerning GFR GUIDELINES: Normal Function or Mild [...] drugs that are excreted by the kidneys. 57 Concerning GFR GUIDELINES: Normal Function or Mild Renal Disease, if clinically at risk: >/=60mL/min Moderately decreased: 30-59 Severely decreased: 15-29 Renal Failure: <15 58 SPECIMEN CONTAMINATED WITH POTASSIUM EDTA. THIS TEST PREVIOUSLY HAD A RESULT OF '570' WHICH WAS RELEASED 12/17/08 07: 05PM. IT WAS SUBSEQUENTLY UNRELEASED 12/22/08 10:47AM BY RDW. Result changed from 570 to 59 SAMPLE CONTAMINATED WITH POTASSIUM EDTA. UNABLE TO ANALYZE CHEMISTRY TESTS 60 This sample is drawn by:ARLEEN HALL 61 This sample is drawn by:MAGDA 62 LABORATORY [employer] [facility] [employer]. [address] [place] [id number] MISCELLANEOUS CYTOLOGY REPORT Accession Number: [id number] Source of Specimen(s): A: Urine, Voided Clinical Diagnosis and History: 595.0 Gross Description: Urine, Voided: 40 cc cloudy yellow fluid. Final Diagnosis: Specimen Adequacy Satisfactory Final Diagnosis NEGATIVE FOR MALIGNANCY Squamous cells and urothelial cells with scattered neutrophils and red blood cells. Reported: 10/07/2008 Electronically Signed Out By Neptali Morocho MD [employer] Supervisor: Kia Knapp SCT(ASCP)([facility]) [facility] ICD9 Code: 595.0 Unless otherwise specified, testing performed by [facility] [address] [address] 63 The difference between the most recent result of 4.3 and the current result of 5.1 exceeds the absolute delta value of 0.5 as defined for this test. 64 Concerning GFR GUIDELINES: Normal Function or Mild [...] drugs that are excreted by the kidneys. 65 Concerning GFR GUIDELINES: Normal Function or Mild Renal Disease, if clinically at risk: >/=60mL/min Moderately decreased: 30-59 Severely decreased: 15-29 Renal Failure: <15 66 PER NCEP ATP III GUIDELINES: RESULTS LOWER THAN 40 MG/DL ARE SUGGESTIVE OF INCREASED RISK FOR CORONARY ARTERY DISEASE. RESULTS > OR=TO 60 MG/DL ARE CONSIDERED A NEGATIVE RISK FACTOR. 67 INTERPRETATION OF CHOL-HDL RATIO CHD RISK FEMALE MALE VERY HIGH >8.3 >14.3 HIGH 5.6 - 8.3 6.7 - 14.3 AVERAGE 3.7 - 5.6 4.0 - 6.7 BELOW AVERAGE 2.5 - 3.7 2.7 - 4.0 PROTECTED <2.5 <2.7 68 PER NCEP ATP III GUIDELINES: OPTIMAL: <100 NEAR OPTIMAL: 100 - 129 BORDERLINE HIGH: 130 - 159 HIGH: 160 - 189 VERY HIGH: >189 69 Unless otherwise specified, testing performed by [facility] [address] [place] [address] 70 Unless otherwise specified, testing performed by [facility] [address] [place] [address] 71 <10,000 CFU/ML REPRESENTING URETHRAL INO 72 EX GOLD 73 Normal Function or Mild Renal Disease, if [...] drugs that are excreted by the kidneys. 74 DUP TEST Test deleted. Reason: DUP TEST DUP TEST 75 IONIZED CALCIUM NORMALIZED TO PH 7.40 AND 37 DEGREES C. 76 Test deleted. Reason: NO SPECIMEN REC'V 77 FASTING 78 NO VISIBLE HEMOLYSIS 79 Normal Function or Mild Renal Disease, [...] that are excreted by the kidneys. 80 SEE REFERENCE LAB REPORT 81 MICROSCOPIC: WBC: 0-2 RBC: 0-2 EPITH: 1+ 82 Negative <20 Positive >19 83 Positive results suggest recent or chronic-active infection. Anti-EA becomes undetectable weeks to months after onset. 84 Negative <20 Positive >19 85 Negative <20 Positive >19 86 RESULT CONFIRMED 87 IT MUST BE STRESSED THAT THE INR IS SPECIFICALLY INTENDED FOR ASSESSING PATIENTS STABILIZED ON LONG-TERM ANTICOAGULANT THERAPY. THE RECOMMENDED THERAPEUTIC RANGE FOR: MOST PATIENTS ON COUMADIN INR: 2.0 - 3.0 PROPHYLAXIS/TREATMENT OF VENOUS THROMBOSIS PROPHYLAXIS/TREATMENT OF PULMONARY EMBOLIS PROSTHETIC HEART VALVES INR: 2.5 - 3.5 RECURRENT SYSTEMIC EMBOLISM 88 CONFIRMED, CALLED, AND FAXED. 89 IT MUST BE STRESSED THAT THE INR IS SPECIFICALLY INTENDED FOR ASSESSING PATIENTS STABILIZED ON LONG-TERM ANTICOAGULANT THERAPY. THE RECOMMENDED THERAPEUTIC RANGE FOR: MOST PATIENTS ON COUMADIN INR: 2.0 - 3.0 PROPHYLAXIS/TREATMENT OF VENOUS THROMBOSIS PROPHYLAXIS/TREATMENT OF PULMONARY EMBOLIS PROSTHETIC HEART VALVES INR: 2.5 - 3.5 RECURRENT SYSTEMIC EMBOLISM 90 IT MUST BE STRESSED THAT THE INR IS SPECIFICALLY INTENDED FOR ASSESSING PATIENTS STABILIZED ON LONG-TERM ANTICOAGULANT THERAPY. THE RECOMMENDED THERAPEUTIC RANGE FOR: MOST PATIENTS ON COUMADIN INR: 2.0 - 3.0 PROPHYLAXIS/TREATMENT OF VENOUS THROMBOSIS PROPHYLAXIS/TREATMENT OF PULMONARY EMBOLIS PROSTHETIC HEART VALVES INR: 2.5 - 3.5 RECURRENT SYSTEMIC EMBOLISM 91 IT MUST BE STRESSED THAT THE INR IS SPECIFICALLY INTENDED FOR ASSESSING PATIENTS STABILIZED ON LONG-TERM ANTICOAGULANT THERAPY. THE RECOMMENDED THERAPEUTIC RANGE FOR: MOST PATIENTS ON COUMADIN INR: 2.0 - 3.0 PROPHYLAXIS/TREATMENT OF VENOUS THROMBOSIS PROPHYLAXIS/TREATMENT OF PULMONARY EMBOLIS PROSTHETIC HEART VALVES INR: 2.5 - 3.5 RECURRENT SYSTEMIC EMBOLISM 92 IT MUST BE STRESSED THAT THE INR IS SPECIFICALLY INTENDED FOR ASSESSING PATIENTS STABILIZED ON LONG-TERM ANTICOAGULANT THERAPY. THE RECOMMENDED THERAPEUTIC RANGE FOR: MOST PATIENTS ON COUMADIN INR: 2.0 - 3.0 PROPHYLAXIS/TREATMENT OF VENOUS THROMBOSIS PROPHYLAXIS/TREATMENT OF PULMONARY EMBOLIS PROSTHETIC HEART VALVES INR: 2.5 - 3.5 RECURRENT SYSTEMIC EMBOLISM 93 IT MUST BE STRESSED THAT THE INR IS SPECIFICALLY INTENDED FOR ASSESSING PATIENTS STABILIZED ON LONG-TERM ANTICOAGULANT THERAPY. THE RECOMMENDED THERAPEUTIC RANGE FOR: MOST PATIENTS ON COUMADIN INR: 2.0 - 3.0 PROPHYLAXIS/TREATMENT OF VENOUS THROMBOSIS PROPHYLAXIS/TREATMENT OF PULMONARY EMBOLIS PROSTHETIC HEART VALVES INR: 2.5 - 3.5 RECURRENT SYSTEMIC EMBOLISM 94 IT MUST BE STRESSED THAT THE INR IS SPECIFICALLY INTENDED FOR ASSESSING PATIENTS STABILIZED ON LONG-TERM ANTICOAGULANT THERAPY. THE RECOMMENDED THERAPEUTIC RANGE FOR: MOST PATIENTS ON COUMADIN INR: 2.0 - 3.0 PROPHYLAXIS/TREATMENT OF VENOUS THROMBOSIS PROPHYLAXIS/TREATMENT OF PULMONARY EMBOLIS PROSTHETIC HEART VALVES INR: 2.5 - 3.5 RECURRENT SYSTEMIC EMBOLISM 95 Folate result greater than 23.0 ng/ml Procedures Date CPT Code Description Status Comment 05/13/2018 13419 Electrocardiogram Complete Completed 02/07/2018 Colonoscopy Completed Document: 02/07/18 - Colonoscopy 01/05/2014 Bone Mineral Density Test Completed 12/29/2013 70846 Electrocardiogram Complete Completed 12/29/2013 96416 Electrocardiogram Complete Completed 12/18/2011 40864 Electrocardiogram Complete Completed 11/26/2011 Colonoscopy Completed 11/29/2010 11451 Measure Blood Oxygen Level Completed Single Determination 06/26/2010 Colonoscopy Completed 12/17/2008 05058 Charge Back Completed 09/16/2008 23557 Electrocardiogram Complete Completed 01/23/2008 59788 Admin Of Inj Completed (Therapeutic,Prophylactic Or Diagnostic Subq Or Intr 12/03/2007 24234 Admin Of Inj Completed (Therapeutic,Prophylactic Or Diagnostic Subq Or Intr 06/12/2007 67626 Admin Of Inj Completed (Therapeutic,Prophylactic Or Diagnostic Subq Or Intr 03/26/2007 99546 Electrocardiogram Complete Completed 02/05/2007 59881 Admin Of Inj Completed (Therapeutic,Prophylactic Or Diagnostic Subq Or Intr 07/17/2006 24609 Admin Of Inj Completed (Therapeutic,Prophylactic Or Diagnostic Subq Or Intr 06/21/2006 31365 Admin Of Inj Completed (Therapeutic,Prophylactic Or Diagnostic Subq Or Intr 05/09/2006 85352 Admin Of Inj Completed (Therapeutic,Prophylactic Or Diagnostic Subq Or Intr 09/12/2005 67640 Admin Of Inj Completed (Therapeutic,Prophylactic Or Diagnostic Subq Or Intr 04/04/2005 87629 Deleted Code Use 50634 Completed 12/26/2004 69743 Electrocardiogram Complete Completed 12/06/2004 14384 Electrocardiogram Complete Completed 10/04/2004 39217 Deleted Code Use 15716 Completed 03/08/2004 56914 Electrocardiogram Complete Completed 02/03/2004 40059 Deleted Code Use 72223 Completed 01/25/2004 66185 Deleted Code Use 99821 Completed 01/25/2004 57204 Electrocardiogram Complete Completed 01/20/2004 13834 Remove Foreign Body Completed Subcutaneous Simple 01/03/2004 07614 Electrocardiogram Complete Completed 01/03/2004 31052 Deleted Code Use 34228 Completed 01/03/2004 52517 Remove Foreign Body Completed Subcutaneous Simple 12/27/2003 33864 Deleted Code Use 07150 Completed 12/13/2003 49149 Deleted Code Use 18586 Completed 12/06/2003 25162 Deleted Code Use 37666 Completed 11/26/2003 53770 Duplex Scan Extracranial Completed Arteries, Complete Bilateral Study Encounters Type Date Location Provider CPT E/M Dx Office Visit 01/08/2018 11:15[place] [address] M54.2 F07.81 Z12.11 R26.89 Office Visit 02/22/2017 10:45a Marlee Fournier MD G0439 Z00.01 D01.3 Z12.11 Z12.31 J45.20 R19.7 E55.9 K21.9 H81.10 F07.81 Z11.59 S60.945A N95.2 Office Visit 01/23/2017 2:40[place] [address] R05 R07.9 Office Visit 01/10/2016 4:00[place] [address] R87.619 D01.3 S06.0x0D Z12.31 Office Visit 06/08/2015 1:20[place] [address] S06.0x0D Office Visit 01/12/2015 12:40p Crystal Thacker RN [place] [employer] 66217 786.50 786.09 493.00 790.6 Office Visit 10/07/2014 1:40p Crystal Thacker RN [employer] 90826 466.0 Office Visit 04/05/2014 11:40[place] [address] 230.5 Office Visit 02/10/2014 10:00[place] [address] 230.5 780.93 Office Visit 12/29/2013 1:00p Amira Moore MD G0439 230.5 296.32 V81.2 268.9 427.31 V70.0 V79.0 723.1 493.00 477.0 780.93 V77.1 Office Visit 07/27/2013 4:15[place] [address] 723.1 724.2 Office Visit 02/05/2013 10:20a Crystal Thacker RN [facility] 77815 723.1 916.0 Office Visit 10/07/2012 3:20p Crystal Thacker RN [place] [facility] 10051 373.12 Office Visit 08/12/2012 12:00p Crystal Thacker RN [facility] 02172 780.79 241.0 627.3 959.5 Office Visit 08/12/2012 12:00p Crystal Thacker RN [facility] 55059 780.79 723.1 723.1 241.0 627.3 Office Visit 02/19/2012 1:15p [place] [address] 296.32 154.2 241.0 278.02 723.1 Office Visit 12/18/2011 2:00p [place] [address] V72.31 599.70 296.32 708.2 V76.10 V82.81 V04.81 154.2 V06.1 V72.81 627.3 368.9 723.1 241.0 Office Visit 09/21/2011 1:30p [place] [address] 296.32 780.4 995.3 780.93 281.1 V76.10 153.9 Office Visit 06/07/2011 2:00p Crystal Thacker RN [facility] 47932 V41.1 995.3 272.0 Office Visit 11/29/2010 1:15p Yadira Hoskins, N.P. 22560 466.0 382.00 Office Visit 03/08/2010 11:15[place] [address] 595.0 723.1 616.10 783.1 Office Visit 01/16/2010 2:15p Yadira Hoskins, N.P. 61706 780.4 787.03 Office Visit 04/25/2009 11:15a Yadira Hoskins, N.P. 49160 595.0 Office Visit 12/30/2008 1:50p [place] [address] 786.09 Office Visit 12/28/2008 3:50[place] [address] 599.0 Office Visit 12/16/2008 2:10p [place] [address] 079.89 Office Visit 09/16/2008 2:10[place] [address] 281.0 296.32 599.0 Office Visit 01/23/2008 2:00p [place] [address] 281.0 719.41 569.0 595.0 296.32 733.09 327.23 Office Visit 12/03/2007 2:00[place] [address] 787.01 719.41 786.51 Office Visit 09/12/2007 10:00a Yadira Hoskins, N.P. 07651 726.10 Office Visit 06/17/2007 1:00p Yadira Hoskins, N.P. 84788 599.0 Office Visit 03/26/2007 11:00[place] [address] 296.32 724.2 281.0 525.9 786.51 Office Visit 02/05/2007 11:30[place] [address] 595.0 296.32 327.23 836.2 724.2 281.0 Office Visit 08/28/2006 1:00p [place] [address] 296.32 847.0 564.00 275.42 847.2 477.0 Office Visit 07/17/2006 10:30[place] [address] 817.0 847.0 780.57 211.3 300.02 281.0 V04.81 Office Visit 06/21/2006 11:30a Yadira Hoskins, N.P. 58082 788.1 281.0 Office Visit 05/27/2006 9:30a Yadira Hoskins, N.P. 70440 V72.31 569.3 Office Visit 05/22/2006 11:30[place] [address] 300.02 427.31 724.2 723.1 599.7 477.8 Office Visit 12/26/2005 11:00[place] [address] 724.2 723.1 Office Visit 11/19/2005 2:00p Yadira Hoskins, N.P. 11016 465.9 008.8 Office Visit 11/07/2005 11:15[place] [address] 846.0 Office Visit 10/10/2005 11:00[place] [address] 780.4 723.1 296.32 Office Visit 09/12/2005 8:00[place] [address] 009.0 296.32 266.2 281.0 Office Visit 07/11/2005 11:45[place] [address] 296.32 780.79 281.0 723.1 266.2 Office Visit 05/16/2005 9:45a [place] [address] 296.32 719.46 Office Visit 03/07/2005 11:30[place] [address] 272.0 296.22 783.1 Office Visit 12/26/2004 11:45a Yadira Hoskins, N.P. 07578 300.02 788.1 786.50 Office Visit 12/06/2004 11:15[place] [address] 280.9 786.51 Office Visit 10/04/2004 1:00p [place] [address] 723.1 281.0 780.79 784.0 826.0 Office Visit 09/07/2004 1:15p Yadira Hoskins, N.P. 81253 724.2 296.32 599.0 Office Visit 07/10/2004 1:00[place] [address] 784.0 719.47 Office Visit 05/22/2004 11:00[place] [address] 780.4 380.10 783.1 Office Visit 05/11/2004 10:15a Yadira Hoskins, N.P. 68700 723.1 296.32 780.4 Office Visit 03/08/2004 12:00p Yadira Hoskins, N.P. 32512 786.51 296.32 780.79 Office Visit 02/14/2004 9:00[place] [address] 300.02 V58.61 296.32 310.2 Office Visit 02/08/2004 10:15a Yadira Hoskins, N.P. 47555 V58.61 300.02 296.32 780.4 Office Visit 02/07/2004 11:00[place] [address] V58.61 300.02 427.31 780.4 787.01 Office Visit 02/03/2004 1:15p Yadira Hoskins, N.P. 09594 300.02 296.32 780.4 787.02 Office Visit 01/20/2004 12:15p Yadira Hoskins, N.P. 69211 892.0 Office Visit 01/03/2004 11:15[place] [address] V58.61 427.31 786.51 919.6 285.9 Office Visit 12/06/2003 10:45[place] [address] 281.0 784.0 726.73 780.93 Office Visit 10/07/2003 4:00p Yadira Hoskins, N.P. 57819 477.0 296.32 784.0 372.05 Office Visit 10/04/2003 11:00[place] [address] 493.10 298.9 310.2 V18.0 Office Visit 09/28/2003 1:30p Yadira Hoskins, N.P. 64696 780.79 784.0 780.93 298.9 Office Visit 05/24/2003 12:45p Yadira Hoskins, N.P. 82439 599.0 Office Visit 02/19/2003 9:15a Yadira Hoskins, N.P. 13598 595.0 Plan of Care Future Appointment(s):06/12/2018 1:00 pm - Rafal Miranda PA at [id number] 9:45 am - Marlee Rhoades MD at [id number]/13/2018 - Rafal Miranda PAR42 Dizziness and giddinessNew Xrays:Carotid Doppler Duplex Scan-Complete Bilateral StudyEchocardiogramMRI Brain W & W/O ContrastComments:needs cardio work up. check basic labs. does not make sense that this would be neuro with acute change 3yrs after concussion/tbi.Referral:Rosy Johnson, Cardiology/Phys/ OsteoFollow up:f/u [id number] Postconcussional syndromeNew Xrays:Carotid Doppler Duplex Scan-Complete Bilateral StudyEchocardiogramMRI Brain W & W/O ContrastComments:3 yrs s/p TBI. ??why acute change now. no other focal neuro impairment.R94.31 Abnormal electrocardiogram [ECG] [EKG]New Xrays:Carotid Doppler Duplex Scan-Complete Bilateral StudyEchocardiogramMRI Brain W & W/O ContrastComments:??ST elevation inferior. referring to cardio and getting Echo and Carotid doppler.E83.42 Hypomagnesemia
--- NOTE | 2018-06-04 10:30 | RAD ---
HISTORY: chest pain/shortness of breath COMPARISONS: May 10, 2018 VIEWS: 1: frontal AP view of the chest at 9:45 AM FINDINGS: LINES AND TUBES: None. CARDIOMEDIASTINAL SILHOUETTE: The cardiomediastinal silhouette is normal for portable technique. PLEURA: The costophrenic angles are sharp. No pleural abnormalities are noted. LUNG PARENCHYMA: There is hyperinflation. ABDOMEN: The upper abdomen is clear. There is no subphrenic gas. BONES AND SOFT TISSUES: There is a dextroscoliotic curvature of the spine. IMPRESSION: COPD. NO ACTIVE CARDIOPULMONARY DISEASE.
[2018-06-04] MEDS ORDERED: Al Hydrox/Mg Hydrox/Simet LIQ* 30 ML UDC PO PRN (11:52)
[2018-06-04] MEDS ORDERED: oxyCODONE/Acetamin 5/325 MG* TAB PO PRN (11:52)
[2018-06-04] MEDS ORDERED: Morphine VIAL* 4 MG/ML VIAL (1 ml vial) IV PRN (11:52)
[2018-06-04] MEDS ORDERED: Ondansetron INJ* 2 MG/ML VIAL IV PRN (11:52)
[2018-06-04] MEDS ORDERED: Nitroglycerin TAB 0.4 MG* 0.4 MG TAB SL ONE ×2 (11:59→12:03)
[2018-06-04] MEDS ORDERED: Albuterol HFA INHALER* 8 gm MDI INH PRN (12:00)
[2018-06-04] MEDS ORDERED: Meclizine TAB* 12.5 MG PO PRN (12:01)
[2018-06-04] MEDS: Heparin VIAL(*) 5000 UNITS/ML VIAL (FIVE THOUSAND) SUBCUT SCH ×2 (15:10→20:49)
[2018-06-04] MEDS: Acetaminophen TAB* 325 MG PO PRN ×2 (15:17→20:17)
--- NOTE | 2018-06-04 15:49 | HP ---
CC: Dr. Rhoades; Dr. 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 Rox Gbibs.* (DICTATED BY CARLOS A ALLEN) PRIMARY CARE PROVIDER: Dr. Marlee Rhoades. PRIMARY IT DESKTOP SUPPORT TECHNICIAN: Dr. Alvares in [place], [place]. CHIEF COMPLAINT: Chest pain and shortness of breath. HISTORY OF PRESENT ILLNESS: Mrs. Perez is a 68-year-old female with past medical history significant for asthma and rectal cancer for which she had surgery followed by a radiation with the last dose about 3 years ago, who presented to the emergency room at [facility] with complaints of worsening chest pain this morning. The patient reports intermittent chest pain on and off for the past 2 weeks, seems to come and go without aggravating factors and it happens mostly at rest. She was awakened this morning and noticed worsening chest pain, localized to the left area with associated shortness of breath. She denies any calf pain, history of DVT or PE. She was seen by her primary care provider last week and had extensive workup including echocardiogram that she tells me was essentially unremarkable as well as MRI of the head and carotid ultrasound, both came back negative. She also had a lipid panel that showed borderline hyperlipidemia, however, her PCP did not think she needs to initiate any therapy. Given her pain this morning, she presented to the emergency room for further evaluation. The patient has a history of rectal cancer for which she had a surgery with colectomy done in [place] few years ago. Then, she had recurrence of cancer that needed adjunct radiation that she had here with Dr. Harris and her last radiation dose was about 3 years ago. She had a colonoscopy done 2 months ago with no evidence of any suspicious lesions. She denied any nausea, vomiting, changes in bowel habits or bleeding per rectum. She was evaluated in the emergency room and had laboratory workup that revealed normal CBC and normal chemistry panel. Her troponin was negative and her urinalysis was negative as well. Her TSH was 2.09. She noticed some improvement of her pain after she was given 2 doses of nitroglycerin in the emergency room and her EKG showed sinus rhythm with no ST changes. The patient also tells me that she has a remote history of atrial fibrillation for which she had some sort of cardiac catheterization done 16 years ago; however, she never had any recurrent AFib and currently on no anticoagulation therapy. PAST MEDICAL HISTORY: As mentioned above significant for: 1. Asthma, mostly exercise induced with changes of weather. 2. Rectal cancer for which she had surgery followed by radiation. 3. Remote history of atrial fibrillation, currently not taking any medication or anticoagulation therapy. PAST SURGICAL HISTORY: Significant for colon resection due to rectal cancer followed by radiation. She also had bladder surgery years ago and cardiac catheterization for what appeared to be history of atrial fibrillation. CURRENT MEDICATIONS: Her medications at home include: 1. Aspirin 81 mg p.o. daily. 2. Albuterol metered-dosed inhaler 2 puffs q.4 hours as needed for shortness of breath. 3. Meclizine 12.5 mg p.o. q.8 hours as needed for dizziness. ALLERGIES: She is allergic to SULFA, COLD WEATHER, and BEES. FAMILY HISTORY: Significant for a coronary artery disease with a history of FL in her maternal side. SOCIAL HISTORY: The patient is a nonsmoker, who denies alcohol intake or illicit drug use. 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 She lives with her and listed him as a healthcare proxy carrier and she wishes to be a full code. REVIEW OF SYSTEMS: See HPI. Otherwise, a 14-point review of systems were examined that was essentially negative. PHYSICAL EXAMINATION GENERAL: She is a pleasant, upper middle-aged female, appears healthy and in no acute distress or discomfort at the time of admission. VITAL SIGNS: Her vitals revealed temperature of 99.8, pulse of 68, blood pressure 131/88, respirations of 13 with O2 sat of 99% on room air. HEENT: Head is normocephalic, atraumatic. Sclerae anicteric. PERRLA. EOMs intact. Oropharynx is pink and moist. NECK: Supple. Trachea midline. No cervical adenopathy, thyromegaly or JVD. LUNGS: Clear to auscultation bilaterally. HEART: Regular rate and rhythm. Normal S1 and S2 without rubs, murmurs or gallops. BACK: With normal curvature. No CVA tenderness. BREASTS: Exam deferred at this time. ABDOMEN: Soft, nontender, and nondistended. No hernias, masses or hepatosplenomegaly. EXTREMITIES: Without cyanosis, clubbing or edema. RECTAL: Exam deferred at this time. NEUROLOGIC: She is awake, alert, and oriented x3. Handgrip is equal bilaterally. Tongue is midline. Cranial nerves II through XII are grossly intact and sensation is intact throughout. DIAGNOSTIC STUDIES/LAB DATA: Laboratory Workup: CBC with white count of 4000 , hemoglobin 13.8, hematocrit of 40, and platelets of 201. Chemistry with sodium of 139, potassium of 4, chloride 107, CO2 of 24, BUN of 11, and creatinine of 0.7. Her glucose is 101. Lactic acid is 0.8, magnesium 2.1. LFTs within normal limits. Troponin was 0. BNP 38 and her D-dimer was less than 200. Accessory Diagnostic Data: Chest x-ray with no acute cardiopulmonary issues. Her EKG showed sinus rhythm with mid 70s rate. No evidence of AFib or ST changes. IMPRESSION AND PLAN: A 68-year-old female with a history of asthma and rectal cancer, who presented to the emergency room with intermittent chest pain for the past 2 weeks, seemed to be worse this morning, who will be admitted under hospitalist services for observation at the telemetry unit for the following assessment and plan. 1. Chest pain. Her troponin appeared negative on the first draw and we will continue to trend her troponin and repeat EKG in the morning. Her chest pain had significantly improved after a dose of nitroglycerin. The patient carries risks for coronary artery disease given her age, history of cancer, and borderline hyperlipidemia per herself. I did call in to obtain records from Dr. Rhoades's office including her recent echocardiogram, laboratory workup and MRI of the brain. The patient appears clinically stable and denied any tachypnea or shortness of breath at rest. Her D-dimer was negative and I will continue to monitor her and if she continued to have any significant shortness of breath or desaturation, I would go ahead and get a CTA of her chest to rule out pulmonary embolism, however, again, her D-dimer is negative and her oxygen saturation has been maintained very well on room air. I will also go ahead and schedule her for nuclear stress test tomorrow. The patient tells me that she was originally scheduled as an outpatient next week at [facility] for stress test, however, she was concerned about her chest pain this morning and this is why she came here to the emergency room for evaluation. 2. Asthma. It appears to be stable. We will continue her albuterol MDI as needed as well as nebulizer. 3. History of rectal cancer. She is in remission. No radiation for 3 years and recent colonoscopy 2 months ago was essentially normal. 4. DVT prophylaxis. With her history of malignancy and obesity, the patient is at highest risk for DVT and will be covered with both heparin subcu and SCDs. 5. Code status. She wishes to be a full code. 6. Admit to telemetry for observation, rule out acute coronary syndrome and a stress test scheduled for morning. TIME SPENT: Approximately, 60 minutes spent admitting this patient for which greater than 50% of that time taking history and performing physical exam. I went on and discussed the case with my attending, who agreed to plan of care. CARLOS A ALLEN [id number]/CPS #: [id number] MTDKimberley
[2018-06-04] MEDS: Melatonin 3 MG TAB PO PRN (20:49)
[2018-06-04] MEDS ORDERED: Loperamide CAP* 2 MG PO PRN (22:56)
[2018-06-05] MEDS: Heparin VIAL(*) 5000 UNITS/ML VIAL (FIVE THOUSAND) SUBCUT SCH ×3 (05:07→21:49)
[2018-06-05 07:04] LABS: ABS Basophils 0 10^3/ul (0-0.2); ABS Eosinophils 0.1 10^3/ul (0-0.6); ABS Lymphocytes 0.9 10^3/ul (1.0-4.8); ABS Monocytes 0.2 10^3/ul (0-0.8); ABS Neutrophils 2.2 10^3/ul (1.5-7.7); ABS Nucleated RBC 0 10^3/ul; Eosinophil % 4.1 % (0-6); Hematocrit 39 % (35-47); Hemoglobin 13.1 g/dl (12.0-16.0); Lymphocyte % 24.6 % (25-47); Mean Corpuscular HGB Conc 34 g/dl (31-36); Mean Corpuscular Hemoglobin 30 pg (27-31); Mean Corpuscular Volume 87 fL (80-97); Mean Platelet Volume 8.5 um3 (7.4-10.4); Nucleated Red Blood Cells % 0.1; Platelet Count 183 10^3/ul (150-450); Red Blood Count 4.42 10^6/ul (4.00-5.40); Red Cell Distribution Width 14 % (10.5-15); White Blood Count 3.5 10^3/ul (3.5-10.8)
[2018-06-05 07:23] LABS: EGFR Non-African American 95.7 (>60)
[2018-06-05] MEDS ORDERED: Regadenoson* 0.4 MG/5 ML SYRINGE ONE (07:45)
[2018-06-05] MEDS ORDERED: Aminophylline IV* 25 MG/ML 10 ML VIAL ONE (09:00)
--- NOTE | 2018-06-05 11:58 | PN ---
Subjective Date of Service: 06/05/18 Interval History: reports that chest pain is improved , continues to reports mild pressure this AM, denies diaphoresis. Denies abd pain n/v/d. Denies cough or congestion, fever or chills. Does report similar pressure symptom that is reproducible with palpation to left chest . Family History: Unchanged from Admission Social History: Unchanged from Admission Past Medical History: Unchanged from Admission Objective Active Medications: Acetaminophen (Tylenol Tab*) 650 mg PO Q4H PRN PRN Reason: FEVER/PAIN Last Admin: 06/04/18 20:17 Dose: 650 mg Al Hydrox/Mg Hydrox/Simethicone (Maalox Plus*) 30 ml PO Q6H PRN PRN Reason: INDIGESTION Albuterol (Ventolin 2.5 Mg/3 Ml Neb.Jana*) 2.5 mg INH RT.[id number] AWAKE PRN PRN Reason: sob/wheezing Albuterol (Ventolin Hfa Inhaler*) 2 puff INH Q4H PRN PRN Reason: SOB/WHEEZING Last Admin: 06/04/18 20:13 Dose: 2 puff Heparin Sodium (Porcine) (Heparin Vial(*)) 5,000 units SUBCUT Q8HR YANET Last Admin: 06/05/18 05:07 Dose: 5,000 units Loperamide HCl (Imodium Cap*) 2 mg PO Q6H PRN PRN Reason: DIARRHEA Last Admin: 06/04/18 23:06 Dose: 2 mg Meclizine HCl (Antivert Tab*) 12.5 mg PO Q8HR PRN PRN Reason: DIZZINESS Melatonin (Melatonin) 3 mg PO BEDTIME PRN; Protocol PRN Reason: SLEEP Last Admin: 06/04/18 20:49 Dose: 3 mg Morphine Sulfate (Morphine Vial*) 2 mg IV Q2H PRN PRN Reason: PAIN Ondansetron HCl (Zofran Inj*) 4 mg IV Q4H PRN PRN Reason: NAUSEA/VOMITING Oxycodone/Acetaminophen (Percocet 5/325 Tab*) 1 tab PO Q4H PRN PRN Reason: Pain Vital Signs - 8 hr 06/05/18 06/05/18 03:58 08:02 Temperature 97.6 F 99.0 F Pulse Rate 65 64 Respiratory 18 20 Rate Blood Pressure 102/63 104/61 (mmHg) O2 Sat by Pulse 98 98 Oximetry Oxygen Devices in Use Now: None Appearance: alert, resting in bed, no acute distress Eyes: No Scleral Icterus Ears/Nose/Mouth/Throat: Clear Oropharnyx, Mucous Membranes Moist Neck: NL Appearance and Movements; NL JVP, Trachea Midline Respiratory: Symmetrical Chest Expansion and Respiratory Effort, Clear to Auscultation Cardiovascular: NL Sounds; No Murmurs; No JVD, No Edema Abdominal: NL Sounds; No Tenderness; No Distention Extremities: No Edema, No Clubbing, Cyanosis Skin: No Rash or Ulcers Neurological: Alert and Oriented x 3 Nutrition: Taking PO's Result Diagrams: 06/05/18 06:42 06/05/18 06:42 Assess/Plan/Problems-Billing Assessment: Ms. Perez is a 68 y.o female with a PMHX of asthma and rectal CA that is in remission. who presented to the emergency room with chest pain. - Patient Problems (1) Chest pain Current Visit: Yes Status: Acute Code(s): R07.9 - CHEST PAIN, UNSPECIFIED SNOMED Code(s): 38775344 Comment: nuclear stress -EKG portion of the stress test showing changes, rad impression of the Nuclear portion showing- small to moderate profusion defect and reverible ischemic changes in the anterior and spetal regions - DR. Upton consulted - will repeat exercise stress in the AM troponin negative x 3 at 0.00 no EKG changes (2) Asthma Current Visit: Yes Status: Acute Code(s): J45.909 - UNSPECIFIED ASTHMA, UNCOMPLICATED SNOMED Code(s): 094586633 Comment: controlled not in exacerbation continue albuterol (3) History of rectal cancer Current Visit: Yes Status: Acute Code(s): Z85.048 - PRSNL HX OF MALIG NEOPLM OF RECTUM, RECTOSIG JUNCT, AND ANUS SNOMED Code(s): 881402272 (4) DVT prophylaxis Current Visit: Yes Status: Acute Code(s): YRY4881 - SNOMED Code(s): 078351549 Comment: HSQ (5) Full code status Current Visit: Yes Status: Acute Code(s): Z78.9 - OTHER SPECIFIED HEALTH STATUS SNOMED Code(s): 939163870 Status and Disposition: obv
--- NOTE | 2018-06-05 13:55 | RAD ---
HISTORY: Chest pain COMPARISONS: None TECHNIQUE: A 1 day stress/rest myocardial perfusion study was performed, with pharmacologic stress. The stress portion was monitored by Dr. Briggs. Gated SPECT imaging was performed, with CT-based attenuation correction DOSE: Stress: Technetium 99m tetrofosmin, 25.9 millicuries, injected at 12:37 PM on June 05, 2018 Rest: Technetium 99m tetrofosmin, 10.4 millicuries, injected at 7:15 AM on June 05, 2018 Pharmacologic agent: Lexiscan FINDINGS: CARDIAC MONITORING: Downsloping ST segments with T wave inversions with stress EF: 61 % TID: 0.88 MOTION: Normal motion, with normal wall thickening. PERFUSION: There is a small to moderate reversible perfusion defect of the anteroseptal wall OTHER: None IMPRESSION: SMALL TO MODERATE REVERSIBLE PERFUSION DEFECT OF THE ANTERIOR WALL TOWARDS THE SEPTUM SUGGESTIVE OF ISCHEMIA. ASSESSMENT: INTERMEDIATE RISK. Based on imaging criteria from ACC/AHA 2002. Guideline Update for the Management of Patient's with Chronic Stable Angina, table 23. Noninvasive Risk Stratification.
[2018-06-05] MEDS: Acetaminophen TAB* 325 MG PO PRN ×2 (15:03→23:52)
--- NOTE | 2018-06-05 21:29 | CONS ---
CC: Dr. Rhoades; Dr. Alvares, [facility], [place], [place], Fax#: [phone], [facility]* CARDIOLOGY CONSULTATION REPORT: DATE OF CONSULT: 06/05/18 INDICATION FOR CONSULT: The patient presents with chest discomfort, underwent a Lexiscan stress test that was reported as abnormal, now asked to commend on need for further evaluation. HISTORY OF PRESENT ILLNESS: The patient is a pleasant 68-year-old female with no prior known ischemic cardiac history. She did have a history of undergoing a cardiac catheterization back in 2003, which was found to be normal for an abnormal exercise nuclear stress test. She was in her usual state of health until a couple of weeks ago, when she presented to the hospital not feeling well , somewhat dizzy, and ended up going home. Since that time, she has noticed mild left-sided chest tightness that is at times predictable and other times unpredictable. Occasionally, she has noted it with walking. She has then able to do other activity without provoking symptoms. Saturday night, as she was going to lie down at 11 p.m., she noted mild onset of left-sided chest tightness. She took 2 baby aspirin. At 4:30 in the morning on Saturday, she woke up and had more severe chest tightness with mild shortness of breath. She also started noticing right hand and arm tingling and numbness. She tried to drink some water and walk around and it did not seem to get better, if anything , they got worse. She ended up taking 4 baby aspirin at 6 a.m. and by 7 a.m., her was ready to take her to the emergency room. She presented to the emergency room at 7:41 a.m. She still was having symptoms and EKG was recorded time 7:53 a.m. That EKG failed to show any significant acute ST-T wave changes , there was perhaps borderline NJ prolongation. Over the course of the hospitalization, her cardiac enzymes were cycled at 8:17 with the troponin that was 0 and an MB of 2.2 and a total CPK of 64. From that point on, only troponins were obtained, one was obtained on 11:24 a.m. and that was 0 and 14: 17 and that was 0. She had a repeat EKG, which was performed today on 06/05/18 at 08:12 and it did not show any significant acute ST-T wave changes, but the NJ interval was borderline prolonged again. It should be noted that when she presented to the emergency room, she was almost 4 hours into the chest discomfort and the chest discomfort did not go away for another hour or so after she had gotten some nitroglycerin. In reality actually, it did not completely go away, got better and eventually had remnants of it all the way until last night. This morning, she stated she had no chest discomfort when she woke up. She underwent a Lexiscan stress test, during which time, the EKG portion developed ST-segment mild downsloping with T-wave inversions in the inferior leads as well as V3 through V6. The nuclear report was reported by Radiology as showing small-to- moderate reversible perfusion defect to the anterior wall toward the septum suggesting ischemia. Her left ventricular ejection fraction was estimated at 61% with no wall motion abnormality. As such, we are now asked to see her to comment on her cardiac status and how to proceed from here. Cardiac risk factors: The patient denies any history of hypertension, any history of diabetes. She states that most recently, she was told her cholesterol was borderline. She does not smoke and there is a questionable family history on the mother's side of family, but it did not sound like the immediate family. PAST MEDICAL HISTORY: History of asthma, mostly exercise induced with changes in weather. She has a history of rectal cancer and had surgery followed by radiation and she has a remote history of atrial fibrillation, which occurred back in 2003 for which she underwent a stress test and subsequently a heart catheterization, which revealed no significant coronary artery disease. MEDICATIONS: Current medications at home include: 1. Aspirin 81 mg a day. 2. Albuterol dose inhaler as needed. 3. Meclizine for dizziness. ALLERGIES: SULFA, COLD WEATHER, and BEES. SOCIAL HISTORY: Nonsmoker. Denies any alcohol or illicit drug usage and lives with her . REVIEW OF SYSTEMS: As per the H and P with no additional findings. PHYSICAL EXAM: When I see her, reveals a pleasant female, talkative in nature, in no acute distress. Vital signs revealed blood pressure 110/67, pulse is 65 and regular, respirations 16, O2 saturation last checked was anywhere from 97% to 100%. Neck was supple. No increased JVP. Carotid with good upstroke and volume without bruits. Conjunctivae are pink. Sclerae are clear. Lungs reveal no accessory muscle usage. There is good excursion. There are no active rales, rhonchi, or wheezes. Heart reveals no visible heaves. No palpable heaves or thrills. Normal S1, S2 with no S3, S4, or gallop. No significant systolic or diastolic murmur appreciated. Abdomen is mildly obese, soft, nontender. Extremities are without clubbing, cyanosis, or jess pitting edema. Neuro: The patient is alert and oriented with normal mentation. Musculoskeletal: The patient with normal gait. Psychiatric: The patient with normal affect. DIAGNOSTIC STUDIES/LAB DATA: Chest x-ray revealed hyperinflation of the lungs suggestive of COPD with no active cardiopulmonary disease. Laboratory results reveal initial sodium of 139, potassium 4.0, chloride 102, bicarb 24, BUN and creatinine of 11 and 0.7, lactic acid 0.8. SGOT 20, SGPT 19. Magnesium 2.1. Troponin is 0.00 x3. B-natriuretic peptide is 38. TSH is 2.09. Repeat BNP reveals BUN and creatinine of 12 and 0.6. Hemoglobin and hematocrit on admission 13.8 and 40, white count 4100 with a platelet count of 201,000. EKGs were as described above. OVERALL ASSESSMENT: Daxa presents now with a chest tightness that is somewhat atypical in nature in the fact that she could have it for 3-1/2 hours before presenting to the ER and perhaps at least an hour or more after that where it became less, but did not completely go away, but had 3 sets of troponins that were all 0.00. That in and of itself would suggest that this was not an acute coronary syndrome. Interestingly, I do not know what to make out of the abnormal Lexiscan stress test by EKG. She apparently did have an echocardiogram done at a scientific software engineer's office up at [place] along with the Holter monitor and was told the echocardiogram was normal and we will try to get the results of that first thing tomorrow morning. Her Holter monitor did not show any profound arrhythmias showing very rare premature ventricular contractions with a few couplets and no significant supraventricular tachy or jerome arrhythmias with isolated premature ventricular contractions and short atrial runs of 4 beats which were rare. There was no atrial fibrillation. During the time of her chest discomfort, right arm numbness, and shortness of breath, there were no significant arrhythmias or definitive ST-segment changes that were noted. I had a lengthy discussion with her daughter who is a PA in the emergency room in [place], [place], and explained the different options including attempted medical management versus a cardiac catheterization for a definitive answer versus repeat stress testing perhaps by doing a regular exercise stress test and see if we can provoke symptoms and EKG changes. The decision was made to proceed with the exercise regular stress test. If we are able to provoke symptoms and EKG changes, consideration would then be made for cardiac catheterization. Thank you very much for having asked us to see the patient in consultation. We will follow her along with you. [id number]/[facility] #: [id number] KAROLINA
[2018-06-05] MEDS: Albuterol 2.5 MG/3 ML NEB.SOL* (0.083%) INH PRN (21:59)
[2018-06-05] MEDS: Melatonin 3 MG TAB PO PRN (23:58)
[2018-06-06] MEDS: Heparin VIAL(*) 5000 UNITS/ML VIAL (FIVE THOUSAND) SUBCUT SCH (07:03)
[2018-06-06] MEDS: Albuterol 2.5 MG/3 ML NEB.SOL* (0.083%) INH PRN (09:34)
--- NOTE | 2018-06-06 09:43 | PN ---
Subjective Date of Service: 06/06/18 Interval History: Continues to c/o left sided chest pressure, states that she felt stressed about testing results, states that she feels better now. Denies shortness of breath. Denies abd pain n/v/d. Family History: Unchanged from Admission Social History: Unchanged from Admission Past Medical History: Unchanged from Admission Objective Active Medications: Acetaminophen (Tylenol Tab*) 650 mg PO Q4H PRN PRN Reason: FEVER/PAIN Last Admin: 06/05/18 23:52 Dose: 650 mg Al Hydrox/Mg Hydrox/Simethicone (Maalox Plus*) 30 ml PO Q6H PRN PRN Reason: INDIGESTION Albuterol (Ventolin 2.5 Mg/3 Ml Neb.Jana*) 2.5 mg INH RT.[id number] AWAKE PRN PRN Reason: sob/wheezing Last Admin: 06/06/18 09:34 Dose: 2.5 mg Albuterol (Ventolin Hfa Inhaler*) 2 puff INH Q4H PRN PRN Reason: SOB/WHEEZING Last Admin: 06/04/18 20:13 Dose: 2 puff Heparin Sodium (Porcine) (Heparin Vial(*)) 5,000 units SUBCUT Q8HR YANET Last Admin: 06/06/18 07:03 Dose: 5,000 units Loperamide HCl (Imodium Cap*) 2 mg PO Q6H PRN PRN Reason: DIARRHEA Last Admin: 06/04/18 23:06 Dose: 2 mg Meclizine HCl (Antivert Tab*) 12.5 mg PO Q8HR PRN PRN Reason: DIZZINESS Melatonin (Melatonin) 3 mg PO BEDTIME PRN; Protocol PRN Reason: SLEEP Last Admin: 06/05/18 23:58 Dose: 3 mg Morphine Sulfate (Morphine Vial*) 2 mg IV Q2H PRN PRN Reason: PAIN Ondansetron HCl (Zofran Inj*) 4 mg IV Q4H PRN PRN Reason: NAUSEA/VOMITING Oxycodone/Acetaminophen (Percocet 5/325 Tab*) 1 tab PO Q4H PRN PRN Reason: Pain Vital Signs - 8 hr 06/06/18 06/06/18 03:09 07:42 Temperature 97.5 F 97.6 F Pulse Rate 66 68 Respiratory 20 20 Rate Blood Pressure 100/59 134/70 (mmHg) O2 Sat by Pulse 93 99 Oximetry Oxygen Devices in Use Now: None Appearance: alert oriented x2 , no acute distress Eyes: No Scleral Icterus Ears/Nose/Mouth/Throat: Clear Oropharnyx, Mucous Membranes Moist Neck: NL Appearance and Movements; NL JVP, Trachea Midline Respiratory: Symmetrical Chest Expansion and Respiratory Effort, Clear to Auscultation Cardiovascular: NL Sounds; No Murmurs; No JVD, No Edema Abdominal: NL Sounds; No Tenderness; No Distention Extremities: No Edema, No Clubbing, Cyanosis Skin: No Rash or Ulcers Neurological: Alert and Oriented x 3 Nutrition: Taking PO's Result Diagrams: 06/05/18 06:42 06/05/18 06:42 Assess/Plan/Problems-Billing Assessment: Ms. Perez is a 68 y.o female with a PMHX of asthma and rectal CA that is in remission. who presented to the emergency room with chest pain. - Patient Problems (1) Chest pain Current Visit: Yes Status: Acute Code(s): R07.9 - CHEST PAIN, UNSPECIFIED SNOMED Code(s): 82773145 Comment: nuclear stress -EKG portion of the stress test showing changes, rad impression of the Nuclear portion showing- small to moderate profusion defect and reverible ischemic changes in the anterior and spetal regions - DR. Upton consulted - exercise stress today showed troponin negative x 3 at 0.00 no EKG changes (2) Asthma Current Visit: Yes Status: Acute Code(s): J45.909 - UNSPECIFIED ASTHMA, UNCOMPLICATED SNOMED Code(s): 327174086 Comment: controlled not in exacerbation continue albuterol (3) History of rectal cancer Current Visit: Yes Status: Acute Code(s): Z85.048 - PRSNL HX OF MALIG NEOPLM OF RECTUM, RECTOSIG JUNCT, AND ANUS SNOMED Code(s): 491107886 Comment: in remission - not a current issue (4) DVT prophylaxis Current Visit: Yes Status: Acute Code(s): WQU6233 - SNOMED Code(s): 513551732 Comment: HSQ (5) Full code status Current Visit: Yes Status: Acute Code(s): Z78.9 - OTHER SPECIFIED HEALTH STATUS SNOMED Code(s): 229880943 Status and Disposition: obv
--- NOTE | 2018-06-06 10:05 | RAD ---
INDICATION: Chest pain, shortness of breath, family history of heart disease. COMPARISON: No relevant prior exams available on the [facility] for comparison. TECHNIQUE: On June 05, 2018, 10.400 mCi of Tc-99m Myoview were administered IV. SPECT images of the heart were obtained. On 06/06/2018 Under the direction of Dr. Briggs, an exercise stress test was performed. The patient achieved a peak heart rate of 149 bpm, 98 % of the age-predicted maximum. Subsequently, the patient was given an IV injection of 25.900 mCi Tc-99m Myoview. SPECT images of the heart were obtained and a gated wall motion study was performed. FINDINGS: Gated wall motion images were obtained at stress and demonstrate wall motion to be within normal limits. The calculated left ventricular ejection fraction is 65 % at stress. Estimated LEFT ventricular end diastolic volume is 74 mL. TID 0.92. Based on review of the attenuation corrected and non corrected images the distribution of radiopharmaceutical within the myocardium on the stress and rest images is within normal limits. No fixed or reversible regions of hypoperfusion evident. IMPRESSION: #. No evidence for stress-induced ischemia or presence of an infarct. #. Normal LEFT ventricular wall motion and ejection fraction. ASSESSMENT: Low risk based on nuclear portion. Based on imaging criteria from ACC/AHA 2002 Guideline Update for the Management of Patients With Chronic Stable Angina Table 23. Noninvasive Risk Stratification.
[2018-06-06 11:25] VITALS: BP 115/63
[2018-06-06] MEDS: Acetaminophen TAB* 325 MG PO PRN (12:52)
--- NOTE | 2018-06-09 10:04 | DS ---
CC: Dr. Rhoades; Dr. Alvares DISCHARGE SUMMARY: DATE OF ADMISSION: 06/04/18 DATE OF DISCHARGE: 06/06/18 ATTENDING PHYSICIAN: Kylie Bustamante MD (dictated by Юлия Moran NP) PRIMARY CARE PROVIDER: Marlee Rhoades MD PRIMARY DIAGNOSIS: Chest pain. SECONDARY DIAGNOSES: 1. Asthma. 2. History of rectal cancer followed by radiation. 3. Remote history of atrial fibrillation. STUDIES COMPLETED WHILE IN THE HOSPITAL: She had a Lexiscan nuclear stress test on 06/05/18, which t he color television console monitor showed downsloping in the ST segments with T- wave inversions with the stress test . Her EF was 61%. Normal motion with normal wall thickening. Impression: [id number] revers ible perfusion deficit in the anterior wall towards the septum suggested of ischemia. She had a repe at exercise nuclear stress test on 06/06/18. Impression: Low risk based on nuclear portion. There was no evidence of stress-induced ischemia or presence of infarct. Normal left ventricular wall motio n and ejection fraction. The calculated ejection fraction on the exercise nuclear stress test was 65 %. She was able to achieve peak heart rate at 149 beats a minute, 98% of age predicted maximum. She had a chest x- ray on 06/04/18, radiologist's impression: No active cardiopulmonary disease. DISCHARGE MEDICATIONS: No new home medications. Continued home medications: 1. Aspirin 81 mg p.o. daily. 2. Albuterol inhaler 2 puffs q.4 hours as needed for shortness of breath. 3. Meclizine 12.5 mg q.8 hours as needed for dizziness. HISTORY OF PRESENT ILLNESS AND HOSPITAL COURSE: Ms. Perez is a 68-year-old female with a past [facility] history significant for asthma, rectal cancer followed by surgery and radiation, which has been i n remission for 3 years and a remote history of atrial fibrillation, who presented to the emergency r oom at [facility] with complaints of chest pain. This morning, she reports intermittent c hest pain on and off for 2 weeks that seems to come and go without aggravating factors and happens mo stly at rest. She was awake in the morning of her admission and noticed worsening chest pain localiz ed to the left chest associated with some shortness of breath. She denies any calf pain. She denies any history of DVT or PE. She states that she was seen by her primary care provider last week and h ad extensive workup including an echocardiogram that she reports was within normal limits. She had a n MRI of the head and carotid ultrasound, which all came back negative. She also had a lipid panel s howing borderline hyperlipidemia; however, her PCP did not feel she needed to be initiated on any the rapy at this time. Given her pain this morning, she presented to the emergency room for further eval uation. The patient does report she had a colonoscopy approximately 2 months ago and there was no ev idence for suspicious lesions. She denies any recent illnesses. Denies any nausea, vomiting associa jorge with her chest pain. She denies any diaphoresis. She did receive 2 doses of nitroglycerin in th e emergency room and noticed that her chest pain did improve. She did have an EKG that showed sinus r hythm with no ST changes. She does report that she had a cardiac catheterization approximately 16 ye ars ago; however, she has never had any recurrent issues with atrial fibrillation since then and is c urrently not on any medication or anticoagulation. The patient was monitored on telemetry throughout her hospitalization. She had no arrhythmias on the monitor. She remained in sinus rhythm. She did initially have a nuclear stress test with Lexiscan, which showed some downsloping and ST and T- wave changes. She was seen in consultation by Dr. Keven lucero from Cardiology, who recommended repeating an exercise stress test. Dr. Briggs recommended repeati ng a stress test with exercise to see if we could provoke symptoms and EKG changes, the patient did p roceed with a nuclear exercise stress the proceeding day. She did again have some downsloping with p osition change. The patient exercises 98% on the maximum predicted heart rate with a heart rate of 14 9 beats per minute. She had no further changes in her EKG. The nuclear portion of the stress test w as read as low risk. Dr. Briggs felt that the patient's source of chest discomfort was not related t o cardiac and that she was stable for discharge home from a cardiac standpoint. The patient had a negative exercise nuclear stress test. At this time, she is stable for discharge h ome. Ms. Perez will be discharged to home today. Vital signs are as follows: Temperature was 97.7, hear t rate 76, respirations 14, O2 saturation 97%, blood pressure 115/63. DISCHARGE PLAN: Ms. Preez will be discharged back home. Activity as tolerated. 1. Chest pain. I believe that this is noncardiac. The patient had initially had some EKG changes w ith Lexiscan nuclear stress test. She did have a repeat exercise nuclear stress test, which was deem ed as low risk and EKG changes were not provoked with exercise. At this time, she should continue on her aspirin as previously prescribed. She should follow up with her primary care provider for furth er evaluation of her chest pain. I would recommend outpatient pulmonary function test for evaluation of her asthma. 2. Asthma. She should continue on her inhalers as previously prescribed. 3. The patient should follow up with her primary care provider in 4 to 7 days. 4. She was instructed returned to the emergency room for any chest pain, shortness of breath, dizzin ess, syncope, or any other concerning symptoms. This is a summarization of her hospitalization. If further details are needed, please obtain the ent [facility] medical record. TIME SPENT: Time spent on this discharge was approximately 60 minutes, greater than half that time w as spent with the patient discussing discharge plans and instructions. CONDITION ON DISCHARGE: Stable. ЮЛИЯ MORAN NP [id number]/[facility] #: [id number]
== END 2018-06-06 15:32 | disposition home or self-care (01) ==
LOC: ED 07:41 → MEDTELE 12:16
PROVIDERS: ADMIT Internal Medicine; ATTEND Internal Medicine
DX: R07.89 Other chest pain (principal); J45.909 Unspecified asthma, uncomplicated; Z85.048 Personal history of other malignant neoplasm of rectum, rectosigmoid junction, and anus; Z79.82 Long term (current) use of aspirin; R11.0 Nausea
CPT/HCPCS: 36415; 71045; 78452; 80048; 80053; 81003; 82550; 82553; 83605; 83735; 83880; 84443; 84484; 85025; 85379; 85610; 85730; 93005; 93017; 94640; 99283; A9270-GY; A9502; G0378; J0280; J1644; J2785